=== PATIENT | female | born 1975 | race Caucasian/White ===

== ENCOUNTER 2019-11-24 13:12 | Outpatient (CLI) | payer BC, SELFPAY ==
[2019-11-24 13:54] LABS: Blood Urea Nitrogen 10 mg/dL (7-17); Calcium 9.1 mg/dL (8.4-10.2); Carbon Dioxide 24 mmol/L (22-30); Chloride 106 mmol/L (98-107); Estimated Glomerular Filt Rate > 60; Glucose 89 mg/dL (65-105); Potassium 3.8 mmol/L (3.4-5.0); Sodium 136 mmol/L (137-145)
== END 2019-11-24 13:13 | disposition home or self-care (01) ==
PROVIDERS: PCP Internal Medicine; Visit Provider Internal Medicine
DX: I10 Essential (primary) hypertension (principal); Z98.84 Bariatric surgery status
CPT/HCPCS: 36415; 80048; 82607

== ENCOUNTER 2019-12-22 08:46 | Outpatient (CLI) | payer BC, SELFPAY ==
[2019-12-22 09:34] LABS: Basophils Percent Auto 0.5 % (0.2-1.2); Eosinophils Absolute Auto 0.1 K/mm3 (0-0.3); Eosinophils Percent Auto 1.6 % (0-4.4); Hematocrit 40.8 % (37.0-47.0); Hemoglobin 13.8 g/dL (12.0-15.0); Immature Granulocyte Absolute 0.02 K/mm3 (0.00-0.031); Immature Granulocyte Percent A 0.3 % (0-0.5); Lymphocytes Absolute Auto 2.41 K/mm3 (0.9-3.2); Mean Corpuscular HGB Conc 33.8 g/dl (32-36); Mean Corpuscular Hemoglobin 31.1 pg (26-34); Mean Corpuscular Volume 91.9 fl (80-100); Monocytes Absolute Auto 0.5 K/mm3 (0.1-0.6); Monocytes Percent Auto 7.1 % (2.6-8.5); Neutrophils Absolute Auto 4.2 K/mm3 (1.3-6.7); Neutrophils Percent Auto 57.5 % (45.5-73.1); Platelet Count Result 250 k/mm3 (150-375); Red Blood Count 4.44 M/mm3 (4.2-5.4); Red Cell Distribution Width 13.1 % (11.5-14.5); White Blood Count 7.3 K/mm3 (4.5-10.0)
[2019-12-22 10:03] LABS: Iron 79 ug/dL (37-170)
[2019-12-22 10:14] LABS: Percent Iron Saturation 25 % (20-50)
== END 2019-12-22 08:47 | disposition home or self-care (01) ==
LOC: ANHLAB 08:48
PROVIDERS: PCP Internal Medicine; Visit Provider Internal Medicine
DX: G25.81 Restless legs syndrome (principal)
CPT/HCPCS: 36415; 82728; 83540; 83550; 85025

== ENCOUNTER 2020-01-05 23:08 | Emergency (ER) | payer BC, SELFPAY ==
[2020-01-05 23:14] VITALS: BP 128/71; PULSE 85; RESP 18; TEMP 36.8; O2SAT 98
--- NOTE | 2020-01-06 00:54 | PC.NURSE ---
called pt's name to waiting room to take her back to a room, no reply. will attempt again when next room available.
--- NOTE | 2020-01-06 01:01 | PC.NURSE ---
attempted to call pt from waiting room again, no answer.
== END 2020-01-06 01:01 | disposition left against medical advice (07) ==
PROVIDERS: PCP Internal Medicine
DX: M79.605 Pain in left leg (principal)
CPT/HCPCS: 99199

== ENCOUNTER 2020-02-09 09:09 | Outpatient (CLI) | payer BC, SELFPAY ==
--- NOTE | 2020-02-09 09:13 | ECG_ITS ---
Measurements Intervals [place] Rate: 61 P: 39 MD: 146 QRS: 46 QRSD: 96 T: 6 QT: 387 QTc: 391 Interpretive Statements SINUS RHYTHM DELAYED PRECORDIAL R/S TRANSITION BORDERLINE ST-T WAVE ABNORMALITY- INFERIOR LEADS BORDERLINE ECG Electronically Signed On 02-09-2020 12:50:45 CDT by Rayray Ruffin D.O.
[2020-02-09 09:55] LABS: Blood Urea Nitrogen 10 mg/dL (7-17); Calcium 9.1 mg/dL (8.4-10.2); Carbon Dioxide 27 mmol/L (22-30); Chloride 102 mmol/L (98-107); Estimated Glomerular Filt Rate > 60; Glucose 95 mg/dL (65-105); Potassium 3.6 mmol/L (3.4-5.0); Sodium 136 mmol/L (137-145)
== END 2020-02-09 09:10 | disposition home or self-care (01) ==
LOC: ANHSURGERY 09:13
PROVIDERS: Anesthesiology; PCP Internal Medicine; Visit Provider Surgery
DX: Z01.818 Encounter for other preprocedural examination (principal); Z51.81 Encounter for therapeutic drug level monitoring; I10 Essential (primary) hypertension
CPT/HCPCS: 36415; 80048; 93005

== ENCOUNTER 2020-02-16 00:32 | Outpatient (CLI) | payer BC, SELFPAY ==
[2020-02-16 19:23] LABS: SARS-CoV-2 RNA PCR Negative
== END 2020-02-16 00:33 | disposition home or self-care (01) ==
LOC: ANHCOVIDDT 00:32
PROVIDERS: PCP Internal Medicine; Visit Provider Surgery
DX: Z01.818 Encounter for other preprocedural examination (principal); Z11.59 Encounter for screening for other viral diseases
CPT/HCPCS: 87635; C9803; U0003

== ENCOUNTER 2020-02-19 02:18 | Day surgery (SDC) | payer BC, SELFPAY ==
[2020-02-06 11:52] VITALS: BMI 36.1
[2020-02-19] VITALS (10 sets, daily range): BP systolic 74–116; BP diastolic 37–67; PULSE 55–71; RESP 10–18; TEMP 36.1–36.2; O2SAT 99–100
--- NOTE | 2020-02-19 08:22 | WPDANESEPPF ---
Anes - Initial Pre Proc Eval Procedure: Operation Date: 02/19/20 12:00 Proposed Procedures p Rectal Exam Under Anesthesia, Lateral Internal Sphincterotomy, Excision Hemorrhoid Skin Tag - Dutch العراقي DO Date/Time: 02/19/20 08:22 Surgeon: Dutch العراقي DO Pre Op Diagnosis: anal fissure, residual hemorrhoid skin tag Patient Data Age: 44 Gender: F Height: 1.6 m Weight: 92.53 kg Allergies Allergy/AdvReac Type Severity Reaction Status Date / Time No Known Allergies Allergy Verified 02/19/20 10:31 Home Medications Medication Instructions Recorded Confirmed Type cyanocobalamin (vitamin B-12) 1,000 mcg PO DAILY 07/04/19 02/19/20 History 1,000 mcg tablet hydrocortisone 2.5 % topical cream 1 applic RECTAL DAILY PRN #28.35 gm 11/30/19 02/19/20 Rx with perineal applicator lisinopril 20 1 tablet PO DAILY #90 tablet 11/30/19 02/19/20 Rx mg-hydrochlorothiazide 12.5 mg tablet phentermine 8 mg tablet 8 mg PO DAILY tablet 11/30/19 02/19/20 History multivitamin 2 tablet PO DAILY 12/08/19 02/19/20 History ferrous sulfate 325 mg (65 mg 325 mg PO DAILY #30 tablet 12/22/19 02/19/20 Rx iron) tablet nystatin 100,000 unit/gram topical 1 applic TOPICAL .PRN gm 12/22/19 02/19/20 History powder albuterol sulfate 2.5 mg INHALATION DIRECTED PRN 02/06/20 02/19/20 History calcium carbonate-vitamin D3 1 tablet PO BID 02/06/20 02/19/20 History [Calcium 500 + D] multivitamin with minerals 1 tablet PO DAILY 02/06/20 02/19/20 History [Hair,Skin and Nails] ropinirole 0.5 mg PO HS 02/06/20 02/19/20 History Date of Service: 02/09/20 Procedure(s): CA 12 lead EKG Accession Number(s): [id number] cc: ~ Measurements Intervals [place] Rate: 61 P: 39 TX: 146 QRS: 46 QRSD: 96 T: 6 QT: 387 QTc: 391 Interpretive Statements SINUS RHYTHM DELAYED PRECORDIAL R/S TRANSITION BORDERLINE ST-T WAVE ABNORMALITY- INFERIOR LEADS BORDERLINE ECG Electronically Signed On 02-09-2020 12:50:45 CDT by Rayray Ruffin D.O. 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 Questions were solicited and answers provided to the satisfaction of the patient/family/POA.
[2020-02-19] MEDS: LACTATED RINGERS 1,000 ML 30 ML IV CONT ×2 (10:35→13:32)
[2020-02-19] MEDS: ACETAMINOPHEN 500 MG TABLET 1000 MG PO (10:40)
--- NOTE | 2020-02-19 11:13 | WPDHPUPDATE1 ---
History and Physical Update Update Date/Time: 02/19/20 11:13 History and Physical has been reviewed, including an updated exam of the patient. There are NO changes in the patient's condition. Risks, benefits, and alternatives have been discussed and questions answered. Patient agrees to proceed with procedure.
[2020-02-19] MEDS: ceFAZolin 2 GM/D5W 50 ML 2 GM/50 ML BAG IVPB (12:41)
--- NOTE | 2020-02-19 13:21 | P.OP_ITS ---
Procedure Note - Detailed Date of procedure: 02/19/20 Pre-op diagnosis: anal fissure, residual hemorrhoid skin tag Post-op diagnosis: same Procedure performed: 1. Rectal exam under anesthesia 2. Left lateral internal sphincterotomy 3. Excision of external hemorrhoid skin tag Description of procedure: * Procedure as well as risks, benefits, and alternatives were discussed with the patient. Written consent was obtained and placed in chart. Patient was brought back to surgical suite. She was placed supine on operating table. Time-out was done to confirm patient and procedure. She was then intubated by the anesthesia department. She was then repositioned to prone roseann-knife position. Her perirectal region was prepped and draped in sterile fashion using Betadine prep. Digital rectal exam was initially performed. The perianal area was then anesthetized using Exparel. A Hill-Justice anoscope was then inserted and the anal rectal canal was carefully inspected. No abnormalities were noted further up in the rectum, but anterior midline fissure was noted along with a right anterior external hemorrhoid skin tag. Skin tag was excised initially using a 15 blade scalpel by making an ellipse around the small residual hemorrhoid skin tag. The skin tag was excised completely and sent to the lab for pathology. Electrocautery was used for hemostasis. The Hill-Justice anoscope was then removed and a Fansler anoscope was inserted the left lateral area was identified and the intersphincteric groove was palpated. A 1 cm incision was made over the internal sphincter muscle using a 15 blade scalpel. A curved hemostat was then used to identify the internal sphincter muscle fibers and carefully isolate a bundle of fibers and transected using electrocautery. This was carried up high enough to allow for healing of the fissure. The anoderm was then reapproximated using 3 0 chromic simple interrupted sutures. Area was irrigated with sterile saline, 1 final inspection was made around the area and no other abnormalities were identified. Xeroform gauze was applied at the anal canal followed by fluff gauze, ABD pad, and mesh panties. The patient was then repositioned supine, extubated, and transferred to recovery. Anesthesia: GETA and local (Exparel) Surgeon: Dutch العراقي DO Estimated blood loss (mL): 5 Pathology: yes Complications: No immediate complications Condition: stable Disposition: same day Findings: This is a 44-year-old woman who presented with rectal pain and bleeding over the past couple months. She was initially found to have an anal fissure and was treated with nifedipine ointment. This helped minimally with the pain, but she was still having intermittent problems once the medicine would wear off. She was also found to have a small skin tag in the anterior midline region. After a couple months of treatment with nifedipine ointment, discussions were made with the patient about further treatment options. Decision was made to proceed with rectal exam under anesthesia with lateral internal sphincterotomy and excision of residual hemorrhoid skin tag. Rectal exam under anesthesia was performed. 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 This is also the location of her residual hemorrhoid skin tag which was just to the right of midline in the anterior region. The skin tag was excised using a 15 blade scalpel and this area was left open to allow for healing of the fissure. A left lateral internal sphincterotomy was performed. The remainder of the rectum appeared normal, no evidence of prolapsing internal hemorrhoids or other abnormalities.
--- NOTE | 2020-02-19 13:49 | SUR.PHASEI ---
1345- herber arrival to pacu, pt with decreased blood pressure. E[[hedrine administered per anesthesia. bp increased by increments.
--- NOTE | 2020-02-19 14:11 | SUR.PHASEI ---
1410- lying left side. appears to be sleeping at intervals after medications. When awakened , then voices c/o pain/pressure.
--- NOTE | 2020-02-19 14:24 | SUR.PHASEI ---
7794- family member notified via phone.
== END 2020-02-19 15:50 | disposition home or self-care (01) ==
PROVIDERS: PCP Internal Medicine; Visit Provider Surgery
PROC: (CPT 46080; principal; 2020-02-19 12:00)
DX: K60.2 Anal fissure, unspecified (principal); K64.4 Residual hemorrhoidal skin tags; I10 Essential (primary) hypertension; E78.2 Mixed hyperlipidemia; J44.9 Chronic obstructive pulmonary disease, unspecified; D86.9 Sarcoidosis, unspecified; E66.3 Overweight; Z68.34 Body mass index [BMI] 34.0-34.9, adult; Z98.84 Bariatric surgery status; Z79.51 Long term (current) use of inhaled steroids; Z79.899 Other long term (current) drug therapy
CPT/HCPCS: 46080; 88304; A9270; C9290; J0330; J0690; J1100; J1170; J2250; J2405; J2704; J3010; J7120

== ENCOUNTER 2020-03-06 13:33 | Emergency (ER) | payer BC, SELFPAY ==
--- NOTE | ~2020-03-06 | CT_ITS ---
EXAMINATION: CT abdomen pelvis w con DATE: 03/06/2020 16:05 INDICATION: Abdominal pain TECHNIQUE: Computed tomography (CT) of the abdomen and pelvis was performed with 100 cc Omnipaque 350 intravenous contrast. Automated exposure control and iterative reconstruction technique were employe d. Exam dose: 772.00 mGy-cm total exam DLP. COMPARISON: 05/25/2017 CT abdomen pelvis FINDINGS: 10 mm peripheral soft tissue mass in the anterolateral right lower lobe (Series 4 image 9). This is a new finding since 05/25/2017. Differential diagnosis includes focal infiltrate or round at electasis versus pulmonary granuloma or primary or secondary pulmonary malignancy. Short-term [address] follow-up is recommended. The lower lung zones are otherwise clear. Normal heart size. No pericardial or pleural effusion. The liver, gallbladder, bile ducts, spleen, pancreas and pancreatic duct are unremarkable. Normal mor phology of the adrenal glands. Approximately 5.5 mm right renal cyst. No other renal space occupying mass lesion is evident. There is unilateral left renal pelvic mucosal enhancement as well as enhancement of the left ureter a nd some urinary bladder wall enhancement and thickening. There is some pericystic fat stranding. The findings suggest cystitis and ascending left urinary tract infection. 2 cm left ovarian corpus luteum cyst with peripheral enhancement. The uterus and adnexal areas are ot herwise unremarkable. Normal caliber of the abdominal aorta. No intraperitoneal or retroperitoneal or pelvic mass lesion or adenopathy or ascites. Small sliding hiatal hernia. Postoperative change of the stomach. Normal appendix. No bowel obstruction, bowel wall thickening, pneumatosis or intraperitoneal free air . Small fat-containing umbilical hernia. Included skeletal structures are unremarkable. IMPRESSION: 10 mm peripheral soft tissue mass in the anterolateral right lower lobe (Series 4 image 9). This is a new finding since 05/25/2017. Differential diagnosis includes focal infiltrate or round atelectasis versus pulmonary granuloma or primary or secondary pulmonary malignancy. Short-term [address] follow-up is recommended. Unilateral enhancement of the left renal pelvis, left ureter as well as enhancement and mild thickeni ng of the wall of the urinary bladder and pericystic stranding, suggesting cystitis and ascending lef t urinary tract infection 2 cm left ovarian corpus luteum cyst 5.5 mm right renal cyst Small sliding hiatal hernia Postoperative change of the stomach Reviewed, dictated and finalized at [facility]. Reviewed, dictated and finalized at location B. IMPRESSION: 10 mm peripheral soft tissue mass in the anterolateral right lower lobe (Series 4 image 9). This is a new finding since 05/25/2017. Differential diagnosis includes focal infiltrate or round atelectasis versus pulmonary granu bouchra or primary or secondary pulmonary malignancy. Short-term [address] follow -up is recommended. Unilateral enhancement of the left renal pelvis, left ureter as well as enhance ment and mild thickening of the wall of the urinary bladder and pericystic stra nding, suggesting cystitis and ascending left urinary tract infection 2 cm left ovarian corpus luteum cyst 5.5 mm right renal cyst Small sliding hiatal hernia Postoperative change of the stomach
[2020-03-06 13:53] VITALS: BP 130/81; PULSE 76; RESP 15; TEMP 36.9; O2SAT 99
--- NOTE | 2020-03-06 14:48 | ED.GENADULT ---
HPI - General Adult General Chief complaint: Abdominal Pain Stated complaint: R flank pain Time Seen by Provider: 03/06/20 13:49 Source: patient History of Present Illness HPI narrative: Patient is a 44 y/o female complaining of generalized abdominal pain, back pain for last 2 days. She describes her pain as pressure and rates it as 10/10. There is no alleviating or exacerbating factor with her pain. She also has some bilateral back pain and dysuria. She has no fever, chill, vomiting or diarrhea. Related Data Home Medications Medication Instructions Recorded Confirmed cyanocobalamin (vitamin B-12) 1,000 mcg PO DAILY 07/04/19 02/19/20 1,000 mcg tablet phentermine 8 mg tablet 8 mg PO DAILY tablet 11/30/19 02/19/20 multivitamin 2 tablet PO DAILY 12/08/19 02/19/20 nystatin 100,000 unit/gram topical 1 applic TOPICAL .PRN gm 12/22/19 02/19/20 powder albuterol sulfate 2.5 mg INHALATION DIRECTED PRN 02/06/20 02/19/20 calcium carbonate-vitamin D3 1 tablet PO BID 02/06/20 02/19/20 [Calcium 500 + D] multivitamin with minerals 1 tablet PO DAILY 02/06/20 02/19/20 [Hair,Skin and Nails] ropinirole 0.5 mg PO HS 02/06/20 02/19/20 Allergies Allergy/AdvReac Type Severity Reaction Status Date / Time No Known Allergies Allergy Verified 03/06/20 13:57 Review of Systems Constitutional: Constitutional: Denies chills, Denies fever(s), Denies headache(s) and Denies weakness Eyes: Eyes: Denies blurry vision ENT: Denies headache(s) and Denies neck pain Cardiovascular: Cardiovascular: Denies chest pain and Denies dyspnea Respiratory: Respiratory: Denies cough and Denies dyspnea Gastrointestinal: Gastrointestinal: Reports abdominal pain, Denies diarrhea, Denies nausea and Denies vomiting Genitourinary: Genitourinary: Denies hematuria and Reports dysuria Musculoskeletal: Musculoskeletal: Reports back pain and Denies neck pain Neurologic: Denies headache(s) and Denies weakness [facility] Past Medical History Medical History Body mass index (bmi) 37.0-37.9, adult Chronic fatigue Essential (primary) hypertension Hypersomnia Mixed restrictive and obstructive lung disease Overweight (11/30/16) Sarcoid Unspecified hemorrhoids Surgical History Surgical History Gastric bypass status for obesity H/O hemorrhoidectomy History of x3 History of endometrial ablation Family History Family History Father Hypertension Mother Hypertension ASD (atrial septal defect) COPD (chronic obstructive pulmonary disease) Sibling Patient's sister is in good health Patient's brother is in good health Seizure Other Lung cancer Heart disease Other Diabetes mellitus Family history of malignant neoplasm Social History Social History Smoking status: Never smoker Alcohol intake: never Substance use: never 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 Gender identity (if verbalized by the patient): Female Spiritual care concerns: No Exam Const: General: no acute distress and well developed Orientation/consciousness: oriented to person, oriented to place, oriented to time and patient oriented x3 HENMT: Head: normocephalic Ears: external ears normal General nose exam: Normal external nose present Eyes: General: appearance normal, both eyes and all related structures Conjunctivae: conjunctivae normal Neck: Neck: normal visual inspection and full ROM Chest: Chest palpation & inspection: normal inspection of the chest and no tenderness Resp: Effort & Inspection: normal respiratory effort Auscultation: clear to auscultation bilaterally Cardio: Rate: regular rate Rhythm: regular rhythm GI: GI Palp: No abdominal tenderness and Yes Soft to palpation Skin: General skin exam:
[2020-03-06 14:58] LABS: Basophils Percent Auto 0.3 % (0.2-1.2); Eosinophils Absolute Auto 0.1 K/mm3 (0-0.3); Eosinophils Percent Auto 0.6 % (0-4.4); Hematocrit 40.9 % (37.0-47.0); Hemoglobin 13.7 g/dL (12.0-15.0); Immature Granulocyte Absolute 0.03 K/mm3 (0.00-0.031); Immature Granulocyte Percent A 0.2 % (0-0.5); Lymphocytes Absolute Auto 1.89 K/mm3 (0.9-3.2); Lymphocytes Percent Auto 14.7 % (18.3-44.2); Mean Corpuscular HGB Conc 33.5 g/dl (32-36); Mean Corpuscular Hemoglobin 31.1 pg (26-34); Mean Corpuscular Volume 92.7 fl (80-100); Mean Platelet Volume 11.5 fl (7.4-10.4); Monocytes Absolute Auto 0.8 K/mm3 (0.1-0.6); Monocytes Percent Auto 6.2 % (2.6-8.5); Neutrophils Absolute Auto 10.1 K/mm3 (1.3-6.7); Platelet Count Result 269 k/mm3 (150-375); Red Blood Count 4.41 M/mm3 (4.2-5.4); Red Cell Distribution Width 13.2 % (11.5-14.5); White Blood Count 12.9 K/mm3 (4.5-10.0)
[2020-03-06 15:04] LABS: Add Urine Microscopic? YES; Appearance Urine Cloudy (Clear); Bacteria Urine Trace /hpf; Bilirubin Urine Negative (Negative); Blood Urine 2+ (Negative); Color Urine Yellow (Yellow); Glucose Urine UA Negative (Negative); Ketones Urine Negative (Negative); Leukocyte Esterase Ur 2+ LEU/UL (Negative); Mucus Urine Rare /lpf; Nitrate Urine Negative (Negative); Protein Urine 2+ mg/dL (Negative); RBC Urine 21-50 /hpf (0-2); Specific Grav Ur 1.017 (1.001-1.035); Squamous Epithelial Cell Urine Moderate /hpf (Few); Urobilinogen Urine Negative mg/dL (<2.0); WBC Urine >75 /hpf
[2020-03-06 15:11] LABS: Alanine Aminotransferase 18 U/L (4-35); Albumin Level 4.2 g/dL (3.5-5.1); Alkaline Phosphatase 56 U/L (38-126); Aspartate Amino Transferase 19 U/L (14-36); Bilirubin,Total 0.4 mg/dL (0.2-1.3); Blood Urea Nitrogen 11 mg/dL (7-17); Carbon Dioxide 23 mmol/L (22-30); Chloride 105 mmol/L (98-107); Estimated CRCL calculation 106 ml/min; Estimated Glomerular Filt Rate > 60; Glucose 89 mg/dL (65-105); Sodium 137 mmol/L (137-145)
--- NOTE | 2020-03-06 15:34 | PC.NURSE ---
Pt states she had an ablation so there is no chance she can be
[2020-03-06 15:40] VITALS: BP 142/78; PULSE 75; RESP 15; O2SAT 100
[2020-03-06 18:20] VITALS: BP 134/65; PULSE 75; RESP 15; O2SAT 100
== END 2020-03-06 19:15 | disposition home or self-care (01) ==
PROVIDERS: Emergency Provider Emergency Medicine; PCP Internal Medicine
DX: N39.0 Urinary tract infection, site not specified (principal); R10.84 Generalized abdominal pain; I10 Essential (primary) hypertension
CPT/HCPCS: 36415; 74177; 80053; 81001; 85025; 87086; 96365; 99284; J0696; Q9967

== ENCOUNTER 2020-03-15 15:22 | Outpatient (CLI) | payer BC, SELFPAY ==
--- NOTE | ~2020-03-15 | XR_ITS ---
XR chest 2V DATE: 03/15/2020 16:02 INDICATION: Right-sided chest pain TECHNIQUE: PA and lateral views COMPARISON: 07/19/2018 two-view chest FINDINGS: Chronic mildly increased markings in the right lower lung zone, stable since 07/19/2018, jonatan childers due to scarring. No interval active infiltrate or consolidation is detected. No pleural effusion or pulmonary vascular congestion or pneumothorax. Normal heart size. IMPRESSION: Stable mild scarring in the right lower lung; no interval active cardiopulmonary disease since 07/19/2018 Reviewed, dictated and finalized at location [facility]. IMPRESSION: Stable mild scarring in the right lower lung; no interval active ca rdiopulmonary disease since 07/19/2018
== END 2020-03-15 15:23 | disposition home or self-care (01) ==
PROVIDERS: PCP Internal Medicine; Visit Provider Internal Medicine
DX: R07.9 Chest pain, unspecified (principal); R91.8 Other nonspecific abnormal finding of lung field
CPT/HCPCS: 71046

== ENCOUNTER 2020-05-04 09:59 | Emergency (ER) | payer BC, SELFPAY ==
--- NOTE | ~2020-05-04 | XR_ITS ---
EXAMINATION: XR shoulder LT min 2V EXAM DATE: 05/04/2020 10:29 INDICATION: No known recent injury provided at this time. Pain of the left shoulder. TECHNIQUE: The following left shoulder projections obtained: frontal projection with internal rotatio n, frontal projection with external rotation, Grashey, and scapular Y view (4+ views). There is no p rior study for comparison. FINDINGS: No evidence of left shoulder rotator cuff calcific tendinosis. There is mild left glenoh umeral and acromioclavicular joint primary osteoarthritis. There are no acute fractures or dislocatio ns identified. There is no subcutaneous gas. The soft tissue is unremarkable. There are no radiop aque foreign bodies. IMPRESSION: Mild left shoulder osteoarthritis. Reviewed, dictated and finalized at location A.
[2020-05-04 10:09] VITALS: BP 143/83; PULSE 63; RESP 18; TEMP 36.2; O2SAT 100
[2020-05-04] MEDS: LIDOCAINE 5% PATCH 1 PATCH TRANSDERM (10:53)
[2020-05-04] MEDS: KETOROLAC (*BKC) 60 MG/2 ML VIAL 30 MG IM (10:53)
--- NOTE | 2020-05-04 11:07 | ED.GENADULT ---
HPI - General Adult General Chief complaint: Extremity Injury, Upper Stated complaint: left shoulder/arm pain Time Seen by Provider: 05/04/20 10:13 Source: patient Mode of arrival: ambulatory Limitations: no limitations History of Present Illness HPI narrative: Patient 45-year-old female who presents to emergency department for evaluation of left shoulder pain localized to the rotator cuff musculature for the last 2 days is an aching pain worse with palpation activity and movement Related Data Home Medications Medication Instructions Recorded Confirmed cyanocobalamin (vitamin B-12) 1,000 mcg PO DAILY 07/04/19 03/07/20 1,000 mcg tablet multivitamin 2 tablet PO DAILY 12/08/19 03/07/20 calcium carbonate-vitamin D3 1 tablet PO BID 02/06/20 03/07/20 [Calcium 500 + D] ropinirole 0.5 mg PO HS 02/06/20 03/07/20 Allergies Allergy/AdvReac Type Severity Reaction Status Date / Time No Known Allergies Allergy Verified 05/04/20 10:13 Review of Systems Review of Systems: All systems reviewed & are unremarkable except as noted in HPI and below PMFSH Past Medical History Medical History Body mass index (bmi) 37.0-37.9, adult Chronic fatigue Essential (primary) hypertension Hypersomnia Mixed restrictive and obstructive lung disease Overweight (11/30/16) Sarcoid Unspecified hemorrhoids Surgical History Surgical History Gastric bypass status for obesity H/O hemorrhoidectomy History of x3 History of endometrial ablation Family History Family History Father Hypertension Mother Hypertension ASD (atrial septal defect) COPD (chronic obstructive pulmonary disease) Sibling Patient's sister is in good health Patient's brother is in good health Seizure Other Lung cancer Heart disease Other Diabetes mellitus Family history of malignant neoplasm Social History Social History Smoking status: Never smoker Alcohol intake: never Substance use: never 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 HEAD: Normocephalic, atraumatic. EYES: PERRLA and EOMI. ENT: Nares clear, no rhinorrhea or epistaxis. Mucous membranes moist. Face CHEST: Clear to auscultation. No respiratory distress. No wheezes rales or rhonchi HEART: Regular rate and rhythm. No murmur heard. Normal peripheral pulses. EXTREMITIES: Tenderness of the anterior left rotator cuff musculature no deformities noted remainder of extremity nontender no cervical SKIN: Warm, dry, no rash. NEURO: No focal deficits. Alert and oriented x3. Neurovascularly intact. Capillary refill less than 2 seconds PSYCH: Normal mood and affect. Course Course Emergency Course: Patient in the room in no distress aware of case findings treatment plan and diagnosis agreeing to follow-up as directed Vital Signs Vital signs: Vital Signs Temperature 97.2 F L 05/04/20 10:09 Pulse Rate 63 05/04/20 10:09 Respiratory Rate 18 05/04/20 10:09 Blood Pressure 143/83 H 05/04/20 10:09 Pulse Oximetry 100 05/04/20 10:09 Temperature 97.2 F L 05/04/20 10:09 Pulse Rate 63 05/04/20 10:09 Respiratory Rate 18 05/04/20 10:09 Blood Pressure 143/83 H 05/04/20 10:09 Pulse Oximetry 100 05/04/20 10:09 Medical Decision Making [facility] Narrative Medical decision making narrative: Patients injury or pain is consistent with musculoskeletal etiology. No signs of neurological or vascular compromise on exam. Compartments and tisues are soft without signs of compartment syndrome. Pain is felt appropriate for further evaluation on an
[2020-05-04 11:23] VITALS: BP 148/91; PULSE 66; RESP 20; O2SAT 99
== END 2020-05-04 11:24 | disposition home or self-care (01) ==
PROVIDERS: Emergency Provider Emergency Medicine; PCP Internal Medicine
DX: M25.512 Pain in left shoulder (principal); I10 Essential (primary) hypertension; Z98.84 Bariatric surgery status; J44.9 Chronic obstructive pulmonary disease, unspecified; D86.9 Sarcoidosis, unspecified; M19.012 Primary osteoarthritis, left shoulder
CPT/HCPCS: 73030; 96372; 99283; A9270; J1885

== ENCOUNTER 2020-05-30 13:47 | Outpatient (CLI) | payer BC, SELFPAY ==
[2020-05-30 14:14] LABS: Anion Gap 5 mmol/L (8-16); Blood Urea Nitrogen 12 mg/dL (7-17); Carbon Dioxide 31 mmol/L (22-30); Chloride 102 mmol/L (98-107); Cholesterol 173 mg/dL (0-200); Estimated Glomerular Filt Rate > 60; Glucose 84 mg/dL (65-105); HDL Direct 39 mg/dL; Potassium 4.2 mmol/L (3.4-5.0); Sodium 138 mmol/L (137-145); Triglycerides 104 mg/dL (<150)
[2020-05-30 14:25] LABS: LDL Cholesterol Direct 120 mg/dL
== END 2020-05-30 13:48 | disposition home or self-care (01) ==
LOC: ANHLAB 13:49
PROVIDERS: PCP Internal Medicine; Visit Provider Internal Medicine
DX: I10 Essential (primary) hypertension (principal); Z13.220 Encounter for screening for lipoid disorders; Z98.84 Bariatric surgery status
CPT/HCPCS: 36415; 80048; 80061; 82607

== ENCOUNTER 2020-06-07 13:42 | Outpatient (CLI) | payer BC, SELFPAY ==
--- NOTE | ~2020-06-07 | CT_ITS ---
EXAMINATION:CT chest wo con DATE: 06/07/2020 13:59 INDICATION: Right lung nodule. TECHNIQUE: Computed tomography (CT) of the chest was performed without intravenous contrast. Automate d exposure control and iterative reconstruction technique were employed. The dose-length product (DLP ) was 176.12 mGy-cm. COMPARISON: Chest CT 05/13/2018 FINDINGS: There is a 10 mm nodule in right lower lobe, decreased from 13 mm on 05/13/18. There is a s table cluster of surrounding smaller nodules measuring up to 5 mm. There are scattered 1-2 mm nodules in both lungs, which is a chronic finding. No pleural effusion. Calcified right hilar and subcarinal lymph nodes are consistent with old granulomatous disease. The heart size is normal. No pericardial effusion. There are surgical changes of the stomach. There is mild thoracic spondylosis. IMPRESSION: 1. Improved and stable pulmonary nodules, consistent with granulomatous disease. Reviewed, dictated and finalized at location A. IMEN PROCESSOR IMPRESSION: 1. Improved and stable pulmonary nodules, consistent with granulomatous disease .
== END 2020-06-07 13:43 | disposition home or self-care (01) ==
PROVIDERS: PCP Internal Medicine; Visit Provider Internal Medicine
DX: R91.8 Other nonspecific abnormal finding of lung field (principal)
CPT/HCPCS: 71250

== ENCOUNTER 2020-11-28 10:08 | Outpatient (CLI) | payer OTHER, BC, SELFPAY ==
--- NOTE | ~2020-11-28 | XR_ITS ---
EXAMINATION: XR chest 2V 11/28/2020 10:26 INDICATION: Chest pain PROCEDURE: 2 view chest COMPARISON: Comparison to multiple prior studies sequentially, with oldest reviewed study dated 09/2017. FINDINGS: The lungs are clear. The cardiomediastinal silhouette is within normal limits. There are no pleural effusions. There is no pneumothorax suspected. IMPRESSION: 1: NO ACUTE CARDIOPULMONARY DISEASE. Reviewed, dictated and finalized at location B.
[2020-11-28 11:41] LABS: Iron 98 ug/dL (37-170)
[2020-11-28 12:12] LABS: Percent Iron Saturation 27 % (20-50)
== END 2020-11-28 10:09 | disposition home or self-care (01) ==
PROVIDERS: PCP Internal Medicine; Visit Provider Internal Medicine
DX: G25.81 Restless legs syndrome (principal); R07.89 Other chest pain
CPT/HCPCS: 36415; 71046; 82728; 83540; 83550

== ENCOUNTER 2020-12-27 03:38 | Emergency (ER) | payer OTHER, BC, SELFPAY ==
[2020-12-27 03:43] VITALS: BP 147/95; PULSE 78; RESP 18; TEMP 36.7; O2SAT 98
--- NOTE | 2020-12-27 03:57 | ED.FEMALEGU ---
HPI - Female Genitourinary General Chief complaint: Urogenital-Female Stated complaint: Lower abdominal pain Time Seen by Provider: 12/27/20 03:57 Source: patient Mode of arrival: ambulatory Limitations: no limitations History of Present Illness HPI Narrative: Patient is a 45-year-old female complaining of lower abdominal pain, dull, accompanied by urinary urgency and dysuria that started tonight. Patient denies any chest pain, shortness of breath, nausea, vomiting, diarrhea, fever or chills Related Data Home Medications Medication Instructions Recorded Confirmed cyanocobalamin (vitamin B-12) 1,000 mcg PO DAILY 07/04/19 11/28/20 1,000 mcg tablet multivitamin 2 tablet PO DAILY 12/08/19 11/28/20 calcium carbonate-vitamin D3 1 tablet PO BID 02/06/20 11/28/20 [Calcium 500 + D] Allergies Allergy/AdvReac Type Severity Reaction Status Date / Time No Known Allergies Allergy Verified 12/27/20 04:16 Review of Systems Review of Systems: All systems reviewed & are unremarkable except as noted in HPI and below Constitutional: Constitutional: Denies body ache(s), Denies chills, Denies excessive sweating, Denies fatigue, Denies fever(s), Denies headache(s), Denies lethargy, Denies malaise, Denies weakness and Denies weight loss Eyes: Eyes: Denies blurry vision, Denies change in vision and Denies loss of vision ENT: Denies dizziness, Denies ear discharge, Denies headache(s), Denies lip swelling, Denies epistaxis, Denies nasal congestion, Denies neck pain, Denies throat swelling and Denies tongue swelling Cardiovascular: Cardiovascular: Denies chest pain, Denies chest pain at rest, Denies chest pain with activity, Denies diaphoresis, Denies rapid heart rate, Denies edema, Denies irregular heart rhythm, Denies lightheadedness, Denies palpitations, Denies dyspnea and Denies dyspnea on exertion Respiratory: Respiratory: Denies chest congestion, Denies cough, Denies hemoptysis, Denies dyspnea and Denies dyspnea on exertion Gastrointestinal: Gastrointestinal: Denies abdominal pain, Denies melena, Denies hematochezia, Denies diarrhea, Denies nausea, Denies vomiting and Denies hematemesis Musculoskeletal: Musculoskeletal: Denies abnormal gait, Denies deformity, Denies joint swelling, Denies limited range of motion, Denies neck pain and Denies numbness Neurologic: Denies Abnormal speech present, Denies abnormal gait, Denies confusion, Denies dizziness, Denies headache(s), Denies focal weakness, Denies loss of vision, Denies numbness, Denies Other visual disturbances, Denies Sensory deficit (Neuro) and Denies weakness Psychiatric: Psychiatric: Denies confusion, Denies depression, Denies auditory hallucinations, Denies homicidal ideation and Denies suicidal ideation Endocrine: Endocrine: Denies cold intolerance, Denies excessive sweating, Denies fatigue, Denies heat intolerance and Denies palpitations Hematologic/Lymphatic: Hematologic/Lymphatic: Denies easy bleeding and Denies easy bruising Allergic/Immunologic: Allergic/Immunologic: Denies lip swelling, Denies throat swelling and Denies tongue swelling PMFSH Past Medical History Medical History Body mass index (bmi) 37.0-37.9, adult Chronic fatigue Essential (primary) hypertension Hypersomnia Mixed restrictive and obstructive lung disease Overweight (11/30/16) Sarcoid Unspecified hemorrhoids Surgical History Surgical History Gastric bypass status for obesity H/O hemorrhoidectomy History of x3 History of endometrial ablation Family History Family History Father Hypertension Mother Hypertension ASD (atrial septal defect) COPD (chronic obstructive pulmonary disease) Sibling Patient's sister is in good health Patient's brother is in good health Seizure Other Lung cancer Heart disease Other
[2020-12-27 04:42] LABS: Add Urine Microscopic? YES; Appearance Urine Cloudy (Clear); Bacteria Urine 2+ /hpf; Bilirubin Urine Negative (Negative); Blood Urine 2+ (Negative); Color Urine Yellow (Yellow); Glucose Urine UA Negative (Negative); Ketones Urine Negative (Negative); Leukocyte Esterase Ur 3+ LEU/UL (Negative); Mucus Urine Few /lpf; Nitrate Urine Negative (Negative); Protein Urine 3+ mg/dL (Negative); RBC Urine 51-75 /hpf (0-2); Specific Grav Ur 1.011 (1.001-1.035); Squamous Epithelial Cell Urine Occasional /hpf (Few); Urobilinogen Urine Negative mg/dL (<2.0); WBC Clumps Urine Present /HPF; WBC Urine >75 /hpf
[2020-12-27 05:12] LABS: Alanine Aminotransferase 16 U/L (4-35); Albumin Level 4.2 g/dL (3.5-5.1); Alkaline Phosphatase 71 U/L (38-126); Anion Gap 8 mmol/L (8-16); Aspartate Amino Transferase 25 U/L (14-36); Bilirubin,Total 0.3 mg/dL (0.2-1.3); Blood Urea Nitrogen 9 mg/dL (7-17); Calcium 9.3 mg/dL (8.4-10.2); Carbon Dioxide 29 mmol/L (22-30); Chloride 105 mmol/L (98-107); Estimated CRCL calculation 92 ml/min; Estimated Glomerular Filt Rate > 60; Glucose 98 mg/dL (65-105); Lipase 70 U/L (23-300); Potassium 3.9 mmol/L (3.4-5.0); Sodium 142 mmol/L (137-145)
[2020-12-27 05:25] LABS: Basophils Absolute Auto 0.1 K/mm3 (0.0-0.1); Basophils Percent Auto 0.6 % (0.2-1.2); Eosinophils Absolute Auto 0.2 K/mm3 (0-0.3); Eosinophils Percent Auto 1.7 % (0-4.4); Hematocrit 43.5 % (37.0-47.0); Immature Granulocyte Absolute 0.04 K/mm3 (0.00-0.031); Immature Granulocyte Percent A 0.4 % (0-0.5); Lymphocytes Absolute Auto 2.41 K/mm3 (0.9-3.2); Lymphocytes Percent Auto 25.4 % (18.3-44.2); Mean Corpuscular HGB Conc 32.2 g/dl (32-36); Mean Corpuscular Hemoglobin 29.4 pg (26-34); Mean Corpuscular Volume 91.4 fl (80-100); Mean Platelet Volume 10.6 fl (7.4-10.4); Monocytes Absolute Auto 0.6 K/mm3 (0.1-0.6); Monocytes Percent Auto 6.4 % (2.6-8.5); Neutrophils Absolute Auto 6.2 K/mm3 (1.3-6.7); Neutrophils Percent Auto 65.5 % (45.5-73.1); Platelet Count Result 281 k/mm3 (150-375); Red Blood Count 4.76 M/mm3 (4.2-5.4); Red Cell Distribution Width 12.9 % (11.5-14.5); White Blood Count 9.5 K/mm3 (4.5-10.0)
[2020-12-27] MEDS: KETOROLAC 30 MG/ML VIAL (*BKC) IV PUSH (05:25)
[2020-12-27 05:28] VITALS: BP 154/97; PULSE 69; RESP 18; O2SAT 100
[2020-12-27 06:02] VITALS: BP 133/98; PULSE 64; RESP 16; O2SAT 98
== END 2020-12-27 06:02 | disposition home or self-care (01) ==
PROVIDERS: Emergency Provider Emergency Medicine; PCP Internal Medicine
DX: N39.0 Urinary tract infection, site not specified (principal); I10 Essential (primary) hypertension; J44.9 Chronic obstructive pulmonary disease, unspecified; E66.3 Overweight; Z68.35 Body mass index [BMI] 35.0-35.9, adult; R53.82 Chronic fatigue, unspecified; D86.9 Sarcoidosis, unspecified; Z98.84 Bariatric surgery status
CPT/HCPCS: 36415; 80053; 81001; 83690; 85025; 87077; 87086; 87088; 87186; 96374; 99284; J1885

== ENCOUNTER 2021-02-12 11:08 | Outpatient (CLI) | payer OTHER, BC, SELFPAY ==
--- NOTE | ~2021-02-12 | XR_ITS ---
XR foot RT min 3V DATE: 02/12/2021 11:29 INDICATION: Lateral foot pain for one week. No known injury. TECHNIQUE: 4 views COMPARISON: None FINDINGS: Prominent plantar and posterior calcaneal enthesopathy. Mild osteoarthritis at the first metatarsophalangeal joint. No fracture, dislocation, periosteal reaction or bone destruction is detected. IMPRESSION: Prominent plantar and posterior calcaneal enthesopathy Mild osteoarthritis at the first metatarsophalangeal joint Reviewed, dictated and finalized at location B.
== END 2021-02-12 11:09 | disposition home or self-care (01) ==
PROVIDERS: PCP Internal Medicine; Visit Provider Internal Medicine
DX: M79.671 Pain in right foot (principal); M77.31 Calcaneal spur, right foot; M19.071 Primary osteoarthritis, right ankle and foot
CPT/HCPCS: 73630

== ENCOUNTER 2021-09-09 10:44 | Emergency (ER) | payer OTHER, BC, SELFPAY ==
[2021-09-09 10:51] VITALS: BP 156/80; PULSE 76; RESP 16; TEMP 36.4; O2SAT 100
--- NOTE | 2021-09-09 11:05 | ED.DENTAL ---
HPI - Dental/Oral General Chief complaint: Dental/Oral Stated complaint: FACIAL SWELLING Source: patient Mode of arrival: ambulatory Limitations: no limitations History of Present Illness HPI Narrative: 46 year old female presents to urgent care with complaints of swelling to her right upper gums and swelling to her right facial cheek since yesterday. Patient did take [id number] ibuprofen with minimal relief. Patient denies fever, bodies, chills, nausea, vomiting or diarrhea. Onset (ago): day(s) (1) Duration: constant Relieving factors: nothing Exacerbating factors: nothing Associated symptoms: gum swelling Related Data Home Medications Medication Instructions Recorded Confirmed multivitamin 2 tablet PO DAILY 12/08/19 06/18/21 calcium carbonate-vitamin D3 1 tablet PO BID 02/06/20 06/18/21 [Calcium 500 + D] mecobalamin (vitamin B12) 5,000 mcg PO 02/12/21 06/18/21 mcg disintegrating tablet Allergies Allergy/AdvReac Type Severity Reaction Status Date / Time No Known Allergies Allergy Verified 08/15/21 11:13 Review of Systems Constitutional: Constitutional: Denies chills, Denies fatigue, Denies fever(s) and Denies weakness ENT: Comments: Right upper gum pain and swelling, right facial cheek swelling Cardiovascular: Cardiovascular: Denies chest pain, Denies rapid heart rate and Denies slow heart rate Respiratory: Respiratory: Denies chest congestion, Denies cough, Denies dyspnea and Denies wheezing Gastrointestinal: Gastrointestinal: Denies abdominal pain, Denies diarrhea, Denies nausea and Denies vomiting Integumentary/Breasts: Skin/Breast: Denies rash PMFSH Past Medical History Medical History Abdominal pannus Anal fissure Anal pruritus Body mass index (bmi) 37.0-37.9, adult Chest wall pain Chronic fatigue Chronic right shoulder pain Degenerative joint disease of knee Encounter for long-term (current) use of other medications Encounter for surgical aftercare following surgery on the digestive system Essential (primary) hypertension Hypersomnia Left knee pain Medial meniscus tear Mixed restrictive and obstructive lung disease Overweight (11/30/16) Rectal bleeding Residual hemorrhoidal skin tag Restless legs syndrome Right foot pain Sarcoid Symptomatic abdominal apron Tinea corporis Unspecified hemorrhoids Yeast infection of the skin Surgical History Surgical History Gastric bypass status for obesity H/O hemorrhoidectomy History of x3 History of endometrial ablation Family History Family History Father Hypertension Mother Hypertension ASD (atrial septal defect) COPD (chronic obstructive pulmonary disease) Sibling Patient's sister is in good health Patient's brother is in good health Seizure Other Lung cancer Heart disease Other Diabetes mellitus Family history of malignant neoplasm Social History Social History Second hand tobacco smoke exposure: Yes Alcohol intake: current Alcohol use details: Special Occasions Substance use: never Substance use type: does not use 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 There is no relevant family history pertinent to the presenting complaint. Exam Const: General: no acute distress and alert Nutritional Appearance: well nourished Orientation/consciousness: patient oriented x3 HENMT: Face and sinus: normal facial exam Mouth: Yes lip normal and Yes moist mucous membranes Teeth and gingiva: dentition normal Throat: uvula midline Other: Mild swelling noted to right uppe
== END 2021-09-09 11:16 | disposition home or self-care (01) ==
PROVIDERS: Emergency Provider Nurse Practitioner Family; PCP Internal Medicine
DX: B99.9 Unspecified infectious disease (principal); M17.10 Unilateral primary osteoarthritis, unspecified knee; I10 Essential (primary) hypertension; G25.81 Restless legs syndrome; Z98.84 Bariatric surgery status
CPT/HCPCS: 99213; G0463

== ENCOUNTER 2021-11-13 13:36 | Emergency (ER) | payer OTHER, BC, SELFPAY ==
[2021-11-13] VITALS (25 sets, daily range): BP systolic 143–175; BP diastolic 78–98; PULSE 62–80; RESP 13–31; TEMP 36.9; O2SAT 93–100
--- NOTE | ~2021-11-13 | XR_ITS ---
EXAMINATION: XR chest 2V DATE: 11/13/2021 14:01 INDICATION: Right-sided chest pain. TECHNIQUE: Frontal and lateral views of the chest were obtained. COMPARISON: Chest single view 09/10/2021 FINDINGS: The chest demonstrates clear lungs without pneumonia, pleural effusion, or pneumothorax. Th e heart size is normal. IMPRESSION: 1. No acute cardiopulmonary disease. Reviewed, dictated and finalized at location A.
--- NOTE | 2021-11-13 13:45 | ECG_ITS ---
Measurements Intervals [place]ps Rate: 72 P: 27 VT: 131 QRS: 48 QRSD: 103 T: 7 QT: 385 QTc: 422 Interpretive Statements SINUS RHYTHM NONSPECIFIC T-WAVE ABNORMALITY ABNORMAL ECG COMPARED TO ECG 02/09/2020 09:56:24 NO SIGNIFICANT CHANGES Electronically Signed On 11-13-2021 17:01:39 CDT by Desean Mauricio M.D.
--- NOTE | 2021-11-13 13:50 | ED.CHESTPAIN ---
HPI - Chest Pain General Chief Complaint: Chest Pain Stated Complaint: chest pain, high bp Time Seen by Provider: 11/13/21 13:40 Source: RN notes reviewed History of Present Illness HPI narrative: Patient presents emergency department from work for chest pain. Patient states that she has had a history for the past 2 years of having intermittent pain in her right chest pain is described as sharp and stabbing it does not radiate and last several minutes and resolve states has had no previous work-up for this and these episodes happen several times a day states that she was work today and had an episode that was more severe and was recommended to come to the ER for further evaluation states the pain has resolved at this time she denies any fevers or chills shortness of breath abdominal pain nausea vomiting or any other symptoms. Patient states that symptoms started after she had a gastric sleeve surgery performed 2 years ago and is worse when she drinks caffeine Related Data Home Medications Medication Instructions Recorded Confirmed multivitamin 2 tablet PO DAILY 12/08/19 06/18/21 calcium carbonate-vitamin D3 1 tablet PO BID 02/06/20 06/18/21 [Calcium 500 + D] mecobalamin (vitamin B12) 5,000 mcg PO 02/12/21 06/18/21 mcg disintegrating tablet Allergies Allergy/AdvReac Type Severity Reaction Status Date / Time No Known Allergies Allergy Verified 11/13/21 13:56 Review of Systems Review of Systems: Gen.: Denies fevers or chills Eyes: Denies eye pain or visual change ENT: Denies congestion Respiratory: Denies shortness of breath or cough CV: See HPI GI: Denies abdominal pain nausea, emesis or diarrhea Musculoskeletal: Denies back pain or muscle pain Neuro: Denies numbness, tingling, weakness or focal weakness Skin: Denies rash Except as documented, all other systems reviewed and negative PMFSH Past Medical History Medical History Abdominal pannus Anal fissure Anal pruritus Body mass index (bmi) 37.0-37.9, adult Chest wall pain Chronic fatigue Chronic right shoulder pain Degenerative joint disease of knee Encounter for long-term (current) use of other medications Encounter for surgical aftercare following surgery on the digestive system Essential (primary) hypertension Hypersomnia Left knee pain Medial meniscus tear Mixed restrictive and obstructive lung disease Overweight (11/30/16) Rectal bleeding Residual hemorrhoidal skin tag Restless legs syndrome Right foot pain Sarcoid Symptomatic abdominal apron Tinea corporis Unspecified hemorrhoids Yeast infection of the skin Surgical History Surgical History Gastric bypass status for obesity H/O hemorrhoidectomy History of x3 History of endometrial ablation Family History Family History Father Hypertension Mother Hypertension ASD (atrial septal defect) COPD (chronic obstructive pulmonary disease) Sibling Patient's sister is in good health Patient's brother is in good health Seizure Other Lung cancer Heart disease Other Diabetes mellitus Family history of malignant neoplasm Social History Social History Second hand tobacco smoke exposure: Yes Alcohol intake: current Alcohol use details: Special Occasions Substance use: never Substance use type: does not use 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 CARDIOVASCULAR: Regular rate and rhythm without murmurs rubs
[2021-11-13 13:59] LABS: Basophils Percent Auto 0.5 % (0.2-1.2); Eosinophils Absolute Auto 0.1 K/mm3 (0-0.3); Eosinophils Percent Auto 1.4 % (0-4.4); Hematocrit 35.6 % (37.0-47.0); Immature Granulocyte Absolute 0.02 K/mm3 (0.00-0.031); Immature Granulocyte Percent A 0.2 % (0-0.5); Lymphocytes Absolute Auto 2.43 K/mm3 (0.9-3.2); Lymphocytes Percent Auto 30.2 % (18.3-44.2); Mean Corpuscular HGB Conc 30.9 g/dl (32-36); Mean Corpuscular Hemoglobin 26.8 pg (26-34); Mean Corpuscular Volume 86.6 fl (80-100); Mean Platelet Volume 10.7 fl (7.4-10.4); Monocytes Absolute Auto 0.5 K/mm3 (0.1-0.6); Monocytes Percent Auto 6.2 % (2.6-8.5); Neutrophils Absolute Auto 4.9 K/mm3 (1.3-6.7); Neutrophils Percent Auto 61.5 % (45.5-73.1); Platelet Count Result 269 k/mm3 (150-375); Red Blood Count 4.11 M/mm3 (4.2-5.4); Red Cell Distribution Width 15.1 % (11.5-14.5)
[2021-11-13 14:13] LABS: Alanine Aminotransferase 16 U/L (4-35); Alkaline Phosphatase 57 U/L (38-126); Anion Gap 7 mmol/L (8-16); Aspartate Amino Transferase 25 U/L (14-36); Bilirubin,Total < 0.1 mg/dL (0.2-1.3); Blood Urea Nitrogen 11 mg/dL (7-17); Calcium 8.6 mg/dL (8.4-10.2); Carbon Dioxide 25 mmol/L (22-30); Chloride 105 mmol/L (98-107); Estimated CRCL calculation 108 ml/min; Estimated Glomerular Filt Rate > 60; Glucose 88 mg/dL (65-110); Lipase 127 U/L (23-300); Potassium 3.8 mmol/L (3.4-5.0); Sodium 137 mmol/L (137-145)
[2021-11-13 14:15] LABS: INR 1.1; Partial Thromboplastin Time 29.8 SECONDS (22.3-36.8); Prothrombin Time 13.3 Seconds (11.1-14.7)
[2021-11-13 14:23] LABS: Troponin I < 0.012 ng/mL (0.000-0.034)
[2021-11-13 17:13] LABS: Troponin I < 0.012 ng/mL (0.000-0.034)
== END 2021-11-13 18:00 | disposition home or self-care (01) ==
PROVIDERS: Emergency Provider Emergency Medicine; PCP Internal Medicine
DX: R07.89 Other chest pain (principal); I10 Essential (primary) hypertension; J41.8 Mixed simple and mucopurulent chronic bronchitis; R53.82 Chronic fatigue, unspecified; G25.81 Restless legs syndrome; Z98.84 Bariatric surgery status; Z77.22 Contact with and (suspected) exposure to environmental tobacco smoke (acute) (chronic); R94.31 Abnormal electrocardiogram [ECG] [EKG]
CPT/HCPCS: 36415; 71046; 80053; 83690; 84484; 85025; 85380; 85610; 85730; 93005; 99284

== ENCOUNTER 2021-11-29 09:30 | Outpatient (CLI) | payer OTHER, BC, SELFPAY ==
[2021-11-29 09:51] LABS: Hematocrit 35.1 % (37.0-47.0); Hemoglobin 11.3 g/dL (12.0-15.0); Mean Corpuscular HGB Conc 32.2 g/dl (32-36); Mean Platelet Volume 10.7 fl (7.4-10.4); Platelet Count Result 293 k/mm3 (150-375); Red Blood Count 4.18 M/mm3 (4.2-5.4); Red Cell Distribution Width 15.7 % (11.5-14.5)
[2021-11-29 10:56] LABS: Vitamin B12 > 1000.0 pg/mL (239-931)
[2021-11-29 11:20] LABS: Iron 59 ug/dL (37-170)
[2021-11-29 11:29] LABS: Percent Iron Saturation 14 % (20-50)
== END 2021-11-29 09:31 | disposition home or self-care (01) ==
PROVIDERS: PCP Internal Medicine; Visit Provider Internal Medicine
DX: D64.9 Anemia, unspecified (principal); Z98.84 Bariatric surgery status
CPT/HCPCS: 36415; 82607; 83540; 83550; 85027

== ENCOUNTER → 2022-02-21 00:07 | Outpatient (CLI) | payer OTHER, BC, SELFPAY ==
[2022-02-21 11:00] LABS: SARS-CoV-2 RNA PCR Negative
== END ==
DX: Z01.812 Encounter for preprocedural laboratory examination (principal); Z20.822 Contact with and (suspected) exposure to COVID-19
CPT/HCPCS: C9803; U0003; U0005

== ENCOUNTER 2022-04-01 07:10 | Outpatient (CLI) | payer OTHER, BC, SELFPAY ==
[2022-04-01 08:11] LABS: Iron 37 ug/dL (37-170)
[2022-04-01 08:16] LABS: Hematocrit 33.9 % (37.0-47.0); Hemoglobin 10.3 g/dL (12.0-15.0); Mean Corpuscular HGB Conc 30.4 g/dl (32-36); Mean Corpuscular Hemoglobin 25.1 pg (26-34); Mean Corpuscular Volume 82.7 fl (80-100); Mean Platelet Volume 10.9 fl (7.4-10.4); Platelet Count Result 281 k/mm3 (150-375); Red Cell Distribution Width 16.7 % (11.5-14.5); White Blood Count 5.4 K/mm3 (4.5-10.0)
[2022-04-01 08:21] LABS: Percent Iron Saturation 8 % (20-50)
== END 2022-04-01 07:11 | disposition home or self-care (01) ==
PROVIDERS: PCP Internal Medicine; Visit Provider Internal Medicine
DX: D64.9 Anemia, unspecified (principal); Z98.84 Bariatric surgery status
CPT/HCPCS: 36415; 82607; 83540; 83550; 85027

== ENCOUNTER 2022-04-15 13:58 | Outpatient (CLI) | payer OTHER, BC, SELFPAY ==
[2022-04-15 15:12] LABS: Ferritin 6.86 ng/mL (6.24-137)
== END 2022-04-15 13:59 | disposition home or self-care (01) ==
LOC: ANHLAB 14:00
PROVIDERS: PCP Internal Medicine; Visit Provider Nurse Practitioner Family
DX: D64.9 Anemia, unspecified (principal)
CPT/HCPCS: 36415; 82728

== ENCOUNTER 2022-04-21 00:31 | Day surgery (SDC) | payer OTHER, BC, SELFPAY ==
[2022-04-16 15:27] VITALS: BMI 34.3
[2022-04-21 07:36] VITALS: BP 127/84; PULSE 67; RESP 20; TEMP 36.3; O2SAT 100
--- NOTE | 2022-04-21 07:38 | SUR.PREOP ---
Patient states she had two pieces of chicken last evening for supper. States her stools are blue and liquid from the blue gatorade she drank. Dr Hand notified- no new orders. Patient and MD both agree to proceed.
[2022-04-21] MEDS: LACTATED RINGERS 1,000 ML 150 ML IV CONT (07:40)
--- NOTE | 2022-04-21 08:58 | WPDHPUPDATE1 ---
History and Physical Update Update Date/Time: 04/21/22 08:58 History and Physical has been reviewed, including an updated exam of the patient. There are NO changes in the patient's condition. Risks, benefits, and alternatives have been discussed and questions answered. Patient agrees to proceed with procedure.
--- NOTE | 2022-04-21 09:19 | SUR.OPER ---
EGD ended at 909. Colonoscopy started at 914.
[2022-04-21 09:25] VITALS: BP 120/73; PULSE 78; RESP 15; O2SAT 98
[2022-04-21 09:35] VITALS: BP 141/96; PULSE 79; RESP 20; O2SAT 100
[2022-04-21 09:45] VITALS: BP 165/84; PULSE 68; RESP 20; O2SAT 100
== END 2022-04-21 10:00 | disposition home or self-care (01) ==
PROVIDERS: PCP Internal Medicine; Visit Provider Internal Medicine Gastroenterology
PROC: 0DJ08ZZ Inspection of Upper Intestinal Tract, Via Natural or Artificial Opening Endoscopic (ICD-10-PCS; CPT 43235; principal; 2022-04-21 09:15)
DX: Z12.11 Encounter for screening for malignant neoplasm of colon (principal); K64.8 Other hemorrhoids; D50.0 Iron deficiency anemia secondary to blood loss (chronic); Z98.84 Bariatric surgery status; I10 Essential (primary) hypertension; E11.9 Type 2 diabetes mellitus without complications; G25.81 Restless legs syndrome
CPT/HCPCS: 45378; 43239; 88305; J2001; J2704; J7120

== ENCOUNTER 2022-05-15 13:13 | Emergency (ER) | payer OTHER, BC, SELFPAY ==
[2022-05-15 13:15] VITALS: BP 153/95; PULSE 95; RESP 17; O2SAT 100
--- NOTE | 2022-05-15 14:05 | ED.EYEPROB ---
HPI - Eye Problem General Chief complaint: Eye Problems <RAYO Dial Last Filed: 05/15/22 18:56> Stated complaint: left eye pain <RAYO Dial Last Filed: 05/15/22 18:56> Time Seen by Provider: 05/15/22 13:20 <RAYO Dial Last Filed: 05/15/22 18:56> Source: patient <RAYO Dial Last Filed: 05/15/22 18:56> Mode of arrival: ambulatory <RAYO Dial Last Filed: 05/15/22 18:56> Limitations: no limitations <RAYO Dial Last Filed: 05/15/22 18:56> History of Present Illness HPI Narrative: Patient is a 47 y/o female who presents to the ED with c/o L eye pain. 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. She states she was cleaning a room today when she believes a piece of dust or debris flew into her left eye. She tried to rub her eye to remove the debris and has since had burning pain to her left eye. Initially reported some blurry vision from the left eye, but by the time of my evaluation, now reporting more just burning pain. No other injuries. No R eye sx's. No fever, KERN, dizziness. She does not wear contacts. <RAYO Dial Last Filed: 05/15/22 18:56> Related Data Home medications: Home Medications Medication Instructions Recorded Confirmed multivitamin (Daily Multi-Vitamin 2 tablet PO DAILY 12/08/19 04/16/22 tablet) mecobalamin (vitamin B12) 5,000 5,000 mcg PO EVERY OTHER DAY 02/12/21 04/16/22 mcg disintegrating tablet oxycodone-acetaminophen 10 mg-325 1 tablet PO Q8H PRN Pain 04/07/22 04/16/22 mg tablet calcium carbonate 500 mg-vitamin 1 tablet PO BID 04/16/22 04/16/22 D3 10 mcg (400 unit) chewable tablet (Calcium 500 + D) <Aimee Doty PA-C - Last Filed: 05/15/22 18:56> Allergies/adverse reactions: Allergies Allergy/AdvReac Type Severity Reaction Status Date / Time No Known Allergies Allergy Verified 04/21/22 07:34 <Aimee Doty PA-C - Last Filed: 05/15/22 18:56> Review of Systems Review of Systems: CONSTITUTIONAL: Denies fever, chills, or sweats. EYES: Reports L eye pain/burning, mild blurry vision. SKIN: Denies rash or itching. NEUROLOGIC: Denies headache, dizziness. <Aimee Doty PA-C - Last Filed: 05/15/22 18:56> All systems reviewed & are unremarkable except as noted in HPI and below <Aimee Doty PA-C - Last Filed: 05/15/22 18:56> PMFSH Past Medical History Medical History: Medical History Abdominal pannus Anal fissure Anal pruritus Body mass index (bmi) 37.0-37.9, adult Chest wall pain Chronic fatigue Chronic right shoulder pain Degenerative joint disease of knee Diabetes Encounter for long-term (current) use of other medications Encounter for surgical aftercare following surgery on the digestive system Essential (primary) hypertension Hypersomnia Internal hemorrhoid, bleeding Left knee pain Medial meniscus tear Mixed restrictive and obstructive lung disease Overweight (11/30/16) Rectal bleeding Residual hemorrhoidal skin tag Restless legs syndrome Right foot pain Sarcoid Stress incontinence in female Symptomatic abdominal apron Tinea corporis Unspecified hemorrhoids Uterine fibroid Yeast infection of the skin <Aimee Doty PA-C - Last Filed: 05/15/22 18:56> Surgical History Surgical History: Surgical History H/O gastric sleeve (03/08/19) H/O hemorrhoidectomy History of 1992 1994 2007 History of dilation and curettage (04/23/11) History of endometrial ablation (05/07/11) History of tubal ligation (~2007) Status post panniculectomy <Aimee Doty PA-C - Last Filed: 05/15/22 18:56> Family History Family History: Family History Father Hy
[2022-05-15] MEDS: FLUORESCEIN SOD 1 MG/STRIP EACH EYE (14:08)
== END 2022-05-15 15:06 | disposition home or self-care (01) ==
PROVIDERS: Emergency Provider Emergency Medicine; PCP Internal Medicine
DX: S05.02XA Injury of conjunctiva and corneal abrasion without foreign body, left eye, initial encounter (principal); E11.9 Type 2 diabetes mellitus without complications; I10 Essential (primary) hypertension; J44.9 Chronic obstructive pulmonary disease, unspecified; E66.3 Overweight; Z68.34 Body mass index [BMI] 34.0-34.9, adult; G25.81 Restless legs syndrome; R53.82 Chronic fatigue, unspecified; M17.9 Osteoarthritis of knee, unspecified; Z98.84 Bariatric surgery status; Z77.22 Contact with and (suspected) exposure to environmental tobacco smoke (acute) (chronic); J98.4 Other disorders of lung; W22.8XXA Striking against or struck by other objects, initial encounter
CPT/HCPCS: 99283

== ENCOUNTER 2022-10-14 09:42 | Outpatient (CLI) | payer OTHER, BC, SELFPAY ==
[2022-10-14 10:48] LABS: Hematocrit 37.4 % (37.0-47.0); Hemoglobin 11.8 g/dL (12.0-15.0); Mean Corpuscular HGB Conc 31.6 g/dl (32-36); Mean Corpuscular Hemoglobin 24.6 pg (26-34); Mean Corpuscular Volume 78.1 fl (80-100); Mean Platelet Volume 11.4 fl (7.4-10.4); Platelet Count Result 297 k/mm3 (150-375); Red Blood Count 4.79 M/mm3 (4.2-5.4); Red Cell Distribution Width 16.8 % (11.5-14.5); White Blood Count 6.6 K/mm3 (4.5-10.0)
[2022-10-14 10:50] LABS: Hemoglobin A1C 5.5 % (<5.7)
[2022-10-14 10:52] LABS: Alanine Aminotransferase 21 U/L (6-35); Albumin Level 4.5 g/dL (3.5-5.1); Alkaline Phosphatase 73 U/L (38-126); Anion Gap 8 mmol/L (8-16); Aspartate Amino Transferase 25 U/L (14-36); Bilirubin,Total 0.6 mg/dL (0.2-1.3); Blood Urea Nitrogen 10 mg/dL (7-17); Calcium 9.2 mg/dL (8.4-10.2); Carbon Dioxide 26 mmol/L (22-30); Chloride 105 mmol/L (98-107); Cholesterol 184 mg/dL (0-200); Estimated Glomerular Filt Rate > 60; Glucose 86 mg/dL (65-110); HDL Direct 51 mg/dL; Sodium 139 mmol/L (137-145); Triglycerides 87 mg/dL (<150)
[2022-10-14 11:03] LABS: LDL Cholesterol Direct 109 mg/dL
[2022-10-18 23:40] LABS: Vitamin D 1,25 (OH)2 Total 23 pg/mL (18-72); Vitamin D2 1,25 (OH)2 <8 pg/mL; Vitamin D3 1,25 (OH)2 23 pg/mL
== END 2022-10-14 09:43 | disposition home or self-care (01) ==
LOC: ANHLAB 09:46
PROVIDERS: PCP Internal Medicine; Visit Provider Internal Medicine
DX: Z00.00 Encounter for general adult medical examination without abnormal findings (principal); E55.9 Vitamin D deficiency, unspecified; I10 Essential (primary) hypertension; E66.3 Overweight; E78.5 Hyperlipidemia, unspecified; D64.9 Anemia, unspecified
CPT/HCPCS: 36415; 80053; 80061; 82652; 83036; 84443; 85027

== ENCOUNTER 2023-02-04 15:47 | Outpatient (CLI) | payer BC, SELFPAY ==
[2023-02-04 16:58] LABS: Basophils Absolute Auto 0.1 K/mm3 (0.0-0.1); Basophils Percent Auto 0.7 % (0.2-1.2); Eosinophils Absolute Auto 0.2 K/mm3 (0-0.3); Eosinophils Percent Auto 2.4 % (0-4.4); Hematocrit 39.4 % (37.0-47.0); Hemoglobin 12.6 g/dL (12.0-15.0); Immature Granulocyte Absolute 0.01 K/mm3 (0.00-0.031); Immature Granulocyte Percent A 0.1 % (0-0.5); Lymphocytes Absolute Auto 2.26 K/mm3 (0.9-3.2); Lymphocytes Percent Auto 32.4 % (18.3-44.2); Mean Corpuscular Hemoglobin 27.6 pg (26-34); Mean Corpuscular Volume 86.2 fl (80-100); Mean Platelet Volume 11.1 fl (7.4-10.4); Monocytes Absolute Auto 0.6 K/mm3 (0.1-0.6); Monocytes Percent Auto 8.5 % (2.6-8.5); Neutrophils Absolute Auto 3.9 K/mm3 (1.3-6.7); Neutrophils Percent Auto 55.9 % (45.5-73.1); Platelet Count Result 287 k/mm3 (150-375); Red Blood Count 4.57 M/mm3 (4.2-5.4); Red Cell Distribution Width 15.5 % (11.5-14.5)
[2023-02-04 17:06] LABS: Alanine Aminotransferase 19 U/L (6-35); Albumin Level 4.1 g/dL (3.5-5.1); Alkaline Phosphatase 59 U/L (38-126); Anion Gap 8 mmol/L (8-16); Aspartate Amino Transferase 23 U/L (14-36); Bilirubin,Total 0.2 mg/dL (0.2-1.3); Blood Urea Nitrogen 11 mg/dL (7-17); Carbon Dioxide 27 mmol/L (22-30); Chloride 105 mmol/L (98-107); Estimated Glomerular Filt Rate > 60; Glucose 84 mg/dL (65-110); Potassium 4.2 mmol/L (3.4-5.0); Sodium 140 mmol/L (137-145)
== END 2023-02-04 15:48 | disposition home or self-care (01) ==
LOC: ANHLAB 15:48
PROVIDERS: PCP Family Medicine; Visit Provider Nurse Practitioner Family
DX: R10.9 Unspecified abdominal pain (principal)
CPT/HCPCS: 36415; 80053; 85025

== ENCOUNTER 2023-02-08 10:58 | Emergency (ER) | payer BC, SELFPAY ==
--- NOTE | ~2023-02-08 | CT_ITS ---
CT of the Abdomen and Pelvis: Indication: Abdominal pain Technique: 2.5 mm axial scans were obtained through the abdomen and pelvis following intravenous adm inistration of 100 cc of Omnipaque 350. Dose reduction technique was used on this scan by utilizing a utomated exposure control and iterative reconstruction technique. The dose-length product (DLP) was 5 32.13 mGy-cm. COMPARISON: 04/15/2020 Findings: Scans through the lung bases demonstrates stable right lower lobe peripheral nodule. The liver, spleen, pancreas, gallbladder, adrenals and kidneys are within normal limits. No evidence of aortic aneurysm. No lymphadenopathy. No bowel obstruction or bowel wall thickening. There is no evidence to suggest acute appendicitis. Images through the pelvis were performed. Urinary bladder unremarkable. No definite adnexal mass seen . No ascites. Impression: No acute abnormality. Stable right lower lobe pulmonary nodule. Reviewed, dictated and finalized at [facility]. Impression: No acute abnormality. Stable right lower lobe pulmonary nodule.
[2023-02-08 11:12] VITALS: BP 139/81; PULSE 80; RESP 16; TEMP 36.2; O2SAT 99
--- NOTE | 2023-02-08 11:42 | ED.ABDPAIN ---
HPI - Abdominal Pain General Chief Complaint: Abdominal Pain Stated Complaint: abdominal cramps Time Seen by Provider: 02/08/23 11:18 History of Present Illness HPI narrative: 47-year-old female with a history of hypertension, dyslipidemia, s/p gastric sleeve in 2020 and what sounds like an abdominoplasty reports for evaluation of generalized abdominal pain x1 week. 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 She reports her abdominal pain started after she started working at [employer] and is exacerbated when she lifts heavy object or pushes heavy boxes. She reports an episode of nausea yesterday while she was pushing a heavy box, denies emesis. Last bowel movement was yesterday and watery. States she has been eating and drinking fine. She also reports urinary incontinence x2 since she started working at [employer] a month ago that occurs that she lives heavy boxes. Denies dysuria or hematuria, fever, history of hernias. She has not taken anything for pain. Related Data Home Medications Medication Instructions Recorded Confirmed multivitamin (Daily Multi-Vitamin 2 tablet PO DAILY 12/08/19 10/12/22 tablet) mecobalamin (vitamin B12) 5,000 5,000 mcg PO EVERY OTHER DAY 02/12/21 10/12/22 mcg disintegrating tablet Allergies Allergy/AdvReac Type Severity Reaction Status Date / Time No Known Allergies Allergy Verified 02/08/23 11:27 Review of Systems Review of Systems: CONSTITUTIONAL: Denies fever, chills EYES: Denies visual changes, redness, or discharge. ENT: Denies rhinorrhea, congestion, sore throat, or otalgia. CARDIOVASCULAR: Denies chest pain, palpitations, or edema. RESPIRATORY: Denies cough or dyspnea. GASTROINTESTINAL: See HPI GENITOURINARY: Denies dysuria or hematuria. SKIN: Denies rash or itching. MUSCULOSKELETAL: Denies joint pain, or myalgia. NEUROLOGIC: Denies headache, numbness, dizziness, or weakness. PSYCHIATRIC: Denies anxiety or depression. [facility] Past Medical History Medical History Abdominal pannus Anal fissure Anal pruritus Body mass index (bmi) 37.0-37.9, adult Chest wall pain Chronic fatigue Chronic right shoulder pain Degenerative joint disease of knee Diabetes Encounter for long-term (current) use of other medications Encounter for surgical aftercare following surgery on the digestive system Essential (primary) hypertension Hypersomnia Internal hemorrhoid, bleeding Left knee pain Medial meniscus tear Mixed restrictive and obstructive lung disease Overweight (11/30/16) Rectal bleeding Residual hemorrhoidal skin tag Restless legs syndrome Right foot pain Sarcoid Stress incontinence in female Symptomatic abdominal apron Tinea corporis Unspecified hemorrhoids Uterine fibroid Yeast infection of the skin Surgical History Surgical History H/O gastric sleeve (03/08/19) H/O hemorrhoidectomy History of 1992 1993 2007 History of dilation and curettage (04/23/11) History of endometrial ablation (05/07/11) History of tubal ligation (~2007) Status post panniculectomy Family History Family History Father Hypertension Mother Hypertension ASD (atrial septal defect) COPD (chronic obstructive pulmonary disease) Sibling Patient's sister is in good health Patient's brother is in good health Seizure Other Lung cancer Heart disease Grandparent Hypertension paternal grandmother maternal grandfather Other Diabetes mellitus Family history of malignant neoplasm Social History Social History Smoking status: Never smoker Second hand tobacco smoke exposure: Yes Alcohol intake: current Alcohol use details: Special Occasions Substance use: never Substance use type: does
[2023-02-08] MEDS: ACETAMINOPHEN 500 MG TABLET 1000 MG PO (11:52)
[2023-02-08] MEDS: SODIUM CHLORIDE 0.9% IV 1,000 ML 999 ML IV CONT (11:53)
[2023-02-08] MEDS: MORPHINE SULFATE (*CRX) 4 MG/ML INJ IV PUSH (11:53)
[2023-02-08 11:59] LABS: Basophils Percent Auto 0.4 % (0.2-1.2); Eosinophils Absolute Auto 0.1 K/mm3 (0-0.3); Eosinophils Percent Auto 1.6 % (0-4.4); Hemoglobin 12.9 g/dL (12.0-15.0); Immature Granulocyte Absolute 0.01 K/mm3 (0.00-0.031); Immature Granulocyte Percent A 0.1 % (0-0.5); Lymphocytes Percent Auto 32.4 % (18.3-44.2); Mean Corpuscular HGB Conc 32.3 g/dl (32-36); Mean Corpuscular Hemoglobin 27.6 pg (26-34); Mean Corpuscular Volume 85.5 fl (80-100); Mean Platelet Volume 10.9 fl (7.4-10.4); Monocytes Absolute Auto 0.5 K/mm3 (0.1-0.6); Monocytes Percent Auto 7.1 % (2.6-8.5); Neutrophils Absolute Auto 4.1 K/mm3 (1.3-6.7); Neutrophils Percent Auto 58.4 % (45.5-73.1); Platelet Count Result 284 k/mm3 (150-375); Red Blood Count 4.68 M/mm3 (4.2-5.4); Red Cell Distribution Width 15.4 % (11.5-14.5); White Blood Count 7.1 K/mm3 (4.5-10.0)
[2023-02-08 12:08] LABS: Alanine Aminotransferase 25 U/L (6-35); Alkaline Phosphatase 57 U/L (38-126); Anion Gap 2 mmol/L (8-16); Aspartate Amino Transferase 25 U/L (14-36); Bilirubin,Total 0.4 mg/dL (0.2-1.3); Blood Urea Nitrogen 9 mg/dL (7-17); Calcium 8.9 mg/dL (8.4-10.2); Carbon Dioxide 26 mmol/L (22-30); Chloride 105 mmol/L (98-107); Estimated CRCL calculation 101 ml/min; Estimated Glomerular Filt Rate > 60; Glucose 90 mg/dL (65-110); Lipase 57 U/L (23-300); Potassium 4.1 mmol/L (3.4-5.0); Sodium 133 mmol/L (137-145)
[2023-02-08 12:09] LABS: Estimated CRCL calculation 101 ml/min; Estimated Glomerular Filt Rate > 60
[2023-02-08 12:49] LABS: Appearance Urine Clear (Clear); Bacteria Urine Rare /hpf; Bilirubin Urine Negative (Negative); Blood Urine Negative (Negative); Color Urine Dark Yellow (Yellow); Glucose Urine UA Negative (Negative); Ketones Urine Negative (Negative); Leukocyte Esterase Ur Trace LEU/UL (Negative); Mucus Urine Present /lpf; Nitrate Urine Negative (Negative); Non Pathogenic Casts 0-2; Protein Urine Trace mg/dL (Negative); RBC Urine 0-2 /hpf (0-2); Specific Grav Ur 1.025 (1.001-1.035); Squamous Epithelial Cell Urine Few /hpf (Few); WBC Urine 0-5 /hpf; pH Urine 5.5 (5.0-9.0)
[2023-02-08 12:58] LABS: Add Urine Microscopic? YES
[2023-02-08 13:35] VITALS: BP 138/86; PULSE 80; RESP 16; O2SAT 99
== END 2023-02-08 13:36 | disposition home or self-care (01) ==
PROVIDERS: Emergency Provider Physician Assistant; PCP Family Medicine
DX: R10.84 Generalized abdominal pain (principal); E11.9 Type 2 diabetes mellitus without complications; I10 Essential (primary) hypertension
CPT/HCPCS: 36415; 74177; 80053; 81001; 83690; 85025; 96361; 96374; 99284; A9270; J2270; J7030; Q9967

== ENCOUNTER 2023-02-20 17:20 | Emergency (ER) | payer BC, SELFPAY ==
[2023-02-20 17:21] VITALS: BP 145/92; PULSE 85; RESP 14; TEMP 36.5; O2SAT 95
[2023-02-20 17:55] LABS: Appearance Urine Turbid (Clear); Bacteria Urine Rare /hpf; Bilirubin Urine Negative (Negative); Blood Urine 2+ (Negative); Color Urine Yellow (Yellow); Glucose Urine UA Negative (Negative); Hyaline Casts Urine Present /lpf; Ketones Urine Negative (Negative); Leukocyte Esterase Ur 2+ LEU/UL (Negative); Nitrate Urine Negative (Negative); Protein Urine 1+ mg/dL (Negative); RBC Urine 21-50 /hpf (0-2); Squamous Epithelial Cell Urine Few /hpf (Few); Urobilinogen Urine 0.2 mg/dL (<2.0); WBC Urine >100 /hpf
[2023-02-20 17:56] LABS: Add Urine Microscopic? YES
--- NOTE | 2023-02-20 17:56 | ED.FEMALEGU ---
HPI - Female Genitourinary General Chief complaint: Urogenital-Female Stated complaint: burning and frequency with urination Time Seen by Provider: 02/20/23 17:38 History of Present Illness HPI Narrative: 47-year-old female presented the emergency department for evaluation of increased urinary symptoms. Patient states over the last few days she has had increased burning with urination and does have some right flank pain. Patient does describe some associated nausea without vomiting. Patient has no prior history of kidney stones. Related Data Home Medications Medication Instructions Recorded Confirmed multivitamin (Daily Multi-Vitamin 2 tablet PO DAILY 12/08/19 10/12/22 tablet) mecobalamin (vitamin B12) 5,000 5,000 mcg PO EVERY OTHER DAY 02/12/21 10/12/22 mcg disintegrating tablet Allergies Allergy/AdvReac Type Severity Reaction Status Date / Time No Known Allergies Allergy Verified 02/20/23 17:21 Review of Systems Review of Systems: All systems reviewed & are unremarkable except as noted in HPI and below PMFSH Past Medical History Medical History Abdominal pannus Anal fissure Anal pruritus Body mass index (bmi) 37.0-37.9, adult Chest wall pain Chronic fatigue Chronic right shoulder pain Degenerative joint disease of knee Diabetes Encounter for long-term (current) use of other medications Encounter for surgical aftercare following surgery on the digestive system Essential (primary) hypertension Hypersomnia Internal hemorrhoid, bleeding Left knee pain Medial meniscus tear Mixed restrictive and obstructive lung disease Overweight (11/30/16) Rectal bleeding Residual hemorrhoidal skin tag Restless legs syndrome Right foot pain Sarcoid Stress incontinence in female Symptomatic abdominal apron Tinea corporis Unspecified hemorrhoids Uterine fibroid Yeast infection of the skin Surgical History Surgical History H/O gastric sleeve (03/08/19) H/O hemorrhoidectomy History of 1992 1994 2007 History of dilation and curettage (04/23/11) History of endometrial ablation (05/07/11) History of tubal ligation (~2007) Status post panniculectomy Family History Family History Father Hypertension Mother Hypertension ASD (atrial septal defect) COPD (chronic obstructive pulmonary disease) Sibling Patient's sister is in good health Patient's brother is in good health Seizure Other Lung cancer Heart disease Grandparent Hypertension paternal grandmother maternal grandfather Other Diabetes mellitus Family history of malignant neoplasm Social History Social History Smoking status: Never smoker Second hand tobacco smoke exposure: Yes Alcohol intake: current Alcohol use details: Special Occasions Substance use: never Substance use type: does not use Lack of Transportation: YES Lack of Food: Often True Current Housing: I Do Not Have Housing Concerned About Future Housing: Decline to Answer Difficulty Paying Gas/Electric Bills: YES Difficulty Paying for Meds: YES Currently Unemployed: No Education: High School Diploma/GED Difficulty w/ Childcare or Family Care: No Living arrangements: with family 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 HEAD: normocephalic, atraumatic. EYES: PERRLA/EOMI, conjunctivae clear. NOSE: Normal no drainage NECK: Supple. No adenopathy, no masses. RESPIRATORY: Airway patent, respirations nonlabored. Clear to auscultation bilaterally, no rales, rhonchi, wheezing
[2023-02-20] MEDS: PHENAZOPYRIDINE HCL 100 MG TABLET 200 MG PO (18:13)
[2023-02-20] MEDS: CEPHALEXIN 500 MG CAPSULE PO (18:14)
== END 2023-02-20 18:17 | disposition home or self-care (01) ==
PROVIDERS: Emergency Medicine; Emergency Provider Emergency Medicine; PCP Family Medicine
DX: N39.0 Urinary tract infection, site not specified (principal); I10 Essential (primary) hypertension; E11.9 Type 2 diabetes mellitus without complications
CPT/HCPCS: 81001; 87086; 87088; 99283; A9270

== ENCOUNTER 2023-07-09 16:43 | Emergency (ER) | payer BC, SELFPAY ==
--- NOTE | ~2023-07-09 | XR_ITS ---
XR chest 2V 07/09/2023 17:02 Indication: Chest pain and shortness of breath Procedure: 2 view chest Comparison: 11/13/2021 Findings: Right upper lobe infiltrates may represent atelectasis/scarring or pneumonia. Heart size no rmal. No pleural effusion, edema or pneumothorax. Impression: 1: Right upper lobe infiltrates anteriorly, differential includes atelectasis/scarring and pneumonia. Reviewed, dictated and finalized at location B. ERER Impression: 1: Right upper lobe infiltrates anteriorly, differential includes atelectasis/s carring and pneumonia.
--- NOTE | 2023-07-09 16:44 | ECG_ITS ---
Measurements Intervals [place] Rate: 76 P: 42 GA: 137 QRS: 35 QRSD: 96 T: 19 QT: 365 QTc: 413 Interpretive Statements SINUS RHYTHM INDETERMINATE AXIS Electronically Signed On 07-11-2023 10:13:48 CLINICAL NURSING INSTRUCTOR by Attila Cummings M.D.
[2023-07-09 17:06] VITALS: BP 146/95; PULSE 86; RESP 16; TEMP 37.1; O2SAT 100
[2023-07-09 17:10] LABS: Basophils Percent Auto 0.7 % (0.2-1.2); Eosinophils Percent Auto 0.7 % (0-4.4); Hemoglobin 12.6 g/dL (12.0-15.0); Immature Granulocyte Absolute 0.01 K/mm3 (0.00-0.031); Immature Granulocyte Percent A 0.2 % (0-0.5); Lymphocytes Absolute Auto 1.58 K/mm3 (0.9-3.2); Lymphocytes Percent Auto 26.2 % (18.3-44.2); Mean Corpuscular HGB Conc 31.5 g/dl (32-36); Mean Corpuscular Hemoglobin 27.7 pg (26-34); Mean Corpuscular Volume 87.9 fl (80-100); Mean Platelet Volume 10.6 fl (7.4-10.4); Monocytes Absolute Auto 0.6 K/mm3 (0.1-0.6); Monocytes Percent Auto 9.8 % (2.6-8.5); Neutrophils Absolute Auto 3.8 K/mm3 (1.3-6.7); Neutrophils Percent Auto 62.4 % (45.5-73.1); Platelet Count Result 287 k/mm3 (150-375); Red Blood Count 4.55 M/mm3 (4.2-5.4); Red Cell Distribution Width 14.7 % (11.5-14.5)
[2023-07-09 17:20] LABS: INR 0.9
[2023-07-09 17:21] LABS: Partial Thromboplastin Time 30.4 SECONDS (22.3-36.8)
[2023-07-09 17:22] LABS: Alanine Aminotransferase 18 U/L (6-35); Albumin Level 3.9 g/dL (3.5-5.1); Alkaline Phosphatase 67 U/L (38-126); Anion Gap 5 mmol/L (8-16); Aspartate Amino Transferase 24 U/L (14-36); Bilirubin,Total 0.3 mg/dL (0.2-1.3); Blood Urea Nitrogen 11 mg/dL (7-17); Calcium 8.7 mg/dL (8.4-10.2); Carbon Dioxide 27 mmol/L (22-30); Chloride 106 mmol/L (98-107); Estimated CRCL calculation 85 ml/min; Estimated Glomerular Filt Rate > 60; Glucose 86 mg/dL (65-110); Lipase 88 U/L (23-300); Potassium 4.1 mmol/L (3.4-5.0); Sodium 138 mmol/L (137-145)
[2023-07-09 17:33] LABS: Troponin I < 0.012 ng/mL (0.000-0.034)
--- NOTE | 2023-07-09 19:30 | ECG_ITS ---
Measurements Intervals [place] Rate: 70 P: 36 AR: 142 QRS: 61 QRSD: 98 T: 13 QT: 374 QTc: 405 Interpretive Statements SINUS RHYTHM COMPARED TO ECG 07/09/2023 16:50:57 NO SIGNIFICANT CHANGES Electronically Signed On 07-11-2023 10:15:18 HEALTH POLICY NURSE by Attila Cummings M.D.
[2023-07-09 19:41] VITALS: BP 158/91; PULSE 81; PULSE 84; RESP 12; TEMP 36.6; O2SAT 100
[2023-07-09 19:42] VITALS: O2SAT 100
[2023-07-09 19:55] LABS: Troponin I < 0.012 ng/mL (0.000-0.034)
[2023-07-09 20:02] VITALS: O2SAT 100
[2023-07-09 20:08] LABS: Influenza A QL RT-PCR Negative (Negative); Influenza B QL RT-PCR Negative (Negative); RSV RNA, RT-PCR Negative (Negative); SARS-CoV-2 RNA PCR Positive (Negative)
[2023-07-09 20:19] VITALS: O2SAT 100
[2023-07-09] MEDS: methocarbamoL 750 MG TABLET 1500 MG PO (20:23)
[2023-07-09] MEDS: ACETAMINOPHEN 500 MG TABLET 1000 MG PO (20:24)
--- NOTE | 2023-07-09 20:30 | ED.GENADULT ---
HPI - General Adult General Chief complaint: Chest Pain Stated complaint: cp Time Seen by Provider: 07/09/23 19:07 History of Present Illness HPI narrative: This is a 48-year-old female presenting with 1 day of congestion, weakness, body aches, and chest pain associated with cough patient denies fevers chills nausea vomiting diarrhea. She is concerned because she had a possible gas exposure yesterday while moving out brother's apartment. She says she was in there briefly but several deep breaths before she called the fire department where department. Related Data Home Medications Medication Instructions Recorded Confirmed multivitamin (Daily Multi-Vitamin 2 tablet PO DAILY 12/08/19 10/12/22 tablet) mecobalamin (vitamin B12) 5,000 5,000 mcg PO EVERY OTHER DAY 02/12/21 10/12/22 mcg disintegrating tablet Allergies Allergy/AdvReac Type Severity Reaction Status Date / Time No Known Allergies Allergy Verified 04/22/23 08:58 PMFSH Past Medical History Medical History Abdominal pannus Anal fissure Anal pruritus Body mass index (bmi) 37.0-37.9, adult Chest wall pain Chronic fatigue Chronic right shoulder pain Degenerative joint disease of knee Diabetes Encounter for long-term (current) use of other medications Encounter for surgical aftercare following surgery on the digestive system Essential (primary) hypertension Hypersomnia Internal hemorrhoid, bleeding Left knee pain Medial meniscus tear Mixed restrictive and obstructive lung disease Overweight (11/30/16) Rectal bleeding Residual hemorrhoidal skin tag Restless legs syndrome Right foot pain Sarcoid Stress incontinence in female Symptomatic abdominal apron Tinea corporis Unspecified hemorrhoids Uterine fibroid Vaginitis Yeast infection of the skin Surgical History Surgical History H/O gastric sleeve (03/08/19) H/O hemorrhoidectomy History of 1992 1994 2007 History of dilation and curettage (04/23/11) History of endometrial ablation (05/07/11) History of tubal ligation (~2007) Status post panniculectomy Family History Family History Father Hypertension Mother Hypertension ASD (atrial septal defect) COPD (chronic obstructive pulmonary disease) Sibling Patient's sister is in good health Patient's brother is in good health Seizure Other Lung cancer Heart disease Grandparent Hypertension paternal grandmother maternal grandfather Other Diabetes mellitus Family history of malignant neoplasm Social History Social History Smoking status: Never smoker Second hand tobacco smoke exposure: Yes Alcohol intake: current Alcohol use details: Special Occasions Substance use: never Substance use type: does not use Lack of Transportation: YES Lack of Food: Often True Current Housing: I Do Not Have Housing Concerned About Future Housing: Decline to Answer Difficulty Paying Gas/Electric Bills: YES Difficulty Paying for Meds: YES Currently Unemployed: No Education: High School Diploma/GED Difficulty w/ Childcare or Family Care: No Living arrangements: with family 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 Head: atraumatic. EYES: EOMI, NOSE: Atraumatic NECK: Trachea midline RESPIRATORY: No increased rate of breathing, clear to auscultation CARDIOVASCULAR: RRR, no peripheral edema ABDOMINAL: Non-distended soft nontender MUSCULOSKELETAl: No obvious deformities NEURO: Alert. Moving 4/4 extremities SKIN:: Warm, dry. Normal color PSYCHIATRIC: Normal affect Course Vital Si
[2023-07-09 20:33] LABS: Fractional Inspired Oxygen 80 %; HCO3 VBG 27.4 mEq/l (24.0-30.0); PCO2 VBG 40.2 mmHg (42.0-48.0)
[2023-07-09 20:40] LABS: Device NON-REBREATHER MASK; PO2 VBG < 27.0 mmHg (35.0-45.0); pH VBG 7.451 (7.300-7.400)
[2023-07-09 21:07] VITALS: BP 149/92; PULSE 79; RESP 17; TEMP 36.6; O2SAT 100
== END 2023-07-09 21:08 | disposition home or self-care (01) ==
PROVIDERS: Student in an Organized Health Care Education/Training Program; Emergency Provider Emergency Medicine; PCP Family Medicine
DX: U07.1 COVID-19 (principal); J44.9 Chronic obstructive pulmonary disease, unspecified; I10 Essential (primary) hypertension; G25.81 Restless legs syndrome; E66.3 Overweight; Z68.32 Body mass index [BMI] 32.0-32.9, adult; M17.9 Osteoarthritis of knee, unspecified; Z98.84 Bariatric surgery status; R91.8 Other nonspecific abnormal finding of lung field
CPT/HCPCS: 36415; 71046; 80053; 82803; 83690; 84484; 85025; 85610; 85730; 87637; 93005; 99284; A9270

== ENCOUNTER 2023-08-19 19:02 | Emergency (ER) | payer BC, SELFPAY ==
--- NOTE | ~2023-08-19 | XR_ITS ---
EXAMINATION: XR hip RT 2V w AP pelvis INDICATION: Right hip and groin pain TECHNIQUE: AP view the pelvis and two views of the right hip are obtained. COMPARISON: None available FINDINGS: There is mild osteoarthritis of the hips. Bone alignment is normal. There is no fracture. T here are phleboliths of the pelvis. IMPRESSION: 1. No acute osseous abnormality. Reviewed, dictated and finalized at location F. R ASSEMBLER
[2023-08-19 19:21] VITALS: BP 199/86; PULSE 77; RESP 16; TEMP 36.5; O2SAT 100
--- NOTE | 2023-08-19 22:56 | ED.EXTPRO ---
HPI - Extremity Problem General Chief complaint: Extremity Problem,Nontraumatic Stated complaint: r inner thigh pain x 1 week Time Seen by Provider: 08/19/23 22:33 History of Present Illness HPI Narrative: 48-year-old female with a history of hypertension, dyslipidemia, history of gastric sleeve surgery reports for evaluation for right groin pain x2 weeks is progressively worsened. Patient states she called her PCP who has not called her back, therefore came to the ED for further evaluation. She denies injury trauma to the area but states the pain is located in her proximal medial right thigh, and her groin. She states the pain is significantly worse with certain movements. She denies back pain, radiating pain, lower extremity edema or history of VTE. Denies overlying skin changes or rashes. Denies injury or trauma to the area. She reports taking Tylenol ibuprofen without improvement. Related Data Home Medications Medication Instructions Recorded Confirmed multivitamin (Daily Multi-Vitamin 2 tablet PO DAILY 12/08/19 10/12/22 tablet) mecobalamin (vitamin B12) 5,000 5,000 mcg PO EVERY OTHER DAY 02/12/21 10/12/22 mcg disintegrating tablet Allergies Allergy/AdvReac Type Severity Reaction Status Date / Time No Known Allergies Allergy Verified 08/19/23 21:42 Review of Systems Review of Systems: CONSTITUTIONAL: Denies fever, chills, or sweats. EYES: Denies visual changes, redness, or discharge. ENT: Denies rhinorrhea, congestion, sore throat, or otalgia. CARDIOVASCULAR: Denies chest pain, palpitations, or edema. RESPIRATORY: Denies cough or dyspnea. GASTROINTESTINAL: Denies abdominal pain, nausea, vomiting, or diarrhea. GENITOURINARY: Denies dysuria or hematuria. SKIN: Denies rash or itching. MUSCULOSKELETAL: See HPI NEUROLOGIC: Denies headache, numbness, or weakness. PSYCHIATRIC: Denies anxiety or depression. [facility] Past Medical History Medical History Abdominal pannus Anal fissure Anal pruritus Body mass index (bmi) 37.0-37.9, adult Chest wall pain Chronic fatigue Chronic right shoulder pain Degenerative joint disease of knee Diabetes Encounter for long-term (current) use of other medications Encounter for surgical aftercare following surgery on the digestive system Essential (primary) hypertension Hypersomnia Internal hemorrhoid, bleeding Left knee pain Medial meniscus tear Mixed restrictive and obstructive lung disease Overweight (11/30/16) Rectal bleeding Residual hemorrhoidal skin tag Restless legs syndrome Right foot pain Sarcoid Stress incontinence in female Symptomatic abdominal apron Tinea corporis Unspecified hemorrhoids Uterine fibroid Vaginitis Yeast infection of the skin Surgical History Surgical History H/O gastric sleeve (03/08/19) H/O hemorrhoidectomy History of 1992 1993 2007 History of dilation and curettage (04/23/11) History of endometrial ablation (05/07/11) History of tubal ligation (~2007) Status post panniculectomy Family History Family History Father Hypertension Mother Hypertension ASD (atrial septal defect) COPD (chronic obstructive pulmonary disease) Sibling Patient's sister is in good health Patient's brother is in good health Seizure Other Lung cancer Heart disease Grandparent Hypertension paternal grandmother maternal grandfather Other Diabetes mellitus Family history of malignant neoplasm Social History Social History Smoking status: Never smoker Second hand tobacco smoke exposure: Yes Alcohol intake: current Alcohol use details: Special Occasions Substance use: never Substance use type: does not use Lack of Transportation: YES Lack of Food: Often True Current H
[2023-08-19] MEDS: CYCLOBENZAPRINE HCL 10 MG TABLET PO (23:15)
[2023-08-19 23:31] LABS: Basophils Absolute Auto 0.1 K/mm3 (0.0-0.1); Basophils Percent Auto 0.7 % (0.2-1.2); Eosinophils Absolute Auto 0.1 K/mm3 (0-0.3); Eosinophils Percent Auto 1.6 % (0-4.4); Hemoglobin 11.9 g/dL (12.0-15.0); Immature Granulocyte Absolute 0.01 K/mm3 (0.00-0.031); Immature Granulocyte Percent A 0.1 % (0-0.5); Lymphocytes Absolute Auto 2.44 K/mm3 (0.9-3.2); Lymphocytes Percent Auto 35.3 % (18.3-44.2); Mean Corpuscular HGB Conc 31.3 g/dl (32-36); Mean Corpuscular Hemoglobin 27.6 pg (26-34); Mean Corpuscular Volume 88.2 fl (80-100); Mean Platelet Volume 10.6 fl (7.4-10.4); Monocytes Absolute Auto 0.6 K/mm3 (0.1-0.6); Monocytes Percent Auto 8.5 % (2.6-8.5); Neutrophils Absolute Auto 3.7 K/mm3 (1.3-6.7); Neutrophils Percent Auto 53.8 % (45.5-73.1); Platelet Count Result 284 k/mm3 (150-375); Red Blood Count 4.31 M/mm3 (4.2-5.4); Red Cell Distribution Width 14.6 % (11.5-14.5); White Blood Count 6.9 K/mm3 (4.5-10.0)
[2023-08-19 23:41] LABS: Prothrombin Time 13.1 Seconds (11.1-14.7)
[2023-08-19 23:43] LABS: Alanine Aminotransferase 19 U/L (6-35); Albumin Level 4.1 g/dL (3.5-5.1); Alkaline Phosphatase 67 U/L (38-126); Anion Gap 5 mmol/L (8-16); Aspartate Amino Transferase 23 U/L (14-36); Bilirubin,Total 0.3 mg/dL (0.2-1.3); Blood Urea Nitrogen 12 mg/dL (7-17); Calcium 8.9 mg/dL (8.4-10.2); Carbon Dioxide 28 mmol/L (22-30); Chloride 105 mmol/L (98-107); Estimated CRCL calculation 85 ml/min; Estimated Glomerular Filt Rate > 60; Glucose 89 mg/dL (65-110); Sodium 138 mmol/L (137-145)
[2023-08-19 23:48] LABS: D Dimer 0.39 ug/mL (<0.48)
[2023-08-20 00:26] VITALS: BP 174/83; PULSE 74; RESP 16; O2SAT 99
== END 2023-08-20 00:27 | disposition home or self-care (01) ==
PROVIDERS: Emergency Provider Physician Assistant; PCP Family Medicine
DX: M16.11 Unilateral primary osteoarthritis, right hip (principal); M76.891 Other specified enthesopathies of right lower limb, excluding foot; I10 Essential (primary) hypertension; J44.9 Chronic obstructive pulmonary disease, unspecified; D86.9 Sarcoidosis, unspecified; E78.5 Hyperlipidemia, unspecified; E66.3 Overweight; Z68.31 Body mass index [BMI] 31.0-31.9, adult; N39.3 Stress incontinence (female) (male); G25.81 Restless legs syndrome; M17.9 Osteoarthritis of knee, unspecified; Z98.84 Bariatric surgery status; Z79.85 Long-term (current) use of injectable non-insulin antidiabetic drugs
CPT/HCPCS: 36415; 73502; 80053; 85025; 85380; 85610; 85730; 96372; 99283; A9270; J1100

== ENCOUNTER 2023-09-16 18:12 | Emergency (ER) | payer BC, SELFPAY ==
[2023-09-16] VITALS (17 sets, daily range): BP systolic 106–144; BP diastolic 63–114; PULSE 67–88; RESP 13–28; TEMP 36.2; O2SAT 96–100
--- NOTE | ~2023-09-16 | XR_ITS ---
EXAMINATION: XR chest 1V DATE: 09/16/2023 19:13 INDICATION: Altered mental status TECHNIQUE: frontal view of the chest was obtained. COMPARISON: Chest radiograph dated 07/09/2023 FINDINGS: Perihilar mild bronchial wall thickening. No focal airspace opacities, pleural effusion or pneumothor ax. The cardiomediastinal silhouette is normal. Mild thoracic spondylosis. IMPRESSION: 1. Parahilar mild bronchial wall thickening which could be seen with bronchitis, asthma/reactive airw ay disease or mild pulmonary edema. Reviewed, dictated and finalized at location A. RVISOR BROADLOOM IMPRESSION: 1. Parahilar mild bronchial wall thickening which could be seen with bronchitis , asthma/reactive airway disease or mild pulmonary edema.
--- NOTE | ~2023-09-16 | CT_ITS ---
EXAMINATION: CT chest abdomen pelvis w con DATE: 09/16/2023 20:35 INDICATION: Chest and abdominal pain TECHNIQUE: Computed tomography (CT) of the chest, abdomen, and pelvis was performed with 100 mL Omnip aque-350 intravenous contrast. Automated exposure control and iterative reconstruction technique were employed. The dose-length product was 1112.80 mGy-cm. COMPARISON: Chest CT dated 06/07/[address] abdomen and pelvis dated 02/08/2023 FINDINGS: CHEST CT: Again seen are numerous scattered tiny calcified and noncalcified nodules consistent with old granulo matous disease. Also consistent with old granulomatous disease is a large irregular 11 mm nodule in t he anterobasilar segment of the right lower lobe with multiple tiny satellite nodules. Discoid atelec tasis in the intersegment of the right upper lobe. There is mild perihilar bronchial wall thickening. 1.2 cm some solid nodule anteriorly at the apical segment of the right upper lobe and less well-defi liana small groundglass opacities more posteriorly the apical segment which are new since the prior rolly dy. No smooth septal line thickening to suggest pulmonary edema. Heart size is normal. No pericardial effusion. Thoracic aorta is normal in caliber with no dissection. There is a 4.6 x 2.7 x 3.4 cm mass at the right hilum which contains a few small calcifications. The right upper lobar pulmonary artery extends along the posterior margin of the mass and is severely narrowed. Bones are unremarkable. ABDOMEN/PELVIS CT: Postoperative change of likely sleeve gastrectomy with suture line along the greater curvature of the stomach. Focal hepatic steatosis at the ligamentum teres. Gallbladder, spleen, pancreas, bilateral a drenal glands and kidneys are normal. The bladder and right adnexa are normal. 1.6 cm peripherally en hancing likely corpus luteum cyst at the left adnexa. Small amount of low-attenuation fluid in the en dometrial canal. Minimal amount of likely physiologic free fluid in the cul-de-sac. Bowels including the appendix are normal. Bone island at likely degenerative mild subarticular cystic change at the ri t acetabulum. IMPRESSION: 1. 4.6 x 2.7 x 3.4 cm right hilar mass which abuts and appears to severely narrow the right upper lob e are pulmonary artery. This concerning for malignancy although differential would include less likel y fibrosing mediastinitis. The mass abuts the bronchus to the apical and anterior segments of the rig ht upper lobe and with recommend ultrasound-guided endobronchial biopsy. 2. New small groundglass opacity right upper lobe which could be infectious/inflammatory or malignant in etiology. 3. Multiple small bilateral pulmonary nodules as well as a larger 12 x 9 mm nodules in the right lowe r lobe which are unchanged since 2020 most likely related to old granulomatous disease. 4. No acute intra-abdominal/pelvic process. Reviewed, dictated and finalized at location A. TRUCTION SUPERINTENDENT IMPRESSION: 1. 4.6 x 2.7 x 3.4 cm right hilar mass which abuts and appears to severely narr ow the right upper lobe are pulmonary artery. This concerning for malignancy al though differential would include less likely fibrosing mediastinitis. The mass abuts the bronchus to the apical and anterior segments of the right upper lobe and with recommend ultrasound-guided endobronchial biopsy. 2. New small groundglass opacity right upper lobe which could be infectious/inf lammatory or malignant in etiology. 3. Multiple small bilateral pulmonary nodules as well as a larger 12 x 9 mm nod ules in the right lower lobe which are unchanged since 2020 most likely related to old granulomatous disease. 4. No acute intra-abdominal/pelvic process.
--- NOTE | ~2023-09-16 | CT_ITS ---
EXAMINATION: CT brain wo con DATE: 09/16/2023 19:08 INDICATION: Altered mental status TECHNIQUE: Computed tomography (CT) of the head was performed without intravenous contrast. Sagittal and coronal reconstructions were performed. The mA was adjusted according to patient size. Iterative reconstruction technique was employed. The dose-length product was 605.33 mGy-cm. COMPARISON: head CT dated 12/22/2014 FINDINGS: No acute intracranial hemorrhage, acute infarction or abnormal extra axial fluid collection. Ventricl es are normal and symmetric. No mass/mass effect. Mild mucosal thickening the paranasal sinuses. The orbits, paranasal sinuses and mastoid air cells are normal. IMPRESSION: 1. Normal brain. Reviewed, dictated and finalized at location A. HERMAL POWERPLANT MECHANIC IMPRESSION: 1. Normal brain.
--- NOTE | 2023-09-16 18:21 | ECG_ITS ---
Measurements Intervals [place] Rate: 72 P: 25 MS: 121 QRS: 71 QRSD: 101 T: 4 QT: 391 QTc: 429 Interpretive Statements SINUS RHYTHM NONSPECIFIC T-WAVE ABNORMALITY ABNORMAL ECG COMPARED TO ECG 07/09/2023 19:30:40 T-WAVE ABNORMALITY NOW PRESENT Electronically Signed On 09-17-2023 15:04:16 DIRECTOR OF IN SERVICE EDUCATION by Desean Mauricio M.D.
--- NOTE | 2023-09-16 18:22 | ED.AMS ---
HPI - Altered Mental Status General Chief Complaint: Altered Mental Status Stated Complaint: AMS Time Seen by Provider: 09/16/23 18:17 History of Present Illness HPI narrative: Patient is a 48-year-old female who presents to the emergency department this afternoon due to altered mental status. Family members called EMS due to patient acting unusual. The EMS arrived, patient was found on the not very responsive to sternal rub. Vital signs were stable. EMS reports that patient got home and started chugging a bottle of hard alcohol which is very unlike her. In the emergency department, patient was initially unresponsive, however, she did wake up to sternal rub and wind of the tongue depressor was used to check for gag reflex. The remainder of history of present illness and review of systems is limited secondary to patient's current altered mental status. Related Data Home Medications Medication Instructions Recorded Confirmed multivitamin (Daily Multi-Vitamin 2 tablet PO DAILY 12/08/19 09/08/23 tablet) mecobalamin (vitamin B12) 5,000 5,000 mcg PO EVERY OTHER DAY 02/12/21 09/08/23 mcg disintegrating tablet Allergies Allergy/AdvReac Type Severity Reaction Status Date / Time No Known Allergies Allergy Verified 09/08/23 14:19 Review of Systems Review of Systems: Unable to obtain a full review of systems secondary to patient's current altered mental status PMFSH Past Medical History Medical History Abdominal pannus Anal fissure Anal pruritus Body mass index (bmi) 37.0-37.9, adult Chest wall pain Chronic fatigue Chronic right shoulder pain Degenerative joint disease of knee Diabetes Encounter for long-term (current) use of other medications Encounter for surgical aftercare following surgery on the digestive system Essential (primary) hypertension Hypersomnia Internal hemorrhoid, bleeding Left knee pain Medial meniscus tear Mixed restrictive and obstructive lung disease Overweight (11/30/16) Rectal bleeding Residual hemorrhoidal skin tag Restless legs syndrome Right foot pain Sarcoid Stress incontinence in female Symptomatic abdominal apron Tinea corporis Unspecified hemorrhoids Uterine fibroid Vaginitis Yeast infection of the skin Surgical History Surgical History H/O gastric sleeve (03/08/19) H/O hemorrhoidectomy History of 1991 1993 2007 History of dilation and curettage (04/23/11) History of endometrial ablation (05/07/11) History of tubal ligation (~2007) Status post panniculectomy Family History Family History Father Hypertension Mother Hypertension ASD (atrial septal defect) COPD (chronic obstructive pulmonary disease) Sibling Patient's sister is in good health Patient's brother is in good health Seizure Other Lung cancer Heart disease Grandparent Hypertension paternal grandmother maternal grandfather Other Diabetes mellitus Family history of malignant neoplasm Social History Social History Smoking status: Never smoker Second hand tobacco smoke exposure: Yes Alcohol intake: current Alcohol use details: Special Occasions Substance use: never Substance use type: does not use Lack of Transportation: YES Lack of Food: Often True Current Housing: I Do Not Have Housing Concerned About Future Housing: Decline to Answer Difficulty Paying Gas/Electric Bills: YES Difficulty Paying for Meds: YES Currently Unemployed: No Education: High School Diploma/GED Difficulty w/ Childcare or Family Care: No Living arrangements: with family 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
[2023-09-16] MEDS: SODIUM CHLORIDE 0.9% IV 1,000 ML 999 ML IV CONT ×2 (18:40→20:47)
[2023-09-16 18:45] LABS: Basophils Percent Auto 0.6 % (0.2-1.2); Eosinophils Absolute Auto 0.1 K/mm3 (0-0.3); Eosinophils Percent Auto 1.4 % (0-4.4); Hematocrit 43.1 % (37.0-47.0); Hemoglobin 13.8 g/dL (12.0-15.0); Immature Granulocyte Absolute 0.01 K/mm3 (0.00-0.031); Immature Granulocyte Percent A 0.2 % (0-0.5); Lymphocytes Absolute Auto 2.39 K/mm3 (0.9-3.2); Lymphocytes Percent Auto 38.3 % (18.3-44.2); Mean Corpuscular Hemoglobin 27.4 pg (26-34); Mean Corpuscular Volume 85.5 fl (80-100); Mean Platelet Volume 10.7 fl (7.4-10.4); Monocytes Absolute Auto 0.4 K/mm3 (0.1-0.6); Monocytes Percent Auto 7.1 % (2.6-8.5); Neutrophils Absolute Auto 3.3 K/mm3 (1.3-6.7); Neutrophils Percent Auto 52.4 % (45.5-73.1); Platelet Count Result 259 k/mm3 (150-375); Red Blood Count 5.04 M/mm3 (4.2-5.4); Red Cell Distribution Width 14.7 % (11.5-14.5); White Blood Count 6.2 K/mm3 (4.5-10.0)
[2023-09-16 18:46] LABS: Appearance Urine Clear (Clear); Bilirubin Urine Negative (Negative); Blood Urine Negative (Negative); Color Urine Yellow (Yellow); Glucose Urine UA Negative (Negative); Ketones Urine Negative (Negative); Leukocyte Esterase Ur Negative LEU/UL (Negative); Nitrate Urine Negative (Negative); Protein Urine Negative (Negative); Specific Grav Ur 1.008 (1.001-1.035); Urobilinogen Urine 0.2 mg/dL (<2.0); pH Urine 5.5 (5.0-9.0)
[2023-09-16 18:49] LABS: Add Urine Microscopic? NO
[2023-09-16 18:52] LABS: Lactic Acid Reflex 2.5 mmol/L (0.7-2.0)
[2023-09-16 18:53] LABS: Alanine Aminotransferase 22 U/L (6-35); Albumin Level 3.6 g/dL (3.5-5.1); Alkaline Phosphatase 62 U/L (38-126); Anion Gap 8 mmol/L (8-16); Aspartate Amino Transferase 38 U/L (14-36); Bilirubin,Total 0.2 mg/dL (0.2-1.3); Blood Urea Nitrogen 10 mg/dL (7-17); Calcium 8.6 mg/dL (8.4-10.2); Carbon Dioxide 23 mmol/L (22-30); Chloride 109 mmol/L (98-107); Creatine Kinase 117 U/L (30-135); Estimated Glomerular Filt Rate > 60; Glucose 92 mg/dL (65-110); Potassium 3.7 mmol/L (3.4-5.0); SPREG INTERNAL CONTROL Positive; Serum Qual hCG Negative; Sodium 140 mmol/L (137-145)
[2023-09-16 18:56] LABS: Acetaminophen < 10 ug/mL (10-30); Ethanol 112 mg/dL (<10); Salicylate < 1.0 mg/dL (2-20)
[2023-09-16 19:09] LABS: Benzodiazepines Screen Urine Negative (Negative)
[2023-09-16 19:15] LABS: Ammonia < 9 umol/L (9-30)
[2023-09-16 19:21] LABS: Influenza A QL RT-PCR Negative (Negative); Influenza B QL RT-PCR Negative (Negative); RSV RNA, RT-PCR Negative (Negative); SARS-CoV-2 RNA PCR Negative (Negative)
[2023-09-16 19:42] LABS: Amphetamine Screen Urine Negative (Negative); Cannabinoid Screen Urine Negative (Negative); Cocaine Screen Urine Negative (Negative); Methadone Screen Urine Negative (Negative); Opiate Screen Urine Negative (Negative); Phencyclidine Screen Urine Negative (Negative)
[2023-09-16 20:05] LABS: Barbiturate Screen Urine Negative (Negative)
[2023-09-16 20:06] LABS: Alveolar/Arterial O2 Gradient 37.9 mmHg; Base Excess ABG -3.2 mEq/l (+/-2.0); Carboxyhemoglobin 0.8 % THb (0-2.0); Fractional Inspired Oxygen 21 %; Methemoglobin ABG 0.3 %THb (0-1.5); Oxygen Content ABG 18.1 %vol (16.0-22.0); Oxygen Saturation ABG 96.7 % (95.0-100.0); Oxyhemoglobin 94.4 % THb (90.0-100.0); PCO2 ABG 26.6 mmHg (35.0-45.0); PO2 FiO2 Ratio Arterial Blood 3.81 %; Reduced Hemoglobin 4.5 %THb (0-5.0); Total Hemoglobin 13.6 g/dL (12.0-18.0); pH ABG 7.471 (7.350-7.450)
[2023-09-16 20:07] LABS: Modified Allen's Test Pass; Site Drawn RIGHT RADIAL
[2023-09-16] MEDS: ACETAMINOPHEN 325 MG TABLET 650 MG PO (21:35)
[2023-09-16 21:37] LABS: Reflex Lactic Acid Yes or No Add Lactic
[2023-09-16 22:19] LABS: Lactic Acid 2.6 mmol/L (0.7-2.0)
== END 2023-09-16 23:07 | disposition home or self-care (01) ==
PROVIDERS: Emergency Provider Emergency Medicine; PCP Family Medicine
DX: R41.82 Altered mental status, unspecified (principal); F10.129 Alcohol abuse with intoxication, unspecified; Y90.5 Blood alcohol level of 100-119 mg/100 ml; E87.20 Acidosis, unspecified; R91.8 Other nonspecific abnormal finding of lung field; Z20.822 Contact with and (suspected) exposure to COVID-19; E11.9 Type 2 diabetes mellitus without complications; I10 Essential (primary) hypertension; J44.9 Chronic obstructive pulmonary disease, unspecified; E66.3 Overweight; G25.81 Restless legs syndrome; N39.3 Stress incontinence (female) (male); M17.9 Osteoarthritis of knee, unspecified; Z98.84 Bariatric surgery status; R94.31 Abnormal electrocardiogram [ECG] [EKG]
CPT/HCPCS: 36415; 36600; 70450; 71045; 71260; 74177; 80053; 80307; 81003; 82140; 82375; 82550; 82805; 83050; 83605; 84703; 85025; 87637; 93005; 96360; 96361; 99284; A9270; J7030; Q9967

== ENCOUNTER 2023-11-11 13:50 | Outpatient (CLI) | payer BC, SELFPAY | END 2023-11-11 13:51 | disposition home or self-care (01) | LOC: ANHLAB 13:54 | PROVIDERS: PCP Family Medicine; Visit Provider Family Medicine | DX: E66.3 Overweight (principal) | CPT/HCPCS: 36415; 84443 ==

== ENCOUNTER 2023-11-16 15:41 | Outpatient (CLI) | payer BC, SELFPAY ==
--- NOTE | ~2023-11-16 | CT_ITS ---
EXAMINATION:CT diagnostic chest w con DATE: 11/16/2023 16:41 INDICATION: Other nonspecified abnormal findings in lung field. TECHNIQUE: Computed tomography (CT) of the chest was performed with 75 mL Omnipaque 350 intravenous c ontrast. Automated exposure control and iterative reconstruction technique were employed. The dose-le ngth product (DLP) was 229.45 mGy-cm. COMPARISON: Chest CT 09/16/2023 FINDINGS: There are patchy airspace and groundglass opacities in right upper lobe. There is a cluster of nodules in right lung lower lobe with calcification of the largest nodule, consistent with old gr anulomatous disease. There is confluent right hilar and subcarinal lymphadenopathy measuring 5.9 x 3. 6 cm with total occlusion of the right upper lobe pulmonary artery and narrowing of the right middle lobe and right lower lobe pulmonary arteries. The lymphadenopathy previously measured 5.1 x 2.8 cm. T here are a few scattered nodules in the lungs measuring up to 4 mm. No pleural effusion. The heart si ze is normal. No pericardial effusion. There is a small sliding hiatal hernia. There are changes of g astric sleeve procedure. There is mild cervical and thoracic spondylosis. IMPRESSION: 1. Worsened confluent right hilar and subcarinal lymphadenopathy, consistent with metastatic disease. 2. Right upper lobe pneumonia. Reviewed, dictated and finalized at location E. IMPRESSION: 1. Worsened confluent right hilar and subcarinal lymphadenopathy, consistent wi th metastatic disease. 2. Right upper lobe pneumonia.
[2023-11-16 16:38] LABS: Estimated Glomerular Filt Rate > 60
== END 2023-11-16 15:42 | disposition home or self-care (01) ==
LOC: ANHIMG 15:42
PROVIDERS: PCP Family Medicine; Visit Provider Family Medicine
DX: R91.8 Other nonspecific abnormal finding of lung field (principal); R59.0 Localized enlarged lymph nodes; J18.9 Pneumonia, unspecified organism
CPT/HCPCS: 71260; Q9967

== ENCOUNTER 2024-01-14 12:40 | Outpatient (CLI) | payer BC, SELFPAY ==
[2024-01-14 13:52] LABS: Basophils Percent Auto 0.5 % (0.2-1.2); Eosinophils Absolute Auto 0.1 K/mm3 (0-0.3); Eosinophils Percent Auto 0.7 % (0-4.4); Hematocrit 38.7 % (37.0-47.0); Hemoglobin 12.2 g/dL (12.0-15.0); Immature Granulocyte Absolute 0.03 K/mm3 (0.00-0.031); Immature Granulocyte Percent A 0.4 % (0-0.5); Lymphocytes Absolute Auto 2.22 K/mm3 (0.9-3.2); Lymphocytes Percent Auto 26.7 % (18.3-44.2); Mean Corpuscular HGB Conc 31.5 g/dl (32-36); Mean Corpuscular Hemoglobin 26.8 pg (26-34); Mean Corpuscular Volume 85.1 fl (80-100); Mean Platelet Volume 10.5 fl (7.4-10.4); Monocytes Absolute Auto 0.6 K/mm3 (0.1-0.6); Monocytes Percent Auto 6.9 % (2.6-8.5); Neutrophils Absolute Auto 5.4 K/mm3 (1.3-6.7); Neutrophils Percent Auto 64.8 % (45.5-73.1); Platelet Count Result 318 k/mm3 (150-375); Red Blood Count 4.55 M/mm3 (4.2-5.4); Red Cell Distribution Width 14.5 % (11.5-14.5); White Blood Count 8.3 K/mm3 (4.5-10.0)
[2024-01-17 12:43] LABS: Angiotensin Converting Enzyme 31 U/L (9-67)
[2024-01-17 17:48] LABS: Immunoglobulin E 13 kU/L (<OR=114)
[2024-01-24 07:10] LABS: Reference Lab Test Result <0.2
== END 2024-01-14 12:41 | disposition home or self-care (01) ==
PROVIDERS: PCP Family Medicine; Referring Provider Family Medicine; Visit Provider Internal Medicine Pulmonary Disease
DX: R91.8 Other nonspecific abnormal finding of lung field (principal); Z68.35 Body mass index [BMI] 35.0-35.9, adult; R53.83 Other fatigue; R59.0 Localized enlarged lymph nodes
CPT/HCPCS: 36415; 82164; 82785; 85025

== ENCOUNTER 2024-02-10 06:48 | Outpatient (CLI) | payer BC, SELFPAY ==
[2024-02-10 07:55] LABS: Basophils Percent Auto 0.8 % (0.2-1.2); Eosinophils Absolute Auto 0.1 K/mm3 (0-0.3); Eosinophils Percent Auto 1.8 % (0-4.4); Hematocrit 39.4 % (37.0-47.0); Hemoglobin 12.5 g/dL (12.0-15.0); Lymphocytes Absolute Auto 1.93 K/mm3 (0.9-3.2); Lymphocytes Percent Auto 38.3 % (18.3-44.2); Mean Corpuscular HGB Conc 31.7 g/dl (32-36); Mean Corpuscular Hemoglobin 26.8 pg (26-34); Mean Corpuscular Volume 84.5 fl (80-100); Mean Platelet Volume 10.9 fl (7.4-10.4); Monocytes Absolute Auto 0.3 K/mm3 (0.1-0.6); Monocytes Percent Auto 6.5 % (2.6-8.5); Neutrophils Absolute Auto 2.7 K/mm3 (1.3-6.7); Neutrophils Percent Auto 52.6 % (45.5-73.1); Platelet Count Result 297 k/mm3 (150-375); Red Blood Count 4.66 M/mm3 (4.2-5.4); Red Cell Distribution Width 14.5 % (11.5-14.5)
[2024-02-10 08:52] LABS: Alanine Aminotransferase 19 U/L (6-35); Albumin Level 4.1 g/dL (3.5-5.1); Alkaline Phosphatase 75 U/L (38-126); Aspartate Amino Transferase 23 U/L (14-36); Bilirubin,Total 0.4 mg/dL (0.2-1.3); Blood Urea Nitrogen 10 mg/dL (7-17); Calcium 8.8 mg/dL (8.4-10.2); Carbon Dioxide 26 mmol/L (22-30); Estimated Glomerular Filt Rate > 60; Glucose 88 mg/dL (65-110)
[2024-02-10 09:01] LABS: Anion Gap 8 mmol/L (4-12); Chloride 105 mmol/L (98-107); Potassium 3.9 mmol/L (3.4-5.0); Sodium 139 mmol/L (137-145)
[2024-02-10 09:24] LABS: Vitamin D 25 Hydroxy 50.1 ng/mL
== END 2024-02-10 06:49 | disposition home or self-care (01) ==
LOC: ANHLAB 06:49
PROVIDERS: PCP Family Medicine; Visit Provider Family Medicine
DX: E78.5 Hyperlipidemia, unspecified (principal); D64.9 Anemia, unspecified; E55.9 Vitamin D deficiency, unspecified; I10 Essential (primary) hypertension; E66.9 Obesity, unspecified; F32.A Depression, unspecified; G25.81 Restless legs syndrome; R53.82 Chronic fatigue, unspecified
CPT/HCPCS: 36415; 80053; 82306; 85025

== ENCOUNTER 2024-03-31 18:34 | Emergency (ER) | payer BC, SELFPAY ==
--- NOTE | 2024-03-31 18:36 | ED.SKABFB ---
HPI - Skin/Abscess/Foreign Bdy General Chief complaint: Skin/Abscess/Foreign Body Stated complaint: RASH Time Seen by Provider: 03/31/24 18:55 Source: patient and RN notes reviewed Mode of arrival: ambulatory Limitations: no limitations History of Present Illness HPI narrative: 48-year-old female presents with concern for stinging rash on her left calf that she noticed today. Reports it is slightly tender when she pushes on it. She reports she used hydrocortisone cream. MD complaint: rash Related Data Home Medications Medication Instructions Recorded Confirmed multivitamin (Daily Multi-Vitamin 2 tablet PO DAILY 12/08/19 03/08/24 tablet) mecobalamin (vitamin B12) 5,000 5,000 mcg PO EVERY OTHER DAY 02/12/21 03/08/24 mcg disintegrating tablet Allergies Allergy/AdvReac Type Severity Reaction Status Date / Time No Known Allergies Allergy Verified 03/08/24 14:42 Review of Systems Review of Systems: CONSTITUTIONAL: Denies malaise, chills, sweats, or fever. EYES: Denies redness, or discharge. ENT: Denies rhinorrhea, congestion, swollen lips, swollen tongue CARDIOVASCULAR: Denies chest pain, palpitations, or edema. RESPIRATORY: Denies cough or dyspnea. GASTROINTESTINAL: Denies abdominal pain, nausea, vomiting SKIN: Reports rash on her left calf MUSCULOSKELETAL: Denies joint pain or myalgia. NEUROLOGIC: Denies headache. All systems reviewed & are unremarkable except as noted in HPI and below PMFSH Past Medical History Medical History Abdominal pannus Anal fissure Anal pruritus Body mass index (bmi) 37.0-37.9, adult Chest wall pain Chronic fatigue Chronic right shoulder pain Degenerative joint disease of knee Diabetes Encounter for long-term (current) use of other medications Encounter for surgical aftercare following surgery on the digestive system Essential (primary) hypertension Hypersomnia Internal hemorrhoid, bleeding Left knee pain Medial meniscus tear Mixed restrictive and obstructive lung disease Overweight (11/30/16) Rectal bleeding Residual hemorrhoidal skin tag Restless legs syndrome Right foot pain Sarcoid Stress incontinence in female Symptomatic abdominal apron Tinea corporis Unspecified hemorrhoids Uterine fibroid Vaginitis Yeast infection of the skin Surgical History Surgical History H/O gastric sleeve (03/08/19) H/O hemorrhoidectomy History of 1992 1993 2007 History of dilation and curettage (04/23/11) History of endometrial ablation (05/07/11) History of tubal ligation (~2007) Status post panniculectomy Family History Family History Father Hypertension Mother Hypertension ASD (atrial septal defect) COPD (chronic obstructive pulmonary disease) Sibling Patient's sister is in good health Patient's brother is in good health Seizure Other Lung cancer Heart disease Grandparent Hypertension paternal grandmother maternal grandfather Other Diabetes mellitus Family history of malignant neoplasm Social History Social History Smoking status: Never smoker Second hand tobacco smoke exposure: Yes Alcohol intake: current Alcohol use details: Special Occasions Substance use: never Substance use type: does not use Lack of Transportation: YES Lack of Food: Often True Current Housing: I Do Not Have Housing Concerned About Future Housing: Decline to Answer Difficulty Paying Gas/Electric Bills: YES Difficulty Paying for Meds: YES Currently Unemployed: No Education: High School Diploma/GED Difficulty w/ Childcare or Family Care: No Living arrangements: with family Occupation/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
[2024-03-31 18:46] VITALS: BP 152/94; PULSE 71; RESP 16; TEMP 36.6; O2SAT 100
== END 2024-03-31 19:14 | disposition home or self-care (01) ==
PROVIDERS: Emergency Provider Nurse Practitioner; PCP Family Medicine
DX: R21 Rash and other nonspecific skin eruption (principal); E11.9 Type 2 diabetes mellitus without complications; I10 Essential (primary) hypertension; G25.81 Restless legs syndrome; Z98.84 Bariatric surgery status
CPT/HCPCS: 99213; G0463

== ENCOUNTER 2024-05-09 17:51 | Emergency (ER) | payer BC, SELFPAY ==
[2024-05-09 17:54] VITALS: BP 163/78; PULSE 100; RESP 18; TEMP 36.2; O2SAT 97
[2024-05-09 18:03] VITALS: RESP 18
--- NOTE | 2024-05-09 18:52 | ED.OVERDOSE ---
HPI - Overdose General Chief Complaint: Overdose Stated Complaint: ate 100mg pot brownie, altered Time Seen by Provider: 05/09/24 17:55 History of Present Illness HPI Narrative: 49-year-old female presenting with altered mental status. Patient states that she got home from work this afternoon and she ate an edible to help her sleep and to help her chronic back pain. States that she sometimes will take low-dose edibles for the symptoms. Today she ate an entire Brownie thinking that it was only 10 mg. She then realized that it was a 100 mg brownie. States that she is now extremely high and anxious. Feels paranoid. Denies any new pain. No shortness of breath. She states that her mouth feels very dry. Her is at bedside and states that she is not a frequent cannabis user. Related Data Home Medications Medication Instructions Recorded Confirmed multivitamin (Daily Multi-Vitamin 2 tablet PO DAILY 12/08/19 03/08/24 tablet) mecobalamin (vitamin B12) 5,000 5,000 mcg PO EVERY OTHER DAY 02/12/21 03/08/24 mcg disintegrating tablet Allergies Allergy/AdvReac Type Severity Reaction Status Date / Time No Known Allergies Allergy Verified 03/08/24 14:42 Review of Systems Review of Systems: All systems reviewed & are unremarkable except as noted in HPI and below PMFSH Past Medical History Medical History Abdominal pannus Anal fissure Anal pruritus Body mass index (bmi) 37.0-37.9, adult Chest wall pain Chronic fatigue Chronic right shoulder pain Degenerative joint disease of knee Diabetes Encounter for long-term (current) use of other medications Encounter for surgical aftercare following surgery on the digestive system Essential (primary) hypertension Hypersomnia Internal hemorrhoid, bleeding Left knee pain Medial meniscus tear Mixed restrictive and obstructive lung disease Overweight (11/30/16) Rectal bleeding Residual hemorrhoidal skin tag Restless legs syndrome Right foot pain Sarcoid Stress incontinence in female Symptomatic abdominal apron Tinea corporis Unspecified hemorrhoids Uterine fibroid Vaginitis Yeast infection of the skin Surgical History Surgical History H/O gastric sleeve (03/08/19) H/O hemorrhoidectomy History of 1991 1993 2007 History of dilation and curettage (04/23/11) History of endometrial ablation (05/07/11) History of tubal ligation (~2007) Status post panniculectomy Family History Family History Father Hypertension Mother Hypertension ASD (atrial septal defect) COPD (chronic obstructive pulmonary disease) Sibling Patient's sister is in good health Patient's brother is in good health Seizure Other Lung cancer Heart disease Grandparent Hypertension paternal grandmother maternal grandfather Other Diabetes mellitus Family history of malignant neoplasm Social History Social History Smoking status: Never smoker Second hand tobacco smoke exposure: Yes Alcohol intake: current Alcohol use details: Special Occasions Substance use: never Substance use type: marijuana Lack of Transportation: YES Lack of Food: Often True Current Housing: I Do Not Have Housing Concerned About Future Housing: Decline to Answer Difficulty Paying Gas/Electric Bills: YES Difficulty Paying for Meds: YES Currently Unemployed: No Education: High School Diploma/GED Difficulty w/ Childcare or Family Care: No Living arrangements: with family 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
[2024-05-09] MEDS: LORazepam (*CRX) 0.5 MG TABLET PO (19:13)
--- NOTE | 2024-05-09 19:22 | PC.NURSE ---
Patient was given Ativan PO; while talking to family patient vomited. Patient cleaned and placed in gown. EDP made aware.
[2024-05-09 21:24] VITALS: BP 124/76; PULSE 88; RESP 20; TEMP 36.7; O2SAT 100
== END 2024-05-09 21:25 | disposition home or self-care (01) ==
PROVIDERS: Emergency Provider Emergency Medicine; PCP Family Medicine
DX: T40.711A Poisoning by cannabis, accidental (unintentional), initial encounter (principal); I10 Essential (primary) hypertension; E11.9 Type 2 diabetes mellitus without complications; J44.9 Chronic obstructive pulmonary disease, unspecified
CPT/HCPCS: 99284; A9270

== ENCOUNTER 2024-05-26 15:33 | Emergency (ER) | payer BC, SELFPAY ==
--- NOTE | ~2024-05-26 | XR_ITS ---
XR knee RT 3V Ordering provider: Raheel Chaney PA-C History: . R knee pain x 1 week . Comparison: November 15, 2013 FINDINGS: BONES: No acute fracture or dislocation. JOINT SPACES: Normal. SOFT TISSUES: Normal. IMPRESSION: No acute osseous abnormality right knee. Reviewed, dictated and finalized at location A.
--- NOTE | ~2024-05-26 | US_ITS ---
RIGHT LOWER EXTREMITY VENOUS ULTRASOUND Ordering provider: Raheel Chaney PA-C History: . R thigh pain and burning . Comparison: None. FINDINGS: --COMMON FEMORAL: Patent and free of thrombus. Normal compressibility, phasic flow and augmentation. --PROXIMAL SUPERFICIAL FEMORAL: Patent and free of thrombus. Normal compressibility, phasic flow and augmentation. --DISTAL SUPERFICIAL FEMORAL: Patent and free of thrombus. Normal compressibility, phasic flow and au gmentation. --POPLITEAL: Patent and free of thrombus. Normal compressibility, phasic flow and augmentation. --POSTERIOR TIBIAL: Patent and free of thrombus. Normal compressibility, phasic flow and augmentation . IMPRESSION: Negative right lower extremity venous US. No deep vein thrombosis. Reviewed, dictated and finalized at location A.
--- NOTE | ~2024-05-26 | XR_ITS ---
XR hip RT 2V w AP pelvis Ordering provider: Raheel Chaney PA-C History: . R hip pain x 1 week, atraumatic . Comparison: August 19, 2023 FINDINGS: BONES: No acute fracture or dislocation. HIP JOINT SPACES: Bilateral hip mild osteoarthritic changes. SACROILIAC JOINT SPACES/LUMBAR SPINE: The sacroiliac joint spaces are normal. Mild degenerative nugent es of the visualized lower lumbar spine. PUBIC SYMPHYSIS: Normal. SOFT TISSUES: Normal. IMPRESSION: No acute osseous abnormality pelvis and right hip. Reviewed, dictated and finalized at location A.
[2024-05-26 15:48] VITALS: BP 146/88; PULSE 76; RESP 17; TEMP 36.5; O2SAT 100
--- NOTE | 2024-05-26 16:34 | ED_ITS ---
HPI - Extremity Problem General Chief complaint: Extremity Problem,Nontraumatic <Raheel Chaney PA-C - Last Filed: 05/26/24 16:35> Stated complaint: right leg pain <Raheel Chaney PA-C - Last Filed: 05/26/24 16:35> Time Seen by Provider: 05/26/24 16:33 <Raheel Chaney PA-C - Last Filed: 05/26/24 16:35> Focused HPI: This is a 49-year-old female who presents to the ED with chief complaint of atraumatic right thigh pain for the past week and half. Reports that the pain is worse in the mid thigh but feels like it radiates from the to hip. Denies any injuries or falls. Denies numbness, weakness. Describes a burning sensation to the right thigh and it is extremely sensitive. Denies fevers, chills, nausea, vomiting, numbness, weakness. GENERAL: Well-appearing, well-nourished, and in no acute distress. HEAD: Normocephalic, atraumatic. CHEST: Clear to auscultation. No respiratory distress. HEART: Regular rate and rhythm. NEURO: Alert and oriented x3. Patient screened in triage and initial orders placed. Additional care and disposition to be based upon diagnostic testing and treatment. <Raheel Chaney PA-C - Last Filed: 05/26/24 16:35> Source: patient <Raheel Chaney PA-C - Last Filed: 05/26/24 16:35> Mode of arrival: ambulatory <Raheel Chaney PA-C - Last Filed: 05/26/24 16:35> Limitations: no limitations <Raheel Chaney PA-C - Last Filed: 05/26/24 16:35> History of Present Illness HPI Narrative: Agree with HPI <Rolf Greer MD - Last Filed: 05/26/24 21:42> Related Data Home medications: Home Medications Medication Instructions Recorded Confirmed multivitamin (Daily Multi-Vitamin 2 tablet PO DAILY 12/08/19 03/08/24 tablet) mecobalamin (vitamin B12) 5,000 5,000 mcg PO EVERY OTHER DAY 02/12/21 03/08/24 mcg disintegrating tablet <Raheel Chaney PA-C - Last Filed: 05/26/24 16:35> Allergies/Adverse reactions: Allergies Allergy/AdvReac Type Severity Reaction Status Date / Time No Known Allergies Allergy Verified 03/08/24 14:42 <Raheel Chaney PA-C - Last Filed: 05/26/24 16:35> Review of Systems Constitutional: Constitutional: Reports no additional constitutional complaints <Rolf Greer MD - Last Filed: 05/26/24 21:42> Musculoskeletal: Musculoskeletal: Reports no additional musculoskeletal complaints <Rolf Greer MD - Last Filed: 05/26/24 21:42> Integumentary/Breasts: Skin/Breast: Reports system reviewed and no additional complaints, except as docu <Rolf Greer MD - Last Filed: 05/26/24 21:42> Neurologic: Denies headache(s), Denies focal weakness, Denies numbness and Reports paresthesias <Rolf Greer MD - Last Filed: 05/26/24 21:42> [facility], [facility] Past Medical History Medical History: Medical History Abdominal pannus Anal fissure Anal pruritus Body mass index (bmi) 37.0-37.9, adult Chest wall pain Chronic fatigue Chronic right shoulder pain Degenerative joint disease of knee Diabetes Encounter for long-term (current) use of other medications Encounter for surgical aftercare following surgery on the digestive system Essential (primary) hypertension Hypersomnia Internal hemorrhoid, bleeding Left knee pain Medial meniscus tear Mixed restrictive and obstructive lung disease Overweight (11/30/16) Rectal bleeding Residual hemorrhoidal skin tag Restless legs syndrome Right foot pain Sarcoid Stress incontinence in female Symptomatic abdominal apron Tinea corporis Unspecified hemorrhoids Uterine fibroid Vaginitis Yeast infection of the skin <Raheel Chaney PA-C - Last Filed: 05/26/24 16:35> Surgical History Surgical History: Surgical History H/O gastric sleeve (03/08/19) H/O hemorrhoidectomy History of 1992 1994 2007 History of dilation and curettage (04/23/11) History of endometrial ablation (05/07/11) History of tubal ligation (~2007) Status post panniculectomy <Raheel Chaney PA-C - Last Filed: 05/26/24 16:35> Family History Family History: Family History Father Hypertension Mother Hypertension ASD (atrial septal defect) COPD (chronic obstructive pulmonary disease) Sibling Patient's sister is in good health Patient's brother is in good health Seizure Other Lung cancer Heart disease Grandparent Hypertension paternal grandmother maternal grandfather Other Diabetes mellitus Family history of malignant neoplasm <Raheel Chaney PA-C - Last Filed: 05/26/24 16:35> Social History Social History: Social History Smoking status: Never smoker Second hand tobacco smoke exposure: Yes Alcohol intake: current Alcohol use details: Special Occasions Substance use: never Substance use type: marijuana Lack of Transportation: YES Lack of Food: Often True Current Housing: I Do Not Have Housing Concerned About Future Housing: Decline to Answer Difficulty Paying Gas/Electric Bills: YES Difficulty Paying for Meds: YES Currently Unemployed: No Education: High School Diploma/GED Difficulty w/ Childcare or Family Care: No Living arrangements: with family 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 HEAD: Normocephalic, atraumatic. ENT: Mucous membranes moist. Back: No midline tenderness at T/L spine. No paraspinal muscle tenderness. EXTREMITIES: Normal range of motion. No edema. Mild tenderness over the posterior and lateral right hip. Increased sensitivity over the mid thigh with palpation. SKIN: Warm, dry, no rash. NEURO: Alert and oriented x3. PSYCH: Normal mood and affect. <Rolf Greer MD - Last Filed: 05/26/24 21:42> Course Course Emergency Course: Patient resting comfortably. Symptoms likely related the paresthesia from irritation of the are fair will give Tylenol since she has had a gastric bypass and also give us relaxers. Discussed need for follow-up and further evaluation <Rolf Greer MD - Last Filed: 05/26/24 21:42> Vital Signs Vital signs: Vital Signs Temperature 97.7 F 05/26/24 15:48 Pulse Rate 76 05/26/24 15:48 Respiratory Rate 17 05/26/24 15:48 Blood Pressure 146/88 H 05/26/24 15:48 Pulse Oximetry 100 05/26/24 15:48 Oxygen Delivery Room Air 05/26/24 15:48 Temperature 98.1 F 05/26/24 20:12 Pulse Rate 66 05/26/24 20:12 Respiratory Rate 14 05/26/24 20:12 Blood Pressure 121/67 05/26/24 20:12 Pulse Oximetry 100 05/26/24 20:12 Oxygen Delivery Room Air 05/26/24 15:48 <Raheel Chaney PA-C - Last Filed: 05/26/24 16:35> Vital Signs Temperature 97.7 F 05/26/24 15:48 Pulse Rate 76 05/26/24 15:48 Respiratory Rate 17 05/26/24 15:48 Blood Pressure 146/88 H 05/26/24 15:48 Pulse Oximetry 100 05/26/24 15:48 Oxygen Delivery Room Air 05/26/24 15:48 Temperature 98.1 F 05/26/24 20:12 Pulse Rate 66 05/26/24 20:12 Respiratory Rate 14 05/26/24 20:12 Blood Pressure 121/67 05/26/24 20:12 Pulse Oximetry 100 05/26/24 20:12 Oxygen Delivery Room Air 05/26/24 15:48 <Rolf Greer MD - Last Filed: 05/26/24 21:42> MDM - Extremity (Nontraumatic) Imaging Data Radiologist's impression: ITS Impressions Knee X-Ray 05/26/24 16:53 IMPRESSION: No acute osseous abnormality right knee. Hip/Pelvis X-Ray 05/26/24 17:15 IMPRESSION: No acute osseous abnormality pelvis and right hip. Venous Doppler Study 05/26/24 17:17 IMPRESSION: Negative right lower extremity venous US. No deep vein thrombosis. <Rolf Greer MD - Last Filed: 05/26/24 21:42> Discharge Plan Discharge Clinical Impression: Paresthesia of right leg <Raheel Chaney PA-C - Last Filed: 05/26/24 16:35> Patient Disposition: Home, Self-Care <Raheel Chaney PA-C - Last Filed: 05/26/24 16:35> Condition: Stable <Raheel Chaney PA-C - Last Filed: 05/26/24 16:35> Instructions: Lumbar Radiculopathy (ED) <Raheel Chaney PA-C - Last Filed: 05/26/24 16:35> Additional Instructions: Please return to the emergency department if you develop severe pain that is not controlled by pain medications or if you are unable to walk because of pain or weakness. Return to the emergency department immediately if you develop fevers, loss of bowel or bladder control (dribbling of urine or having accidents you wouldn't normally have), inability to urinate, numbness of your genital or anal area, or weakness/numbness of your legs or arms as these could all be signs of a serious medical emergency. It is possible your sciatic nerves being irritated causing her discomfort. Take Tylenol and cyclobenzaprine to help with discomfort. If symptoms persist you may require an MRI or additional workup by your PCP. <Raheel Chaney PA-C - Last Filed: 05/26/24 16:35> Prescriptions: New acetaminophen 500 mg capsule 500 mg PO QID PRN (Reason: pain) Qty: 20 0RF cyclobenzaprine 10 mg tablet 10 mg PO TID PRN (Reason: muscle spasm) Qty: 20 0RF No Action sulfamethoxazole-trimethoprim 800-160 mg tablet 1 tablet PO Q12H 5 Days Qty: 10 0RF mupirocin 2 % ointment 1 applic topical BID 7 Days Qty: 22 0RF multivitamin [Daily Multi-Vitamin] Tablet 2 tablet PO DAILY mecobalamin (vitamin B12) 5,000 mcg tablet,disintegrating 5,000 mcg PO EVERY OTHER DAY estradiol 0.01 % (0.1 mg/gram) cream 1 g vaginal 3XW Qty: 42.5 3RF cholecalciferol (vitamin D3) 1,250 mcg (50,000 unit) capsule 1,250 mcg PO WEEKLY Qty: 14 1RF (DME) pen needle, diabetic [Ultra-Thin II Ins Pen [place]] 29 gauge x 1/2 needle See Rx Instructions .Route Qty: 100 1RF Rx Instructions: inject once daily As directed Wegovy 1 mg/0.5 mL pen injector 1 mg subcut WEEKLY Qty: 2 0RF Rx Instructions: administer weeks 9 through 12 of therapy Wegovy 1.7 mg/0.75 mL pen injector 1.7 mg subcut WEEKLY Qty: 3 0RF Rx Instructions: administer weeks 13 through 16 of therapy <Raheel Chaney PA-C - Last Filed: 05/26/24 16:35> Follow-up/Referrals: Elliott Shea MD [Primary Care Provider] - 1 Week <Raheel Chaney PA-C - Last Filed: 05/26/24 16:35>
[2024-05-26 19:35] VITALS: BP 158/92; PULSE 83; RESP 16; O2SAT 98
[2024-05-26] MEDS: KETOROLAC 30 MG/ML VIAL (*BKC) IM (20:10)
[2024-05-26 20:12] VITALS: BP 121/67; PULSE 66; RESP 14; TEMP 36.7; O2SAT 100
== END 2024-05-26 20:13 | disposition home or self-care (01) ==
PROVIDERS: Emergency Provider Emergency Medicine; PCP Family Medicine
DX: R20.2 Paresthesia of skin (principal); I10 Essential (primary) hypertension; E11.9 Type 2 diabetes mellitus without complications; J44.9 Chronic obstructive pulmonary disease, unspecified; N39.3 Stress incontinence (female) (male); G25.81 Restless legs syndrome; R53.82 Chronic fatigue, unspecified; Z98.84 Bariatric surgery status; Z79.85 Long-term (current) use of injectable non-insulin antidiabetic drugs
CPT/HCPCS: 73502; 73562; 93971; 96372; 99284; J1885

== ENCOUNTER 2024-12-07 10:03 | Outpatient (CLI) | payer OTHER, BC, SELFPAY ==
--- OUTSIDE RECORDS SUMMARY | 2024-12-07 10:20 | XMS_ITS | Clinical Summary ---
Author Organization [facility] Address [address] [place] [address] Phone Care Team Providers Care Ultrasonographer Name Role Phone Jordan Javier MD Primary Care Provider [phone] Allergies No known active allergies Medications lisinopril-hydro CHLOROthiazide (PRINZIDE, ZESTORETIC) 10-12.5 MG Tablet Take by mouth daily. Active metroNIDAZOLE (FLAGYL) 500 MG Tablet Take 1 Tab by mouth 3 times daily. 30 Tab 01/15/2017 Active HYDROcodone-acet aminophen (NORCO) 5-325 MG Tablet Take 1-2 Tabs by mouth every 4 hours as needed for Pain. 20 Tab 01/15/2017 Active Social History Tobacco Use Types Packs/Day Years Used Date Smoking Tobacco: Never Alcohol Use Standard Drinks/Week Comments Yes 0 (1 standard drink = 0.6 oz pur e alcohol) Socially Comments No Sex and Gender Information Value Date Recorded Sex Assigned at Not on file Legal Sex Female 3:35 AM CDT Gender Identity Not on file Sexual Orientation Not on file Last Filed Vital Signs Vital Sign Reading Time Taken Comments Blood Pressure 122/69 01/15/2017 10:30 PM CDT Pulse 73 01/15/2017 11:30 PM CDT Temperature 36.7 C (98.1 F) 01/15/2017 9:00 PM CDT Respiratory Rate 20 01/15/2017 9:00 PM CDT Oxygen Saturation 100% 01/15/2017 11:30 PM CDT Inhaled Oxygen Concentration - - Weight 108.9 kg (240 lb) 01/15/2017 9:00 PM CDT Height 160 cm (5' 3 ) 01/15/2017 9:00 PM CDT Body Mass Index 42.51 01/15/2017 9:00 PM CDT Plan of Treatment Health Maintenance Due Date Last Done Comments Hepatitis C Virus (HCV) Screening 1974 TdaP Immunization 1974 Hepatitis B Immunization (1 of 3 - 19+ 3-dose series) 1993 Pap Smear 1995 Cervical Cancer Screening (CCS) 2004 HPV/Cotest 2004 Discussion re Starting/Frequ ency of Mammograms 2014 Colonoscopy 2019 Colorectal Cancer Screening 2019 Influenza Immunization (#1) 2024 SARS-COV-2 Immunization ( - season) 2024 Cologuard 2024 Immunochemical Fecal Occult Blood 2024 Mammogram 2024 Pneumococcal Immunization (5 0+ years) (1 of 1 - PCV) 2024 Zoster Immunization (1 of 2) 2024 Respiratory Syncytial Virus (RSV) Immunization (Adult) (1 - 1-dose 75+ series) 2049 Meningococcal Immunization (ACWY) Aged Out No longer eligible based on patient's age to complete this topic Pneumococcal Immunization Combined Aged Out No longer eligible based on patient's age to complete this topic Rotavirus Immunization Aged Out No lo nger eligible based on patient's age to complete this topic Insurance [facility] MEDICAID [facility] Care Teams Ultrasonographer Relationship Specialty Start Date End Date Jordan Javier MD [address] [facility] [address] [place] [address] PCP - General Internal Medicine 01/15/17
--- OUTSIDE RECORDS SUMMARY | 2024-12-07 10:20 | XMS_ITS | Continuity of Care Document ---
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 Name Role Phone Carroll Packer MD Unavailable Unavailable Allergies, Adverse Reactions, Alerts Substance Reaction Status Criticality No Known Allergies Active No Inform ation Medications Medication Instructions Dosage Effective Dates (start - stop) Status Comments folic acid 400 mcg tablet take 1 tablet by oral route every day 0.4 MG - Active prednisone 20 mg tablet take 2 Tablet by oral route every day 40 MG - Active Ventolin HFA 90 mcg/actuation aerosol inhaler inhale 2 puff by inhalation route every 4 - 6 hours as needed as needed - Active PRN for sob lisinopril 20 mg-hydrochlorothia zide 12.5 mg tablet take 1 tablet by oral route every day 1.00 tablet - Active Procedures Procedure Date OFFICE/OUTPATIENT VISIT, EST PREV VISIT, EST, AGE 40-64 OFFICE/OUTPATIENT VISIT, EST PREV VISIT, EST, AGE 40-64 OFFICE/OUTPATIENT VISIT, EST OFFICE/OUTPATIENT VISIT, EST PREV VISIT, NEW, AGE 40-64 OFFICE/OUTPATIENT VISIT, NEW Advance Directives Directive Yes / No Effective Date File Name No Information Encounters Encounter Description Practice Location Reason(s) For Visit Diagnoses Date Provider Providers Copied on Encounter [facility], [address] [facility] [place], [id number], [place] tel:[phone] [facility] No Information 9 Ochoa Singh [address], [address], [place], [place], [address] , [place]. tel:[phone] OFFICE/OUTPA TIENT VISIT, EST [facility], [address], [place], [place], [address], [place] tel:[phone] [facility] folic1 (chief complaint) lung (chief complaint) neck pain1 (chief complaint) Body mass index (BMI) 45.0-49.9, adultFolate deficiencySarcoidos is of lungShortness of breath 9 Ochoa Singh [address], [place], [place], [address] , [place]. tel:[phone] Referring Provider: Ralph Cervantes [address], [place], [place], [address]. tel:[phone] PREV VISIT, EST, AGE 40-64 [facility], [address], [place], [place], [address], [place] tel:[phone] [facility] Physical (chief complaint) Encounter for general adult medical exam w abnormal findingsFolate deficiencyEssential (primary) hypertensionSarcoid osis of lungPain in unspecified handCervicalgia 8 Ochoa Singh [address], [place], [place], [address] , [place]. tel:[phone] Referring Provider: Ralph Cervantes [address], [place], [place], [address]. tel:[phone] PREV VISIT, EST, AGE 40-64 [facility], [address], [place], [place], [address], [place] tel:[phone] [facility] Medicine Physical (chief complaint) Encounter for general adult medical exam w abnormal findingsEssential (primary) hypertensionFolate deficiencySolitary lung noduleBody mass index (BMI) 45.0-49.9, adult Mar-0 8-201 8 Ocho[address] Rosas [address], [place], [place], [address] , [place]. tel:[phone] Referring Provider: Ralph Cervantes [address], [place], [place], [address]. tel:[phone] OFFICE/OUTPA TIENT VISIT, EST [facility], [address], [place], [place], [address], [place] tel:[phone] [facility] HTN (chief complaint) folate1 (chief complaint) skin1 (chief complaint) Body mass index (BMI) 45.0-49.9, adultEssential (primary) hypertensionFolate deficiencyVitamin D deficiency, unspecified 8 Ochoa Hodges. [address], [place], [place], [address] , [place]. [phone] Referring Provider: Ralph Cervantes [address] [facility] [address], [place], [place], [address]. tel:[phone] PREV VISIT, NEW, AGE 40-64 [facility], [facility] [address] [place], [address], [place] tel:[phone] [facility] Physical (chief complaint) Encounter for general adult medical exam w abnormal findingsEssential (primary) hypertensionSolitar y lung noduleCellulitis of abdominal wall 8 Ochoa Hodges. [address], [place], [place], [address] , [place]. [phone] Referring Provider: Ralph Cervantes [address] [facility], [place], [place], [address]. tel:[phone] Family History Family Member Type Diagnosis Age At Onset Father Problem (finding) Alive and well Mother Problem (finding) Alive and well Brother Problem (finding) Alive and well Payers Payer name Insurance type Covered republican ID Authoriza tion(s) No Information Social History Type Description Quantity Date Captured Comments Sex Female Smoking Status No Information Chief Complaint And Reason For Visit No Information Plan Of Treatment Date Type Action Status Goal Special diet education compl eted Goal Special diet education compl eted Goal Special diet education compl eted Goal Prescribed dietary intake co mpleted Goal Special diet education compl eted Goal Special diet education compl eted Referral Ordered: Beto Sykes -[facility] : Surgery (related to Pain in unspecified hand) ordered Referral Ordered: CERVICAL SPINE XRAY 7 VIEWS ordered Referral Referred To: Beto Sykes [facility] [address] [place], [place] [phone] Ordered: Referrals: [facility] : Surgery. Beto Sykes. Evaluate and treat ordered Referral Ordered: CT THORAX W/O DYE ordered Referral Ordered: Raphael Casey -[facility] : Surgery (related to Body mass index (BMI) 45.0-49.9, adult) ordered Referral Referred To: Raphael Casey [address] [address] [place], [place], [address] Ordered: Referrals: [facility] : Surgery. Raphael Casey. Evaluate and treat ordered Referral Ordered: Willie Campbell -[facility] : Surgery (related to Cellulitis of abdominal wall) ordered Referral Referred To: Willie Campbell [address] [facility]
[address] [phone] Ordered: Referrals: [facility] : Surgery. Willie Campbell. Evaluate and treat ordered Referral Ordered: MAMMOGRAM, SCREENING ordered History Of Present Illness Encounter Date Complaint History Of Prese nt Illness lung Pt has pulmonary sarcoid and frequent sob. Pt denies any exertional sob Pt notices wheezing .Pt denies any chest pain. Pt states that she tried to call her pulmonary MD but either she has to leave message or nobody answers. pt has hard time making appointment with her pulmonary MD. Pt has mild dry cough. Pt denies any recent travel or bedrest. pt denies any calf pain neck pain1 Pt has neck pain and bilateral hand and wrist pain. Pt has mild hand numbness Pt has not do neck x ray or make appointment with Dr. Sykes yet. Pt denies worsening symptoms folic1 Pt has low folic acid. Pt is folic supplement. pt feels more energy Physical Pt needs annual physical. Pt has lung nodule and she was diagnosed with sarcoidosis recently by pulmonary pt feels sob sometimes, worse with exertion. Pt will do sleep study and PFT next week by pulmonary Pt denies any acute sob. pt denies any wheezing. Pt has HTN. Pt takes lisinopril/hctz and her BP is stable. Pt has low folate pt does eat green vegetable. Pt c/o neck pain for several months. Pt denies any injury. Pt notices sharp pain when moving her neck Pt also c/o bilateral wrist and hand pain and weakness for several weeks. Pt denies any radiculopathy Pt denies any tingling. Pt sometimes wakes up at night with wrist and hand pain. Pt denies any injury. Physical Pt needs annual physical. pt is obese. Pt has pannus around her abdomen and she has chronic skin irritation from the sweat and pressure Pt did not go to bariatric surgery in [place] and she told me she is getting on BCBS and she will try to do bariatric surgery locally. Pt has been using nystatin topical and she is doing ok around the abdominal skin area without any infection. Pt denies any other complaints skin1 Pt has recurrent skin infection around lower abdomen due to obese abdomen. Pt went to see Dr. matos and also plastic surgeon in [facility] for lipo suction but they told her she is too overall obese for local treatment. folate1 Pt has low folat e and low D HTN Pt has HTN. Pt t akes lisinopril/hctz and her BP is stable. Physical Pt needs annual physical. Pt has HTn. Pt takes a BP pill but she does not remember the name,. her BP is stable. Pt has lung nodule and she is getting interval chest CT. Pt denies any chest pain or sob. pt also has recurrent skin infection due to skin fold. pt states the skin is raw with some drainage and foul smell. Pt denies any fever, chill. Pt denies any other complaints Instructions Date Instruction Additional Infor steffany Weight management Related to Day coidosis of lung Increase physical activity Relat ed to Sarcoidosis of lung Special diet education Related t o Body mass index (BMI) 45.0-49.9, adult Special diet education Related t o Body mass index (BMI) 45.0-49.9, adult Increase physical activity Relat ed to Encounter for general adult medical exam w abnormal findings Weight management Related to Enc ounter for general adult medical exam w abnormal findings Weight management Related to Enc ounter for general adult medical exam w abnormal findings Special diet education Related t o Body mass index (BMI) 45.0-49.9, adult Increase physical activity Relat ed to Encounter for general adult medical exam w abnormal findings Increase activity. Related to Es sential (primary) hypertension Follow a low sodium diet. Relate d to Essential (primary) hypertension Prescribed dietary intake Relate d to Body mass index (BMI) 45.0- 49.9, adult Special diet education Related t o Body mass index (BMI) 45.0-49.9, adult Weight management Related to Enc ounter for general adult medical exam w abnormal findings Increase physical activity Relat ed to Encounter for general adult medical exam w abnormal findings Special diet education Related t o Body mass index (BMI) 45.0-49.9, adult Assessments Type Assessment Date No Information
--- OUTSIDE RECORDS SUMMARY | 2024-12-07 10:20 | XMS_ITS | Clinical Summary ---
Author Organization [facility] Address [address] [facility] [place] [address] Care Team Providers Care Medical Laboratory Scientist Name Role Phone Elliott Shea MD Primary Care Provider [phone] Allergies No known active allergies Medications LOMAIRA 8 mg Tablet 1 9 Active multivitamin (DAILY-YESI) tablet Take 1 Tablet by mouth daily. Active cyanocobalamin 1,000 mcg Tablet Take 1,000 mcg by mouth daily. Active itraconazole (SPORANOX) 100 mg capsule Take 3 tablets 3 times a day with meals for the first 2 days, then 2 tablets twice daily 124 Capsule 2 4 Active predniSONE (DELTASONE) 10 mg tablet Take 2 tablets (20 mg) daily with breakfast x 2 weeks, then 1 tablet (10 mg) daily with breakfast x 2 weeks 42 Tablet 4 Active Active Problems Problem Noted Date Diagnosed Date Hilar mass 10/06/2023 Mediastinal lymphadenopathy 10/06/2023 Morbid obesity with body mass index of 40.0-49.9 01/05/2019 Lung nodule 04/18/2018 Encounters Date Type Department Care Team Description 11/14/2024 External Device Data [facility] Provider, Abstract 10/18/2024 External Device Data [facility] Provider, Abstract 10/07/2024 External Device Data [facility] Provider, Abstract 10/04/2024 External Device Data [facility] Provider, Abstract 09/20/2024 External Device Data [facility] Provider, Abstract from Last 3 Months Family History Medical History Relation Name Comments No Known Problems Brother Healthy Father Other Mother Relation Name Status Comments Brother Alive Father Alive Mother Alive Social History Tobacco Use Types Packs/Day Years Used Date Smoking Tobacco: Never Smokeless Tobacco: Never Tobacco Cessation:Counseling Given: Not Answered Alcohol Use Standard Drinks/Week Comments Not Currently 0 (1 standard drink = 0.6 oz pur e alcohol) occasional Comments No Sex and Gender Information Value Date Recorded Sex Assigned at Not on file Legal Sex Female 8:44 AM CDT Gender Identity Not on file Sexual Orientation Not on file Last Filed Vital Signs Vital Sign Reading Time Taken Comments Blood Pressure 143/69 11/23/2023 2:00 PM CDT Pulse 60 11/23/2023 2:00 PM CDT Temperature 36 C (96.8 F) 11/23/2023 7:25 AM CDT Respiratory Rate 13 11/23/2023 2:00 PM CDT Oxygen Saturation 100% 11/23/2023 2:00 PM CDT Inhaled Oxygen Concentration - - Weight 88 kg (194 lb) 11/23/2023 7:25 AM CDT Height 160 cm (5' 3 ) 11/23/2023 7:25 AM CDT Body Mass Index 34.37 11/23/2023 7:25 AM CDT Plan of Treatment Health Maintenance Due Date Last Done Comments Pre-Diabetes and Diabetes Screening 1974 DTAP/TDAP/TD VACCINES (1 - Tdap) 1993 HEPATITIS B VACCINES (1 of 3 - 19+ 3-dose series) 04/02 HPV/Cotest (21-29) 1995 CERVICAL CANCER SCREENING 2004 HPV/Cotest (30-65) 2004 PAP SMEAR 2004 BREAST CANCER SCREENING 2014 COLORECTAL SCREENING 2019 Colorectal Cancer Screening 2019 FIT-DNA Q 3 years 2019 FIT/FOBT Q 1 year 2019 Flex Sig/CT Colonography Q 5 years 2019 INFLUENZA VACCINE (#1) 2024 ZOSTER VACCINE (1 of 2) 2024 Insurance BCBS BLUE ACCESS/TRUE BLUE PPO Advance Directives For more information, please contact: [phone] * Full Code (Latest Code Status on File) Date Activated Date Inactivated Comments 03/08/2019 11:40 AM 03/09/2019 1:07 PM * Full Code Date Activated Date Inactivated Comments 03/08/2019 11:40 AM 03/08/2019 11:40 AM * Full Code Date Activated Date Inactivated Comments 03/08/2019 8:16 AM 03/08/2019 11:39 AM * Full Code Date Activated Date Inactivated Comments 03/08/2019 6:36 AM 03/08/2019 8:16 AM * Full Code Date Activated Date Inactivated Comments 01/24/2019 12:53 PM 01/24/2019 4:55 PM Care Teams Medical Laboratory Scientist Relationship Specialty Start Date End Date Elliott Shea MD [address] [place] [id number] PCP - General Family Practice 10/22/23
--- OUTSIDE RECORDS SUMMARY | 2024-12-07 10:20 | XMS_ITS | Referral Summary ---
Author Organization [facility] Address [address] [place] [address] Care Team Providers Care Sinker Puller Name Role Phone Elliott Shea MD Primary Care Provider [phone] Elliott Shea MD Unavailable [phone] Maryjo Damon MD Unavailable [phone] Sesar Durham MD Unavailable [phone] Encounters Date Type Department Care Team Description 09/26/2024 6:29 PM TITLE I ASSISTANT - 09/26/2024 11:59 PM TITLE I ASSISTANT Hospital Encounter [address] [address] Discharge Disposition: Discharge to home or self care 09/26/2024 2:40 PM TITLE I ASSISTANT Office Visit [facility] Infectious Diseases [address] [facility] [address] [place] [id number] Sesar Durham MD Fungal infection (Primary Dx); Encounter for screening examination for sexually transmitted disease; Multiple pulmonary nodules; Mediastinal lymphadenopathy 09/14/2024 7:51 AM TITLE I ASSISTANT - 09/14/2024 11:59 PM TITLE I ASSISTANT Hospital Encounter [facility] [address] [place] [id number] Sesar Durham MD Mediastinal lymphadenopathy Discharge Disposition: Discharge to home or self care from Last 3 Months Allergies No known active allergies Medications cyanocobalamin (Vitamin B-12) 1,000 mcg tablet Take 1 tablet (1,000 mcg total) by mouth daily Active multivitamin tablet Take 1 tablet by mouth daily Active semaglutide (Wegovy) 0.5 mg/0.5 mL auto-injectorIn dications:Weigh t Loss Management for Obese Patient (BMI >= 30) Inject 0.5 mL (0.5 mg total) under the skin every 7 days Wednesday Active cholecalciferol (VITAMIN D-3) 2000 unit tablet Take by mouth daily Active gabapentin (NEURONTIN) 100 mg capsule Take 1 capsule (100 mg total) by mouth 2 (two) times a day 08/09/2024 Active isavuconazonium (CRESEMBA) 186 mg capsuleIndicati ons:disseminate d fungal infection. Take 2 capsules (372 mg total) by mouth daily 180 capsule 3 09/26/2024 09/26/19 26 Active Active Problems Problem Noted Date Diagnosed Date Edema of lower extremity 09/07/2024 Assessment & Plan (09/07/2024 2:33 PM TITLE I ASSISTANT): Impression: Patient complains of bilateral lower extremity edema with her right lower extremity worse than the left. Patient complains of clear drainage from her right lower extremity the past 2-3 months. She denies any symptoms of claudication, ischemic rest pain or open ulcerations. Patient does not utilize compression therapy. Patient underwent a venous duplex scan in July 2024 which was negative for DVTs. Plan: Recommend patient to utilize compression therapy and leg elevation for edema control. -prescription for medical grade compression stockings given to patient to fill at [facility]. -Patient to follow-up as needed. Nonsmoker 08/29/2024 Restless legs 04/18/2024 Moderate persistent asthma without complication 03/16/2024 Mediastinal lymphadenopathy 01/14/2024 Multiple pulmonary nodules 01/14/2024 Chronic fatigue 01/14/2024 BMI 32.0-32.9,adult 01/14/2024 Social History Tobacco Use Types Packs/Day Years Used Date Smoking Tobacco: Never Smokeless Tobacco: Never Tobacco Cessation:Counseling Given: Not Answered AUDIT-C Answer Date Recorded Q1: How often do you have a drink containing alc ohol? Monthly or less 04/28/2024 Q2: How many drinks containi ng alcohol do you have on a typical day when you are drinking? 1 or 2 04/28/2024 Q3: How often do you have si x or more drinks on one occasion? Never 04/28/2024 Personal Safety Answer Date Recorded Have you ever been in or are you currently in a harmful physical or emotional relationship or is someone making you feel afraid or unsafe? Denies 04/28/2024 Comments No Sex and Gender Information Value Date Recorded Sex Assigned at Not on file Legal Sex Female 1:40 PM TITLE I ASSISTANT Gender Identity Not on file Sexual Orientation Not on file Last Filed Vital Signs Vital Sign Reading Time Taken Comments Blood Pressure 131/73 09/26/2024 2:21 PM TITLE I ASSISTANT Pulse 71 09/26/2024 2:21 PM TITLE I ASSISTANT Temperature 36.6 C (97.9 F) 09/26/2024 2:21 PM TITLE I ASSISTANT Respiratory Rate 18 08/29/2024 8:37 AM TITLE I ASSISTANT Oxygen Saturation 100% 09/26/2024 2:21 PM TITLE I ASSISTANT Inhaled Oxygen Concentration - - Weight 85.9 kg (189 lb 4.8 oz) 09/26/2024 2:21 P M TITLE I ASSISTANT Height 160 cm (5' 2.99 ) 09/26/2024 2:21 PM TITLE I ASSISTANT Body Mass Index 33.54 09/26/2024 2:21 PM TITLE I ASSISTANT Plan of Treatment Not on file Procedures Procedure Name Priority Date/Time Associated Diagnosis Comments EGFR Routine 09/26/2024 2:46 PM TITLE I ASSISTANT Fungal infection DIFFERENTIAL AUTO Routine 09/26/2024 2:4 6 PM TITLE I ASSISTANT Fungal infection CBC WITH AUTO DIFFERENTIAL Routine 09/26/2024 2:46 PM TITLE I ASSISTANT Fungal infection COMPREHENSIVE METABOLIC PANEL Routine 09/26/2024 2:46 PM TITLE I ASSISTANT Fungal infection HIV 1/2 ANTIBODY PLUS P24 ANTIGEN Routine 09/26/2024 2:46 PM TITLE I ASSISTANT Fungal infection CRYPTOCOCCAL ANTIGEN, SERUM Routine 09/26/2024 2:44 PM TITLE I ASSISTANT Fungal infection CT CHEST W CONTRAST Schedule Routine, Read Routine (OP Routine) 09/14/2024 8:29 AM TITLE I ASSISTANT Mediastinal lymphadenopathy from Last 3 Months Results * eGFR (09/26/2024 2:46 PM TITLE I ASSISTANT) Pathologist [facility] eGFR 88 >=60 mL/min/1. 73 m2 Comment: Interpretive Data Reference Interval Normal >/= 90 mL/min/1.73m2 Mildly decreased* 60 - 89 mL/min/1.73m2 Mildly to moderately decreased 45 - 59 mL/min/1.73m2 Moderately to severely decreased 30 - 44 mL/min/1.73m2 Severely decreased 15 - 29 mL/min/1.73m2 Kidney Failure < 15 mL/min/1.73m2 *Relative to young adult level Estimated glomerular filtration rate is determined by the 2020 CKD-EPI equation recommended by the National Kidney Foundation (A Unifying Approach to GFR Estimation: Recommendations of the NKF-ASK Task Force on Reassessing the Inclusion of Race in Diagnosing Kidney Disease, JASN 2020). The CKD-EPI equation should not be used for patients with unstable renal function and has not been validated in children and those over 70. Current interpretive data was last reviewed 2021. Blood 09/26/2024 2:46 PM TITLE I ASSISTANT 09/26/2024 7:45 PM TITLE I ASSISTANT us Sesar Durham MD LAB BLOOD ORDERABLES Final Result [facility] Department [place] [address] * Differential, auto (09/26/2024 2:46 PM TITLE I ASSISTANT) Pathologist [facility] Neutrophil abs 3.2 1.5 - 6.5 K/cumm Imm gran abs 0.0 0.0 - 0.1 K/cumm [facility] Lymphocyte abs 2.4 0.8 - 3.3 K/cumm [facility] Monocyte abs 0.5 0.2 - 0.8 K/cumm [facility] Eosinophil abs 0.1 0.0 - 0.5 K/cumm [facility] Basophil abs 0.1 0.0 - 0.1 K/cumm [facility] Neutrophil pct 50.1 % [facility] Comment: Interpretive Data Percent cell count reference ranges are not reported, since discordance with absolute values may lead to misinterpretation of CBC data. Current Interpretive Data was last revised on 2017. Imm gran pct 0.2 % [facility] Comment: Interpretive Data Percent cell count reference ranges are not reported, since discordance with absolute values may lead to misinterpretation of CBC data. Current Interpretive Data was last revised on 2017. Lymphocyte pct 37.9 % [facility] Comment: Interpretive Data Percent cell count reference ranges are not reported, since discordance with absolute values may lead to misinterpretation of CBC data. Current Interpretive Data was last revised on 2017. Monocyte pct 8.6 % [facility] Comment: Interpretive Data Percent cell count reference ranges are not reported, since discordance with absolute values may lead to misinterpretation of CBC data. Current Interpretive Data was last revised on 2017. Eosinophil pct 2.2 % [facility] Comment: Interpretive Data Percent cell count reference ranges are not reported, since discordance with absolute values may lead to misinterpretation of CBC data. Current Interpretive Data was last revised on 2017. Basophil pct 1.0 % [facility] Comment: Interpretive Data Percent cell count reference ranges are not reported, since discordance with absolute values may lead to misinterpretation of CBC data. Current Interpretive Data was last revised on 2017. Blood 09/26/2024 2:46 PM TITLE I ASSISTANT 09/26/2024 7:45 PM TITLE I ASSISTANT us Sesar Durham MD LAB BLOOD ORDERABLES Final Result [facility] Department [place] [address] * HIV 1/2 Antibody plus p24 Antigen Blood (09/26/2024 2:46 PM TITLE I ASSISTANT) Pathologist [facility] HIV 1/2 ab + p24 ag Nonreactive Nonreactive Comment:Nonreactive for HIV- 1 antigen and HIV-1/HIV-2 antibodies. No laboratory evidence of HIV infection. If acute HIV infection is suspected, consider testing for HIV-1 RNA. Current interpretive data was last revised on 22. Blood 09/26/2024 2:46 PM TITLE I ASSISTANT 09/26/2024 7:45 PM TITLE I ASSISTANT Sesar Durham MD LAB MICROBIOLOGY - GENERAL ORDERABLES Final Result Performing Organization Address City/[facility]/ZIP Co de Phone Number [facility] Department [place] [email or web address] [address] * (ABNORMAL) CBC with auto differential (09/26/2024 2:46 PM TITLE I ASSISTANT) Pathologist [facility] WBC 6.3 3.8 - 9.9 K/cumm Hgb 12.5 11.9 - 15.5 g/dL [facility] Hct 38.8 35.6 - 45.5 % [facility] Plt 297 150 - 400 K/cumm [facility] MPV 11.2 9.1 - 12.[address] [facility] RBC 4.34 3.90 - 5.20 M/cumm [facility] MCV 89.4 81.3 - 96.[address] [facility] MCH 28.8 27.1 - 33.[address] [facility] MCHC 32.2(L) 32.3 - 35.7 g/dL [facility] RDW CV 13.4 11.1 - 14.9 % [facility] RDW SD 44.1 35.7 - 48.[address] [facility] NRBC abs 0.00 0.00 - 0.01 K/cumm [facility] Blood 09/26/2024 2:46 PM TITLE I ASSISTANT 09/26/2024 7:45 PM TITLE I ASSISTANT us Sesar Durham MD LAB BLOOD ORDERABLES Final Result Performing Organization Address City/[facility] Co de Phone Number [facility] Department [place] [address] * (ABNORMAL) Comprehensive metabolic panel (09/26/2024 2:46 PM TITLE I ASSISTANT) Sodium 144 135 - 145 mmol/L Potassium, pl 4.3 3.3 - 4.9 mmol/L [facility] Chloride 105 97 - 110 mmol/L [facility] CO2 29 22 - 32 mmol/L [facility] Anion gap 10 2 - 15 mmol/L [facility] BUN 11 6 - 25 mg/dL [facility] Creatinine 0.81 0.60 - 1.10 mg/dL [facility] Glucose 58(L) 70 - 199 mg/dL [facility] Comment: Interpretive Data Fasting glucose >/= 126 mg/dl is diagnostic for diabetes. Fasting is defined as no caloric intake for at least 8 hours. Fasting glucose between 100 mg/dl to 125 mg/dl is diagnostic of prediabetes. In a patient with classic symptoms of hyperglycemia or hyperglycemic crisis, a random glucose >/= 200 mg/dl is diagnostic for diabetes. In the absence of unequivocal hyperglycemia, results should be confirmed by repeat testing. The classification and Diagnosis of Diabetes Diabetes Care 2021; 46: S19-S40. Current interpretive data was last revised 2022. Calcium 9.2 8.5 - 10.3 mg/dL [facility] Bilirubin, total <0.2 0.1 - 1.2 mg/dL [facility] Comment:Reviewed Protein, pl 7.4 6.5 - 8.5 g/dL [facility] Albumin 4.0 3.5 - 5.0 g/dL [facility] Alk phos 93 40 - 130 Units/L [facility] ALT 59(H) 7 - 45 Units/L [facility] Comment:Repeated and Verifie d AST 44 10 - 45 Units/L [facility] Blood 09/26/2024 2:46 PM TITLE I ASSISTANT 09/26/2024 7:45 PM TITLE I ASSISTANT us Sesar Durham MD LAB BLOOD ORDERABLES Final Result [facility] Department [place] [address] * Cryptococcal Antigen, Serum Blood (09/26/2024 2:44 PM TITLE I ASSISTANT) [facility] Cryptococcus ag, Serum Negative Negative Comment: The cryptococcal antigen test was performed using the IMMY CrAg Lateral Flow Assay. This assay is FDA cleared for serum and CSF specimens and for the detection of Cryptococcus neoformans and Cryptococcus gattii. If the result is positive, the specimen will be titered and reported from less than 1:5 to greater than or equal to 1:2560. This assay does not distinguish between C. neoformans and C. gattii. Testing hemolyzed serum samples may lead to false negatives. Current interpretive data last revised 2018. Blood 09/26/2024 2:44 PM TITLE I ASSISTANT 09/26/2024 8:01 PM TITLE I ASSISTANT us Sesar Durham MD LAB MICROBIOLOGY - GENERAL ORDERABLES Final Result [facility] Department [place] [address] * CT chest with contrast (09/14/2024 8:29 AM TITLE I ASSISTANT) Anatomical Region Laterality Modality Body N/A Computed Tomogra phy 09/14/2024 9:02 AM TITLE I ASSISTANT Impressions 09/14/2024 10:37 AM TITLE I ASSISTANT 1. No change in mediastinal lymphadenopathy other than slightly increased calcification in the right mediastinal lymph nodes with the appearance of histoplasmosis although there may be an element of fibrosing mediastinitis given occlusion of the right upper pulmonary vein and right pulmonary artery. 2. Nodules seen on the previous study are similar in size and distribution. Of note, there is a nodule in the right lower lobe with satellite lesions suggestive of granulomatous disease. 3. Groundglass nodularity in the right upper lobe is favored to be secondary to pulmonary edema from occlusion of the superior pulmonary vein. 4. Likewise, the new nodule in the right upper lobe with ill-defined groundglass could represent a nodular form of pulmonary edema. Dictated by: Jordan Bustamante M.D. The radiology attending physician has personally reviewed this study, and had reviewed and/or edited this written report and agrees with it. Electronically signed by: Simón Pepe M.D. Narrative 09/14/2024 10:37 AM TITLE I ASSISTANT EXAMINATION: CT CHEST W CONTRAST HISTORY: 49-year-old woman with mediastinal lymphadenopathy and pulmonary nodules treated with 2 months of antifungal therapy without significant improvement. TECHNIQUE: Transaxial computed tomographic images of the chest were obtained with intravenous contrast according to the standard protocol after the uneventful administration of 68 mL Opti-Ray 350 intravenous contrast. COMPARISON: CT 04/15/2024 FINDINGS: Previously seen, diffuse nodularity of the right lung is not significant changed. Although, there is a new nodule in the right upper lobe measuring 1.3 x 1.0 cm (table position -1103.4). Of note, in the right lower lobe there is a 0.9 cm nodule with multiple satellite nodules (table position -991.4). Similar mediastinal and right hilar lymphadenopathy, with increasing calcification. 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 No pneumothorax, pleural effusion, or consolidation. The heart size is normal without pericardial effusion. No supraclavicular or axillary lymphadenopathy. The partially imaged upper abdomen there are postsurgical changes of sleeve gastrectomy. Procedure Note Simón Pepe MD - 09/14/2024 EXAMINATION: CT CHEST W CONTRAST HISTORY: 49-year-old woman with mediastinal lymphadenopathy and pulmonary nodules treated with 2 months of antifungal therapy without significant improvement. TECHNIQUE: Transaxial computed tomographic images of the chest were obtained with intravenous contrast according to the standard protocol after the uneventful administration of 68 mL Opti-Ray 350 intravenous contrast. COMPARISON: CT 04/15/2024 FINDINGS: Previously seen, diffuse nodularity of the right lung is not significant changed. Although, there is a new nodule in the right upper lobe measuring 1.3 x 1.0 cm (table position -1103.4). Of note, in the right lower lobe there is a 0.9 cm nodule with multiple satellite nodules (table position -991.4). Similar mediastinal and right hilar lymphadenopathy, with increasing calcification. 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 No pneumothorax, pleural effusion, or consolidation. The heart size is normal without pericardial effusion. No supraclavicular or axillary lymphadenopathy. The partially imaged upper abdomen there are postsurgical changes of sleeve gastrectomy. IMPRESSION: 1. No change in mediastinal lymphadenopathy other than slightly increased calcification in the right mediastinal lymph nodes with the appearance of histoplasmosis although there may be an element of fibrosing mediastinitis given occlusion of the right upper pulmonary vein and right pulmonary artery. 2. Nodules seen on the previous study are similar in size and distribution. Of note, there is a nodule in the right lower lobe with satellite lesions suggestive of granulomatous disease. 3. Groundglass nodularity in the right upper lobe is favored to be secondary to pulmonary edema from occlusion of the superior pulmonary vein. 4. Likewise, the new nodule in the right upper lobe with ill-defined groundglass could represent a nodular form of pulmonary edema. Dictated by: Jordan Bustamante M.D. The radiology attending physician has personally reviewed this study, and had reviewed and/or edited this written report and agrees with it. Electronically signed by: Simón Pepe M.D. Sesar Durham MD IMG CT PROCEDURES Final Re sult from Last 3 Months Insurance [employer] [facility] [employer] Address: [address] [place] [address] [employer] [facility] Member Subscriber Plan / Payer (Ef fective 2018-Present) Name:Patti Shore Relation to Subscriber:Spouse Name:SILVIANODEVON Misbah Date of :1982 (Home) Address: [address] [place] [address] Payer ID:[id number] (NAIC) Type: OTHER Address: [address] [place] [address] [place] [address] [facility] [employer] Address: [address] [place] [address] [facility] [employer] Address: [facility] [id number] [place] [address] Care Teams Sinker Puller Relationship Specialty Start Date End Date Elliott Shea MD [address] [place] [address] PCP - General Family Practice 07/20/24 Elliott Shea MD [address] [place] [address] Family Practice 07/20/24 Maryjo Damon MD [address] [facility] [place] [address] Consulting Physician Pulmonary Disease 03/17/24 Sesar Durham MD [address] [place] [address] Consulting Physician Infectious Diseases 07/11/24
--- OUTSIDE RECORDS SUMMARY | 2024-12-07 10:20 | XMS_ITS | CONTINUITY OF CARE DOCUMENT ---
Author Name brandy nava Address Unknown Organization [facility] Address [address] [facility] [facility] [place] [address] Phone [phone] Care Team Providers Care Mixing House Operator Name Role Phone brandy nava Unavailable Unavailable INSURANCE PROVIDERS Payer name Policy type / Coverage type [place] [employer] party ID [id number] MEDICAID (2) Medicaid [id number]
--- OUTSIDE RECORDS SUMMARY | 2024-12-07 10:20 | XMS_ITS | Clinical Summary ---
Author Organization [facility] Address [address] [place] [address] Care Team Providers Care Assignment Editor Name Role Phone Elliott Shea MD Primary Care Provider [phone] Elliott Shea MD Unavailable [phone] Maryjo Damon MD Unavailable [phone] Sesar Durham MD Unavailable [phone] Allergies No known active allergies Medications cyanocobalamin [...] 09/07/2024 Assessment & Plan (09/07/2024 2:33 PM ORACLE HRMS CONSULTANT): Impression: Patient complains of bilateral lower extremity [...] stockings given to patient to fill at [facility]. -Patient to follow-up as needed. Nonsmoker 08/29/2024 Restless legs 04/18/2024 Moderate persistent asthma without complication 03/16/2024 Mediastinal lymphadenopathy 01/14/2024 Multiple pulmonary nodules 01/14/2024 Chronic fatigue 01/14/2024 BMI 32.0-32.9,adult 01/14/2024 Encounters Date Type Department Care Team Description 09/26/2024 6:29 PM ORACLE HRMS CONSULTANT - 09/26/2024 11:59 PM ORACLE HRMS CONSULTANT Hospital Encounter [facility] [address] [place] [address] Discharge Disposition: Discharge to home or self care 09/26/2024 2:40 PM ORACLE HRMS CONSULTANT Office Visit [facility] [place] [address] [address] Sesar Durham MD Fungal infection (Primary Dx); Encounter for screening examination for sexually transmitted disease; Multiple pulmonary nodules; Mediastinal lymphadenopathy 09/14/2024 7:51 AM ORACLE HRMS CONSULTANT - 09/14/2024 11:59 PM ORACLE HRMS CONSULTANT Hospital Encounter [facility] [address] [place] [address] Sesar Durham MD Mediastinal lymphadenopathy Discharge Disposition: Discharge to home or self care from Last 3 Months Surgical History Surgery Date Site/Laterality Comments ENDOMETRIAL ABLATION TUBAL LIGATION BRONCHOSCOPY 08/02/2023 - 08/01/2024 x2 Medical History Medical History Date Comments Obesity Pulmonary nodules Mediastinal lymphadenopathy Food intolerance Asthma Social History Tobacco Use Types Packs/Day Years [...] on file Legal Sex Female 1:40 PM ORACLE HRMS CONSULTANT Gender Identity Not on file Sexual Orientation Not on file Obstetrics History Last Filed Vital Signs Vital Sign Reading Time Taken Comments Blood Pressure 131/73 09/26/2024 2:21 PM ORACLE HRMS CONSULTANT Pulse 71 09/26/2024 2:21 PM ORACLE HRMS CONSULTANT Temperature 36.6 C (97.9 F) 09/26/2024 2:21 PM ORACLE HRMS CONSULTANT Respiratory Rate 18 08/29/2024 8:37 AM ORACLE HRMS CONSULTANT Oxygen Saturation 100% 09/26/2024 2:21 PM ORACLE HRMS CONSULTANT Inhaled Oxygen Concentration - - Weight 85.9 kg (189 lb 4.8 oz) 09/26/2024 2:21 P M ORACLE HRMS CONSULTANT Height 160 cm (5' 2.99 ) 09/26/2024 2:21 PM ORACLE HRMS CONSULTANT Body Mass Index 33.54 09/26/2024 2:21 PM ORACLE HRMS CONSULTANT Plan of Treatment Health Maintenance Due Date Last Done Comments Breast Cancer Screening-Mammogram 1974 Cervical Cancer Screening 1974 Colon Cancer Screening-Colonoscopy 1974 Depression Screening 1974 Hepatitis C Screening 1974 DTaP/Tdap/Td Vaccine (1 - Tdap) 1985 Hepatitis B Screening 1992 Regular Well Visit/Exam 18-64 1992 Pneumococcal vaccine <65 (1 of 2 - PCV) 1993 Covid-19 Vaccine (4 - season) 2024 06/05/2021, 10/22/2020, 10/01/2020 Zoster Vaccine (1 of 2) 2024 Influenza Vaccine (Season Ended) 2025 Procedures Procedure Name Priority Date/Time Associated Diagnosis Comments EGFR Routine 09/26/2024 2:46 PM ORACLE HRMS CONSULTANT Fungal infection DIFFERENTIAL AUTO Routine 09/26/2024 2:4 6 PM ORACLE HRMS CONSULTANT Fungal infection CBC WITH AUTO DIFFERENTIAL Routine 09/26/2024 2:46 PM ORACLE HRMS CONSULTANT Fungal infection COMPREHENSIVE METABOLIC PANEL Routine 09/26/2024 2:46 PM ORACLE HRMS CONSULTANT Fungal infection HIV 1/2 ANTIBODY PLUS P24 ANTIGEN Routine 09/26/2024 2:46 PM ORACLE HRMS CONSULTANT Fungal infection CRYPTOCOCCAL ANTIGEN, SERUM Routine 09/26/2024 2:44 PM ORACLE HRMS CONSULTANT Fungal infection CT CHEST W CONTRAST Schedule Routine, Read Routine (OP Routine) 09/14/2024 8:29 AM ORACLE HRMS CONSULTANT Mediastinal lymphadenopathy from Last 3 Months Results * eGFR (09/26/2024 2:46 PM ORACLE HRMS CONSULTANT) eGFR 88 >=60 mL/min/1. 73 m2 Comment: [...] of Race in Diagnosing Kidney Disease, JASN 202). The CKD-EPI equation should not be used for patients with unstable renal function and has not been validated in children and those over 70. Current interpretive data was last reviewed 2021. Blood 09/26/2024 2:46 PM ORACLE HRMS CONSULTANT 09/26/2024 7:45 PM ORACLE HRMS CONSULTANT us Sesar Durham MD LAB BLOOD ORDERABLES Final Result [facility] Department [place] [address] * Differential, auto (09/26/2024 2:46 PM ORACLE HRMS CONSULTANT) Neutrophil abs 3.2 1.5 - 6.5 K/cumm Imm gran abs 0.0 0.0 - 0.1 K/cumm [facility] Lymphocyte abs 2.4 0.8 - 3.3 K/cumm [facility] Monocyte abs 0.5 0.2 - 0.8 K/cumm [facility] Eosinophil abs 0.1 0.0 - 0.5 K/cumm [facility] Basophil abs 0.1 0.0 - 0.1 K/cumm [facility] Neutrophil pct 50.1 % [facility] Comment: Interpretive Data Percent cell count reference ranges are not reported, since discordance with absolute values may lead to misinterpretation of CBC data. Current Interpretive Data was last revised on 2017. Imm gran pct 0.2 % [facility] Comment: Interpretive Data Percent cell count reference ranges are not reported, since discordance with absolute values may lead to misinterpretation of CBC data. Current Interpretive Data was last revised on 2017. Lymphocyte pct 37.9 % [facility] Comment: Interpretive Data Percent cell count reference ranges are not reported, since discordance with absolute values may lead to misinterpretation of CBC data. Current Interpretive Data was last revised on 2017. Monocyte pct 8.6 % [facility] Comment: Interpretive Data Percent cell count reference ranges are not reported, since discordance with absolute values may lead to misinterpretation of CBC data. Current Interpretive Data was last revised on 2017. Eosinophil pct 2.2 % [facility] Comment: Interpretive Data Percent cell count reference ranges are not reported, since discordance with absolute values may lead to misinterpretation of CBC data. Current Interpretive Data was last revised on 2017. Basophil pct 1.0 % [facility] Comment: Interpretive Data Percent cell count reference ranges are not reported, since discordance with absolute values may lead to misinterpretation of CBC data. Current Interpretive Data was last revised on 2017. Blood 09/26/2024 2:46 PM ORACLE HRMS CONSULTANT 09/26/2024 7:45 PM ORACLE HRMS CONSULTANT Sesar Durham MD LAB BLOOD ORDERABLES Final Result Performing Organization Address [facility] [place] [address] * HIV 1/2 Antibody plus p24 Antigen Blood (09/26/2024 2:46 PM ORACLE HRMS CONSULTANT) [facility] HIV 1/2 ab + p24 ag Nonreactive Nonreactive Comment:Nonreactive for HIV- 1 antigen and HIV-1/HIV-2 antibodies. No laboratory evidence of HIV infection. If acute HIV infection is suspected, consider testing for HIV-1 RNA. Current interpretive data was last revised on 22. Blood 09/26/2024 2:46 PM ORACLE HRMS CONSULTANT 09/26/2024 7:45 PM ORACLE HRMS CONSULTANT Sesar Durham MD LAB MICROBIOLOGY - GENERAL ORDERABLES Final Result Performing Organization Address [facility] [place] [address] * (ABNORMAL) CBC with auto differential (09/26/2024 2:46 PM ORACLE HRMS CONSULTANT) [facility] WBC 6.3 3.8 - 9.9 K/cumm Hgb 12.5 11.9 - 15.5 g/dL [facility] Hct 38.8 35.6 - 45.5 % [facility] Plt 297 150 - 400 K/cumm [facility] MPV 11.2 9.1 - 12.3 fL [facility] RBC 4.34 3.90 - 5.20 M/cumm [facility] MCV 89.4 81.3 - 96.4 fL [facility] MCH 28.8 27.1 - 33.3 pg [facility] MCHC 32.2(L) 32.3 - 35.7 g/dL [facility] RDW CV 13.4 11.1 - 14.9 % [facility] RDW SD 44.1 35.7 - 48.1 fL [facility] NRBC abs 0.00 0.00 - 0.01 K/cumm [facility] Blood 09/26/2024 2:46 PM ORACLE HRMS CONSULTANT 09/26/2024 7:45 PM ORACLE HRMS CONSULTANT us Sesar Durham MD LAB BLOOD ORDERABLES Final Result [facility] Department [place] [address] * (ABNORMAL) Comprehensive metabolic panel (09/26/2024 2:46 PM ORACLE HRMS CONSULTANT) Sodium 144 135 - 145 mmol/L Potassium, pl 4.3 3.3 - 4.9 mmol/L [facility] Chloride 105 97 - 110 mmol/L [facility] CO2 29 22 - 32 mmol/L [facility] Anion gap 10 2 - 15 mmol/L [facility] BUN 11 6 - 25 mg/dL [facility] Creatinine 0.81 0.60 - 1.10 mg/dL [facility] Glucose 58(L) 70 - 199 mg/dL [facility] Comment: Interpretive Data Fasting glucose >/= [...] classification and Diagnosis of Diabetes Diabetes Care 202; 46: S19-S40. Current interpretive data was last revised 2022. Calcium 9.2 8.5 - 10.3 mg/dL [facility] Bilirubin, total <0.2 0.1 - 1.2 mg/dL [facility] Comment:Reviewed Protein, pl 7.4 6.5 - 8.5 g/dL [facility] Albumin 4.0 3.5 - 5.0 g/dL [facility] Alk phos 93 40 - 130 Units/L [facility] ALT 59(H) 7 - 45 Units/L [facility] Comment:Repeated and Verifie d AST 44 10 - 45 Units/L [facility] Blood 09/26/2024 2:46 PM ORACLE HRMS CONSULTANT 09/26/2024 7:45 PM ORACLE HRMS CONSULTANT Sesar Durham MD LAB BLOOD ORDERABLES Final Result Performing Organization Address City/[facility]/ZIP Co de Phone Number [facility] Department [place] [address] * Cryptococcal Antigen, Serum Blood (09/26/2024 2:44 PM ORACLE HRMS CONSULTANT) Cryptococcus ag, Serum Negative Negative Comment: The [...] last revised 2018. Blood 09/26/2024 2:44 PM ORACLE HRMS CONSULTANT 09/26/2024 8:01 PM ORACLE HRMS CONSULTANT Sesar Durham MD LAB MICROBIOLOGY - GENERAL ORDERABLES Final Result [facility] Department [place] [address] * CT chest with contrast (09/14/2024 8:29 AM ORACLE HRMS CONSULTANT) Anatomical Region Laterality Modality Body N/A Computed Tomogra phy 09/14/2024 9:02 AM ORACLE HRMS CONSULTANT Impressions 09/14/2024 10:37 AM ORACLE HRMS CONSULTANT 1. No change in mediastinal lymphadenopathy other [...] Simón Pepe M.D. Narrative 09/14/2024 10:37 AM ORACLE HRMS CONSULTANT EXAMINATION: CT CHEST W CONTRAST HISTORY: 49-year-old [...] Re sult from Last 3 Months Insurance [employer] [facility] [employer] Address: [address] [place] [address] [employer] [facility] [employer] Address: [facility] [id number] [place] [address] [facility] [employer] Address: [facility] [address] [place] [address] Care Teams Assignment Editor Relationship Specialty Start Date End Date Elliott Shea MD [address] [place] [address] PCP - General Family Practice 07/20/24 Elliott Shea MD [address] [place] [address] Family Practice 07/20/24 Maryjo Damon MD [address] [place] [address] Consulting Physician Pulmonary Disease 03/17/24 Sesar Durham MD [address] [place] [address] Consulting Physician Infectious Diseases 07/11/24
--- OUTSIDE RECORDS SUMMARY | 2024-12-07 10:20 | XMS_ITS | Clinical Summary ---
Author Organization [facility] [employer] Address [address] [place] [place] [address] Care Team Providers Care Tawer Name Role Phone Shun Browning MD Primary Care Provider [phone] Source Comments [facility],non-owned Affiliates and Associated Physician Practices is amultiple site organization consisting of ambulatory clinics and hospital sitesin [place], [place], [place] and [place]. This disclosure is being madepursuant to the Care Everywhere program and may not contain all information available regarding this patient. Last updated 18.[facility] [employer] Medications * Be aware that medications may not be up to date on this document. Alwaysverify current medications with the patient. lisinopril-hydro CHLOROthiazide (PRINZIDE; ZESTORETIC) 20-12.5 MG tablet TK 1 T PO D 1 12/03/2017 Active Active Problems No known active problems Family History Medical History Relation Name Comments Diabetes - Type 2 Mother Hypertension Mother Relation Name Status Comments Mother Social History Tobacco Use Types Packs/Day Years Used Date Smoking Tobacco: Never Smokeless Tobacco: Never Alcohol Use Standard Drinks/Week Comments No 0 (1 standard drink = 0.6 oz pur e alcohol) Comments Unknown Sex and Gender Information Value Date Recorded Sex Assigned at Not on file Legal Sex Female 6:25 PM PRIMARY CARE MD Gender Identity Not on file Sexual Orientation Not on file Last Filed Vital Signs Vital Sign Reading Time Taken Comments Blood Pressure 159/96 12/28/2017 8:36 AM CDT Pulse 67 12/28/2017 8:36 AM CDT Temperature 36.2 C (97.2 F) 12/28/2017 8:36 AM CDT Respiratory Rate - - Oxygen Saturation 99% 12/28/2017 8:36 AM CDT Inhaled Oxygen Concentration - - Weight 117 kg (258 lb) 12/28/2017 8:36 AM CDT Height 160 cm (5' 3 ) 12/28/2017 8:36 AM CDT Body Mass Index 45.7 12/28/2017 8:36 AM CDT Plan of Treatment Health Maintenance Due Date Last Done Comments COLOGUARD (AGES 45-75) - COL ON CA SCREENING 1974 COLON MONITORING 1974 COLONOSCOPY - COLON CA SCREENING 1974 CT COLONOGRAPHY - COLON CA SCREENING 1974 Colorectal Cancer Screening 1974 FIT - COLON CA SCREENING 1974 FLEX SIG - COLON CA SCREENING 1974 LIPID TESTING 1974 MAMMOGRAM 1974 HIV SCREENING 1989 HEPATITIS C SCREENING 04/12/1992 DTAP/TDAP/TD VACCINES (1 - Tdap) 1993 HEPATITIS B VACCINE (1 of 3 - 19+ 3-dose series) 1993 SCREENING FOR DIABETES 12/28/2017 COVID-19 VACCINE (1 - 2023-2 5 season) 2024 PNEUMOCOCCAL VACCINE 50+ (1 of 1 - PCV) 2024 ZOSTER VACCINE (1 of 2) 2024 DEPRESSION SCREENING 08/02/2024 INFLUENZA VACCINE (Season Ended) 2025 HIB VACCINE Aged Out No longer eligi ble based on patient's age to complete this topic HPV VACCINE Aged Out No longer eligi ble based on patient's age to complete this topic MENINGOCOCCAL (Group B) VACC INE SHARED DECISION-MAKING Aged Out No longer eligibl e based on patient's age to complete this topic MENINGOCOCCAL GROUPS A/C/Y/W VACCINE Aged Out No longer eligible b ased on patient's age to complete this topic Insurance ERR[employer] Member Subscriber Plan / Payer (Ef fective 2018-Present) Name:Juarez Shore Relation to Subscriber:Spouse Name:DEVON SHORE Subscriber ID:Not on file (Home) Address: [id number] [place] [address] Payer ID:[id number] (NAIC) Type:PPO Address: [address] [place] [id number] [employer] Care Teams Tawer Relationship Specialty Start Date End Date Shun Browning MD [address] [facility] [address] [place] [address] PCP - General 08/19/08
--- OUTSIDE RECORDS SUMMARY | 2024-12-07 10:20 | XMS_ITS | Encounter Summary ---
Author Organization [facility] Healthcare Address [address] [place] [address] Care Team Providers Care Java Lead Architect Name Role Phone Elliott Shea MD Primary Care Provider [phone] Elliott Shea MD Primary Care Provider [phone] Elliott Shea MD Unavailable [phone] Maryjo Damon MD Unavailable [phone] Sesar Durham MD Unavailable [phone] Encounter Details Date Type Department Care Team (Late st Contact Info) Description 04/19/2024 Orders Only [facility] PreAdmission Testing [address] [place] [address] Joy Mauro, RN Social History Tobacco Use Types Packs/Day Years Used Date Smoking Tobacco: Never Smokeless Tobacco: Never AUDIT-C Answer Date Recorded Frequency of Alcohol Consumption Not on file 04/19/2024 Q2: How many drinks containi ng alcohol do you have on a typical day when you are drinking? Patient does not drink Frequency of Binge Drinking Not on file 04/02 Personal Safety Answer Date Recorded Getting School Help Needed Not on file 10/15 Comments No Sex and Gender Information Value Date Recorded Sex Assigned at Not on file Legal Sex Female 1:40 PM METAL MIXER Gender Identity Not on file Sexual Orientation Not on file documented as of this encounter Functional Status documented as of this encounter Plan of Treatment Not on file documented as of this encounter Visit Diagnoses Not on filedocumented in this encounter Care Teams Java Lead Architect Relationship Specialty Start Date End Date Elliott Shea MD PCP - General [facility] Practice 02/16/24 07/19/24 Elliott Shea MD [address] [place], [place] [id number] PCP - [facility] Practice 07/20/24 Elliott Shea MD [facility] Practice 07/20/24 Maryjo Damon MD [address] [place] [address] Consulting Physician Pulmonary Disease 03/17/24 Sesar Durham MD [address] [place] [address] Consulting Physician Infectious Diseases 07/11/24 documented as of this encounter
[2024-12-07 10:54] LABS: Hematocrit 41.9 % (37.0-47.0); Hemoglobin 13.4 g/dL (12.0-15.0); Mean Corpuscular Hemoglobin 28.5 pg (26-34); Mean Platelet Volume 10.8 fl (7.4-10.4); Platelet Count Result 248 k/mm3 (150-375); Red Blood Count 4.71 M/mm3 (4.2-5.4); Red Cell Distribution Width 13.4 % (11.5-14.5); White Blood Count 5.3 K/mm3 (4.5-10.0)
[2024-12-07 11:07] LABS: Alanine Aminotransferase 17 U/L (6-35); Albumin Level 4.3 g/dL (3.5-5.1); Alkaline Phosphatase 61 U/L (38-126); Anion Gap 6 mmol/L (4-12); Aspartate Amino Transferase 22 U/L (14-36); Bilirubin,Total 0.5 mg/dL (0.2-1.3); Blood Urea Nitrogen 7 mg/dL (7-17); Calcium 9.5 mg/dL (8.4-10.2); Carbon Dioxide 30 mmol/L (22-30); Chloride 106 mmol/L (98-107); Cholesterol 170 mg/dL (0-200); Estimated Glomerular Filt Rate > 60; Glucose 88 mg/dL (65-110); HDL Direct 54 mg/dL; Potassium 4.3 mmol/L (3.4-5.0); Sodium 142 mmol/L (137-145); Triglycerides 85 mg/dL (<150)
[2024-12-07 11:08] LABS: Iron 116 ug/dL (37-170)
[2024-12-07 11:17] LABS: Percent Iron Saturation 34 % (20-50)
[2024-12-07 11:18] LABS: LDL Cholesterol Direct 82 mg/dL
[2024-12-07 11:42] LABS: Ferritin 8.45 ng/mL (11.1-264)
== END 2024-12-07 10:04 | disposition home or self-care (01) ==
LOC: ANHLAB 10:06
PROVIDERS: PCP Family Medicine; Visit Provider Family Medicine
DX: Z00.00 Encounter for general adult medical examination without abnormal findings (principal); D64.9 Anemia, unspecified; G25.81 Restless legs syndrome; J43.9 Emphysema, unspecified; J98.4 Other disorders of lung; I10 Essential (primary) hypertension; E66.9 Obesity, unspecified; E55.9 Vitamin D deficiency, unspecified; R91.8 Other nonspecific abnormal finding of lung field
CPT/HCPCS: 36415; 80053; 80061; 82728; 83540; 83550; 85027

== ENCOUNTER 2025-01-07 11:56 | Emergency (ER) | payer OTHER, BC, SELFPAY ==
--- NOTE | ~2025-01-07 | XR_ITS ---
EXAM: XR hip LT 2V w AP pelvis, XR femur LT min 2V DATE: 01/07/2025 15:10 HISTORY: lateral hip pain, no injury . COMPARISON: X-ray pelvis and right hip 05/26/2024; CT cap 09/16/2023. FINDINGS: Normal mineralization. No fracture or dislocation. Left iliac wing and right acetabular ro of bone islands. No suspicious lytic or blastic lesion. Mild lumbar degenerative disc disease. Mild b ilateral hip and left knee osteoarthritis. Pelvic enthesopathy. Pelvic phleboliths. Quadriceps enthes opathy No erosion or periosteal change. Soft tissues within normal limits. IMPRESSION: No acute osseous finding in the pelvis or left hip. Reviewed, dictated and finalized at location K. IMPRESSION: No acute osseous finding in the pelvis or left hip.
[2025-01-07 11:57] VITALS: BP 154/99; PULSE 70; RESP 19; TEMP 36.4; O2SAT 98
--- OUTSIDE RECORDS SUMMARY | 2025-01-07 11:58 | XMS_ITS | Clinical Summary ---
Author Organization [facility] Address [address] [facility] [place] [address] Care Team Providers Care Oracle Brm Developer Name Role Phone Elliott Shea MD Primary Care Provider [phone] Allergies No known active allergies Medications LOMAIRA [...] 7:25 AM CDT Height 160 cm (5' 3) 11/23/2023 7:25 AM CDT Body Mass Index [...] Advance Directives For more information, please contact: [phone] * Full Code (Latest Code Status on [...] 12:53 PM 01/24/2019 4:55 PM Care Teams Oracle Brm Developer Relationship Specialty Start Date End Date Elliott Shea MD [address] [place] [address] PCP - General Family Practice 10/22/23
--- OUTSIDE RECORDS SUMMARY | 2025-01-07 11:58 | XMS_ITS | Encounter Summary ---
Author Organization [facility] Healthcare Address [address] [place] [address] Care Team Providers Care Banking Paralegal Name Role Phone Elliott Shea MD Primary Care Provider [phone] Elliott Shea MD Primary Care Provider [phone] Elliott Shea MD Unavailable [phone] Maryjo Damon MD Unavailable [phone] Sesar Durham MD Unavailable [phone] Encounter Details Date Type Department Care Team (Late st Contact Info) Description 04/19/2024 Orders Only [facility] PreAdmission Testing [address] [place] [address] Joy Mauro, RN Social History Tobacco Use [...] on file Legal Sex Female 1:40 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 Gender Identity Not on file Sexual Orientation Not on file documented as of this encounter Functional Status documented as of this encounter Plan of Treatment Not on file documented as of this encounter Visit Diagnoses Not on filedocumented in this encounter Care Teams Banking Paralegal Relationship Specialty Start Date End Date Elliott Shea MD PCP - General [facility] Practice 02/16/24 07/19/24 Elliott Shea MD [address] [place], [place] [id number] PCP - [facility] Practice 07/20/24 Elliott Shea MD [facility] Practice 07/20/24 Maryjo Damon MD [address] [place] [address] Consulting Physician Pulmonary Disease 03/17/24 Sesar Durham MD [address] [place] [address] Consulting Physician Infectious Diseases 07/11/24 documented as of this encounter
--- OUTSIDE RECORDS SUMMARY | 2025-01-07 11:58 | XMS_ITS | Referral Summary ---
Author Organization [facility] Address [address] [place] [address] Care Team Providers Care Director Of Real Estate Name Role Phone Elliott Shea MD Primary Care Provider [phone] Elliott Shea MD Unavailable [phone] Maryjo Damon MD Unavailable [phone] Sesar Durham MD Unavailable [phone] Allergies No known active allergies Medications cyanocobalamin [...] 09/07/2024 Assessment & Plan (09/07/2024 2:33 PM POLICE OFFICER): Impression: Patient complains of bilateral lower extremity [...] stockings given to patient to fill at [place] [facility]. -Patient to follow-up as needed. Nonsmoker [...] on file Legal Sex Female 1:40 PM POLICE OFFICER Gender Identity Not on file Sexual Orientation Not on file Last Filed Vital Signs Vital Sign Reading Time Taken Comments Blood Pressure 131/73 09/26/2024 2:21 PM POLICE OFFICER Pulse 71 09/26/2024 2:21 PM POLICE OFFICER Temperature 36.6 C (97.9 F) 09/26/2024 2:21 PM POLICE OFFICER Respiratory Rate 18 08/29/2024 8:37 AM POLICE OFFICER Oxygen Saturation 100% 09/26/2024 2:21 PM POLICE OFFICER Inhaled Oxygen Concentration - - Weight 85.9 kg (189 lb 4.8 oz) 09/26/2024 2:21 P M POLICE OFFICER Height 160 cm (5' 2.99) 09/26/2024 2:21 PM POLICE OFFICER Body Mass Index 33.54 09/26/2024 2:21 PM POLICE OFFICER Plan of Treatment Not on file Insurance [place] [facility] [employer] PLANS Address: [facility] [address] [place] [address] [place] [employer] [facility] [employer] Address: [facility] [address] [place] [address] [facility] [employer] Address: [facility] [address] [place] [address] Care Teams Director Of Real Estate Relationship Specialty Start Date End Date Elliott Shea MD [address] [place] [address] PCP - General Family Practice 07/20/24 Elliott Shea MD [address] [place] [address] Family Practice 07/20/24 Maryjo Damon MD [address] [place] [address] Consulting Physician Pulmonary Disease 03/17/24 Sesar Durham MD [address] [place] [address] Consulting Physician Infectious Diseases 07/11/24
--- OUTSIDE RECORDS SUMMARY | 2025-01-07 11:58 | XMS_ITS | Clinical Summary ---
Author Organization [facility] Center Address [address] [place] [address] Care Team Providers Care Associate Professor Plant Pathology Name Role Phone Elliott Shea MD Primary Care Provider [phone] Elliott Shea MD Unavailable [phone] Maryjo Damon MD Unavailable [phone] Sesar Durham MD Unavailable [phone] Allergies No known active allergies Medications [...] 09/07/2024 Assessment & Plan (09/07/2024 2:33 PM NAPHTHALENE OPERATOR): Impression: Patient complains of bilateral lower extremity [...] stockings given to patient to fill at [facility]. -Patient to follow-up as needed. Nonsmoker 08/29/2024 Restless legs 04/18/2024 Moderate persistent asthma without complication 03/16/2024 Mediastinal lymphadenopathy 01/14/2024 Multiple pulmonary nodules 01/14/2024 Chronic fatigue 01/14/2024 BMI 32.0-32.9,adult 01/14/2024 Surgical History Surgery Date Site/Laterality Comments ENDOMETRIAL [...] on file Legal Sex Female 1:40 PM NAPHTHALENE OPERATOR Gender Identity Not on file Sexual Orientation Not on file Obstetrics History Last Filed Vital Signs Vital Sign Reading Time Taken Comments Blood Pressure 131/73 09/26/2024 2:21 PM NAPHTHALENE OPERATOR Pulse 71 09/26/2024 2:21 PM NAPHTHALENE OPERATOR Temperature 36.6 C (97.9 F) 09/26/2024 2:21 PM NAPHTHALENE OPERATOR Respiratory Rate 18 08/29/2024 8:37 AM NAPHTHALENE OPERATOR Oxygen Saturation 100% 09/26/2024 2:21 PM NAPHTHALENE OPERATOR Inhaled Oxygen Concentration - - Weight 85.9 kg (189 lb 4.8 oz) 09/26/2024 2:21 P M NAPHTHALENE OPERATOR Height 160 cm (5' 2.99) 09/26/2024 2:21 PM NAPHTHALENE OPERATOR Body Mass Index 33.54 09/26/2024 2:21 PM NAPHTHALENE OPERATOR Plan of Treatment Health Maintenance Due Date [...] 2) 2024 Influenza Vaccine (Season Ended) 2025 Insurance [facility] [employer] [place] [facility] FORMERLY [facility] EMPLOYEE HEALTH PLANS Address: [address] [place] [address] [employer] [place] [facility] CIGNA [employer] [facility] EMPLOYEE HEALTH PLANS Address: [address] [place] [address] [facility] [employer]PL[employer]EE HE[employer] PLANS Address: [address] [place] [address] Care Teams Associate Professor Plant Pathology Relationship Specialty Start Date End Date Elliott Shea MD [address] [place] [address] PCP - General Family Practice 07/20/24 Elliott Shea MD [address] [place] [address] Family Practice 07/20/24 Maryjo Damon MD [address] [place] [address] Consulting Physician Pulmonary Disease 03/17/24 Sesar Durham MD [address] [place] [address] Consulting Physician Infectious Diseases 07/11/24
--- OUTSIDE RECORDS SUMMARY | 2025-01-07 11:58 | XMS_ITS | Clinical Summary ---
Author Organization [facility] Address [address] [place] [address] Phone Care Team Providers Care Building Certifier Name Role Phone Jordan Javier MD Primary Care Provider [phone] Allergies No known active allergies Medications lisinopril-hydro [...] 9:00 PM CDT Height 160 cm (5' 3) 01/15/2017 9:00 PM CDT Body Mass Index [...] patient's age to complete this topic Insurance [facility] MEDICAID [facility] Care Teams Building Certifier Relationship Specialty Start Date End Date Jordan Javier MD [address] [facility] [address] [place] [address] PCP - General Internal Medicine 01/15/17
--- OUTSIDE RECORDS SUMMARY | 2025-01-07 11:58 | XMS_ITS | Clinical Summary ---
Author Organization [facility] [employer] Address [address] [place] [address] Care Team Providers Care Business Management Specialist Name Role Phone Shun Browning MD Primary Care Provider [phone] Source Comments [facility],non-owned Affiliates and Associated Physician Practices is amultiple site organization consisting of ambulatory clinics and hospital sitesin [place], [place], [place] and [place]. This disclosure is being madepursuant to the Care Everywhere program and may not contain all information available regarding this patient. 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 [facility] [address] [place] [address] Payer ID:[id number] (NAIC) Type:PPO Address: [address] [place] [id number] [facility] Care Teams Business Management Specialist Relationship Specialty Start Date End Date Shun Browning MD [address] [facility] [address] [place] [address] PCP - General 08/19/08
--- OUTSIDE RECORDS SUMMARY | 2025-01-07 11:58 | XMS_ITS | CONTINUITY OF CARE DOCUMENT ---
Author Name brandy nava Address Unknown Organization [facility] Address [address] [place] [address] Phone [phone] Care Team Providers Care Measurement Technician Name Role Phone brandy nava Unavailable Unavailable INSURANCE PROVIDERS Payer name Policy type / Coverage type [employer] party ID [id number] MEDICAID (2) Medicaid [id number]
--- OUTSIDE RECORDS SUMMARY | 2025-01-07 11:58 | XMS_ITS | Continuity of Care Document ---
Author Organization [facility] Address [address] [facility] [place] [address] Phone Care Team Providers Care Sales Development Coordinator Name Role Phone Carroll Packer MD Unavailable Unavailable Allergies, Adverse Reactions, Alerts Substance Reaction Status Criticality No Known Allergies Active No Inform ation Medications Medication Instructions Dosage Effective Dates (start - stop) Status Comments folic acid 400 mcg tablet take 1 tablet by oral route every day 0.4 MG - Active Ventolin HFA 90 mcg/actuation aerosol inhaler inhale 2 puff by inhalation route every 4 - 6 hours as needed as needed - Active PRN for sob prednisone 20 mg tablet take 2 Tablet by oral route every day 40 MG - Active lisinopril 20 mg-hydrochlorothia zide 12.5 mg tablet [...] Diagnoses Date Provider Providers Copied on Encounter [facility], [address] [facility] [place], [address], [place] tel:[phone] [facility] No Information 9 Ochoa Singh [address], [place], [place], [address] , [place]. tel:[phone] OFFICE/OUTPA TIENT VISIT, EST [facility], [address], [place], [place], [address], [place] tel:[phone] [facility] folic1 (chief complaint) lung (chief complaint) neck pain1 (chief complaint) Body mass index (BMI) 45.0-49.9, adultFolate deficiencySarcoidos is of lungShortness of breath 9 Ochoa Singh [address], [place], [place], [address] , [place]. tel:[phone] Referring Provider: Ralph Cervantes [address], [place], [place], [address]. tel:[phone] PREV VISIT, EST, AGE 40-64 [facility], [address], [place], [place], [address], [place] tel:[phone] [facility] Physical (chief complaint) Encounter for general adult medical exam w abnormal findingsFolate deficiencyEssential (primary) hypertensionSarcoid osis of lungPain in unspecified handCervicalgia 8 Ochoa Singh [address], [place], [place], [address] , [place]. tel:[phone] Referring Provider: Ralph Cervantes [address], [place], [place], [address]. tel:[phone] PREV VISIT, EST, AGE 40-64 [facility], [address], [place], [place], [address], [place] tel:[phone] [facility] Medicine Physical (chief complaint) Encounter for general adult medical exam w abnormal findingsEssential (primary) hypertensionFolate deficiencySolitary lung noduleBody mass index (BMI) 45.0-49.9, adult Mar-0 8-201 [address], [place], [place], [address] , [place]. tel:[phone] Referring Provider: Ralph Cervantes [address], [place], [place], [address]. tel:[phone] OFFICE/OUTPA TIENT VISIT, EST [facility], [address], [place], [place], [address], [place] tel:[phone] [facility] HTN (chief complaint) folate1 (chief complaint) skin1 (chief complaint) Body mass index (BMI) 45.0-49.9, adultEssential (primary) hypertensionFolate deficiencyVitamin D deficiency, unspecified 8 Ochoa Hodges. [address], [place], [place], [address] , [place]. [phone] Referring Provider: Ralph Cervantes [address] [facility] [address], [place], [place], [address]. tel:[phone] PREV VISIT, NEW, AGE 40-64 [facility], [facility] [address] [place], [address], [place] tel:[phone] [facility] Physical (chief complaint) Encounter for general adult medical exam w abnormal findingsEssential (primary) hypertensionSolitar y lung noduleCellulitis of abdominal wall 8 Ochoa Hod[address]. [address], [place], [place], [address] , [place]. [phone] Referring Provider: Ralph Cervantes [address] [facility], [place], [place], [address]. tel:[phone] Family History Family Member Type Diagnosis Age [...] VIEWS ordered Referral Referred To: Beto Sykes [facility] [address] [place], [place] [id number] Ordered: Referrals: Allopathic & Osteopathic Physicians : Surgery. Beto Sykes. Evaluate and treat ordered Referral Ordered: CT THORAX W/O DYE ordered Referral Ordered: Raphael Casey -Allopathic & Osteopathic Physicians : Surgery (related to Body mass index (BMI) 45.0-49.9, adult) ordered Referral Referred To: Raphael Casey [address] [address] [place], [place], [id number] Ordered: Referrals: Allopathic & Osteopathic Physicians : Surgery. Raphael Casey. Evaluate and treat ordered Referral Ordered: Willie Campbell -Allopathic & Osteopathic Physicians : Surgery (related to Cellulitis of abdominal wall) ordered Referral Referred To: Willie Campbell [address] [facility]
[address] [id number] Ordered: Referrals: Allopathic & Osteopathic Physicians : [...] did not go to bariatric surgery in [place] and she told me she is getting [...] Dr. matos and also plastic surgeon in [facility] for lipo suction but they told her [...]
--- OUTSIDE RECORDS SUMMARY | 2025-01-07 14:08 | XMS_ITS | Continuity of Care Document ---
Author Organization [facility] Address [address] [place] [address] Phone Care Team Providers Care Painting Contractor Name Role Phone Carroll Packer MD Unavailable [...] Date Provider Providers Copied on Encounter [facility], [address] [facility] [place], [place], [address], [place] tel:[phone] [facility] No Information 9 Ochoa Singh [address], [place], [place], [address] , [place]. tel:[phone] OFFICE/OUTPA TIENT VISIT, EST [facility], [address], [place], [place], [address], [place] tel:[phone] [facility] folic1 (chief complaint) lung (chief complaint) neck pain1 (chief complaint) Body mass index (BMI) 45.0-49.9, adultFolate deficiencySarcoidos is of lungShortness of breath 9 Ochoa Singh [address], [place], [place], [address] , [place]. tel:[phone] Referring Provider: Ralph Cervantes [address], [place], [place], [address]. tel:[phone] PREV VISIT, EST, AGE 40-64 [facility], [address], [place], [place], [address], [place] tel:[phone] [facility] Physical (chief complaint) Encounter for general adult medical exam w abnormal findingsFolate deficiencyEssential (primary) hypertensionSarcoid osis of lungPain in unspecified handCervicalgia 8 Ochoa Singh [address], [place], [place], [address] , [place]. tel:[phone] Referring Provider: Ralph Cervantes [address], [place], [place], [address]. tel:[phone] PREV VISIT, EST, AGE 40-64 [facility], [address], [place], [place], [address], [place] tel:[phone] [facility] Medicine Physical (chief complaint) Encounter for general adult medical exam w abnormal findingsEssential (primary) hypertensionFolate deficiencySolitary lung noduleBody mass index (BMI) 45.0-49.9, adult Mar-0 8-201 [address], [place], [place], [address] , [place]. tel:[phone] Referring Provider: Ralph Cervantes [address], [place], [place], [address]. tel:[phone] OFFICE/OUTPA TIENT VISIT, EST [facility], [address], [place], [place], [address], [place] tel:[phone] [facility] HTN (chief complaint) folate1 (chief complaint) skin1 (chief complaint) Body mass index (BMI) 45.0-49.9, adultEssential (primary) hypertensionFolate deficiencyVitamin D deficiency, unspecified 8 Ochoa [address]. [address] [facility] [address], [place], [place], [address] , [place]. [phone] Referring Provider: Ralph Cervantes [address] [facility] [address], [place], [place], [address]. tel:[phone] PREV VISIT, NEW, AGE 40-64 [facility], [facility] [address] [place], [address], [place] tel:[phone] [facility] Physical (chief complaint) Encounter for general adult medical exam w abnormal findingsEssential (primary) hypertensionSolitar y lung noduleCellulitis of abdominal wall 8 Ochoa Hod[address]. [address], [place], [place], [address] , [place]. [phone] Referring Provider: Ralph Cervantes [address] [facility], [place], [place], [address]. tel:[phone] Family History Family Member Type Diagnosis Age At Onset Father Problem (finding) Alive and well Mother Problem (finding) Alive and well Brother Problem (finding) Alive and well Payers Payer name Insurance type Covered democrat ID Authoriza tion(s) No Information Social History [...] mpleted Goal Special diet education compl eted Referral Ordered: Beto Sykes -Allopathic & Osteopathic Physicians : Surgery (related to Pain in unspecified hand) ordered Referral Ordered: CERVICAL SPINE XRAY 7 VIEWS ordered Referral Referred To: Beto Sykes [facility] [address] [place], [place] [id number] Ordered: Referrals: Allopathic & Osteopathic Physicians : Surgery. Beto Sykes. Evaluate and treat ordered Referral Ordered: CT THORAX W/O DYE ordered Referral Ordered: Raphael Casey -Allopathic & Osteopathic Physicians : Surgery (related to Body mass index (BMI) 45.0-49.9, adult) ordered Referral Referred To: Raphael Casey [address] [address] [place], [place], [address] Ordered: Referrals: Allopathic & Osteopathic Physicians : Surgery. Raphael Casey. Evaluate and treat ordered Referral Ordered: Willie Campbell -Allopathic & Osteopathic Physicians : Surgery (related to Cellulitis of abdominal wall) ordered Referral Referred To: Willie Campbell [address] [facility]
[address] [id number] Ordered: Referrals: Allopathic & Osteopathic Physicians : Surgery. Willie Campbell. Evaluate and treat ordered Referral Ordered: MAMMOGRAM, SCREENING ordered History Of Present Illness Encounter Date Complaint History Of Prese nt Illness folic1 Pt has low folic acid. Pt is folic supplement. pt feels more energy neck pain1 Pt has neck pain and bilateral hand and wrist pain. Pt has mild hand numbness Pt has not do neck x ray or make appointment with Dr. Sykes yet. Pt denies worsening symptoms lung Pt has pulmonary sarcoid and frequent [...] or bedrest. pt denies any calf pain Physical Pt needs annual physical. Pt has [...] did not go to bariatric surgery in [place] and she told me she is getting on [employer] and she will try to do bariatric surgery locally. Pt has been using nystatin topical and she is doing ok around the abdominal skin area without any infection. Pt denies any other complaints HTN Pt has HTN. Pt t akes lisinopril/hctz and her BP is stable. folate1 Pt has low folat e and low D skin1 Pt has recurrent skin infection around lower abdomen due to obese abdomen. Pt went to see Dr. matos and also plastic surgeon in [facility] for lipo suction but they told her she is too overall obese for local treatment. Physical Pt needs annual physical. Pt has [...] complaints Instructions Date Instruction Additional Infor steffany Special diet education Related t o Body mass index (BMI) 45.0-49.9, adult Increase physical activity Relat ed to Sarcoidosis of lung Weight management Related to Day coidosis of lung Special diet education Related t [...] o Body mass index (BMI) 45.0-49.9, adult Prescribed dietary intake Relate d to Body mass index (BMI) 45.0- 49.9, adult Increase activity. Related to Es sential (primary) hypertension Follow a low sodium diet. Relate d to Essential (primary) hypertension Special diet education Related t o Body mass index (BMI) 45.0-49.9, adult Increase physical activity Relat ed to Encounter for general adult medical exam w abnormal findings Weight management Related to Enc ounter for general adult medical exam w abnormal findings Assessments Type Assessment Date No Information
--- OUTSIDE RECORDS SUMMARY | 2025-01-07 14:09 | XMS_ITS | Clinical Summary ---
Author Organization [facility] Address [address] [place] [address] Care Team Providers Care Shipping And Receiving Clerk Name Role Phone Elliott Shea MD Primary Care Provider [phone] Elliott Shea MD Unavailable [phone] Maryjo Damon MD Unavailable [phone] Sesar Durham MD Unavailable [phone] Allergies No known active allergies Medications [...] 09/07/2024 Assessment & Plan (09/07/2024 2:33 PM COAL CUTTING MACHINE OPERATOR): Impression: Patient complains of bilateral lower [...] stockings given to patient to fill at [facility]. -Patient to follow-up as needed. Nonsmoker [...] on file Legal Sex Female 1:40 PM COAL CUTTING MACHINE OPERATOR Gender Identity Not on file Sexual Orientation Not on file Obstetrics History Last Filed Vital Signs Vital Sign Reading Time Taken Comments Blood Pressure 131/73 09/26/2024 2:21 PM COAL CUTTING MACHINE OPERATOR Pulse 71 09/26/2024 2:21 PM COAL CUTTING MACHINE OPERATOR Temperature 36.6 C (97.9 F) 09/26/2024 2:21 PM COAL CUTTING MACHINE OPERATOR Respiratory Rate 18 08/29/2024 8:37 AM COAL CUTTING MACHINE OPERATOR Oxygen Saturation 100% 09/26/2024 2:21 PM COAL CUTTING MACHINE OPERATOR Inhaled Oxygen Concentration - - Weight 85.9 kg (189 lb 4.8 oz) 09/26/2024 2:21 P M COAL CUTTING MACHINE OPERATOR Height 160 cm (5' 2.99) 09/26/2024 2:21 PM COAL CUTTING MACHINE OPERATOR Body Mass Index 33.54 09/26/2024 2:21 PM COAL CUTTING MACHINE OPERATOR Plan of Treatment Health Maintenance Due [...] 2024 Influenza Vaccine (Season Ended) 2025 Insurance [facility] [place] [employer] OTHER Address: [address] [place] [address] [facility] [employer] Address: [address] [place] [address] [place] [facility] CIGNA CIGNA [facility] [employer] Address: [address] [place] [address] [facility] [employer] Address: [address] [place] [address] Care Teams Shipping And Receiving Clerk Relationship Specialty Start Date End Date Elliott Shea MD [address] [place] [address] PCP - General Family Practice 07/20/24 Elliott Shea MD [address] [place] [address] Family Practice 07/20/24 Maryjo Damon MD [address] [place] [address] Consulting Physician Pulmonary Disease 03/17/24 Sesar Durham MD [address] [place] [address] Consulting Physician Infectious Diseases 07/11/24
--- OUTSIDE RECORDS SUMMARY | 2025-01-07 14:09 | XMS_ITS | Clinical Summary ---
Author Organization [facility] Address [address] [facility] [place] [address] Care Team Providers Care Director Of Mobile Marketing Name Role Phone Elliott Shea MD Primary Care Provider [phone] Allergies No known active allergies Medications LOMAIRA [...] Advance Directives For more information, please contact: [phone] * Full Code (Latest Code Status on [...] 12:53 PM 01/24/2019 4:55 PM Care Teams Director Of Mobile Marketing Relationship Specialty Start Date End Date Elliott Shea MD [address] [place] [address] PCP - General Family Practice 10/22/23
--- OUTSIDE RECORDS SUMMARY | 2025-01-07 14:09 | XMS_ITS | Clinical Summary ---
Author Organization [facility] Address [address] [place] [address] Phone Care Team Providers Care Civil Process Server Name Role Phone Jordan Javier MD Primary Care Provider [phone] Allergies No known active allergies Medications lisinopril-hydro [...] patient's age to complete this topic Insurance [facility] MEDICAID [facility] Care Teams Civil Process Server Relationship Specialty Start Date End Date Jordan Javier MD [address] [facility] [address] [place] [address] PCP - General Internal Medicine 01/15/17
--- OUTSIDE RECORDS SUMMARY | 2025-01-07 14:09 | XMS_ITS | Encounter Summary ---
Author Organization [facility] Address [address] [place] [address] Care Team Providers Care Fish And Wildlife Biologist Name Role Phone Elliott Shea MD Primary Care Provider [phone] Elliott Shea MD Primary Care Provider [phone] Elliott Shea MD Unavailable [phone] Maryjo Damon MD Unavailable [phone] Sesar Durham MD Unavailable [phone] Encounter Details Date Type Department Care Team (Late st Contact Info) Description 04/19/2024 Orders Only [facility] PreAdmission Testing [address] [place] [address] Joy Mauro, RN Social History Tobacco Use [...] on file Legal Sex Female 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 Gender Identity Not on file Sexual Orientation Not on file documented as of this encounter Functional Status documented as of this encounter Plan of Treatment Not on file documented as of this encounter Visit Diagnoses Not on filedocumented in this encounter Care Teams Fish And Wildlife Biologist Relationship Specialty Start Date End Date Elliott Shea MD PCP - General [facility] Practice 02/16/24 07/19/24 Elliott Shea MD [address] [place], [place] [address] PCP - [facility] Practice 07/20/24 Elliott Shea MD [facility] Practice 07/20/24 Maryjo Damon MD [address] [place] [address] Consulting Physician Pulmonary Disease 03/17/24 Sesar Durham MD [address] [place] [address] Consulting Physician Infectious Diseases 07/11/24 documented as of this encounter
--- OUTSIDE RECORDS SUMMARY | 2025-01-07 14:09 | XMS_ITS | CONTINUITY OF CARE DOCUMENT ---
Author Name brandy nava Address Unknown Organization [facility] Address [address] [facility] [facility] [facility] [address] [place] [address] Phone [phone] Care Team Providers Care Director Of Outpatient Services Name Role Phone brandy nava Unavailable Unavailable INSURANCE PROVIDERS Payer name Policy type / Coverage type [place] red democrat ID [id number] MEDICAID (2) Medicaid [id number]
--- OUTSIDE RECORDS SUMMARY | 2025-01-07 14:09 | XMS_ITS | Referral Summary ---
Author Organization [facility] at the [facility] Address [address] [place] [address] Care Team Providers Care Pipelines Superintendent Name Role Phone Elliott Shea MD Primary Care Provider [phone] Elliott Shea MD Unavailable [phone] Maryjo Damon MD Unavailable [phone] Sesar Durham MD Unavailable [phone] Allergies No known active allergies Medications cyanocobalamin [...] 09/07/2024 Assessment & Plan (09/07/2024 2:33 PM FLAKE OR SHRED ROLL OPERATOR): Impression: Patient complains of bilateral lower [...] stockings given to patient to fill at [facility]. -Patient to follow-up as needed. Nonsmoker [...] on file Legal Sex Female 1:40 PM FLAKE OR SHRED ROLL OPERATOR Gender Identity Not on file Sexual Orientation Not on file Last Filed Vital Signs Vital Sign Reading Time Taken Comments Blood Pressure 131/73 09/26/2024 2:21 PM FLAKE OR SHRED ROLL OPERATOR Pulse 71 09/26/2024 2:21 PM FLAKE OR SHRED ROLL OPERATOR Temperature 36.6 C (97.9 F) 09/26/2024 2:21 PM FLAKE OR SHRED ROLL OPERATOR Respiratory Rate 18 08/29/2024 8:37 AM FLAKE OR SHRED ROLL OPERATOR Oxygen Saturation 100% 09/26/2024 2:21 PM FLAKE OR SHRED ROLL OPERATOR Inhaled Oxygen Concentration - - Weight 85.9 kg (189 lb 4.8 oz) 09/26/2024 2:21 P M FLAKE OR SHRED ROLL OPERATOR Height 160 cm (5' 2.99) 09/26/2024 2:21 PM FLAKE OR SHRED ROLL OPERATOR Body Mass Index 33.54 09/26/2024 2:21 PM FLAKE OR SHRED ROLL OPERATOR Plan of Treatment Not on file Insurance [employer] [place] [employer] [place] [facility] [employer] PL[employer] Address: [facility] [address] [place] [address] [employer] [place] [employer] [place] [employer] [facility] [employer] Address: [facility] [address] [place] [address] [facility] [employer] [facility] [employer] Address: [facility] [address] [place] [address] Care Teams Pipelines Superintendent Relationship Specialty Start Date End Date Elliott Shea MD [address] [place] [address] PCP - General Family Practice 07/20/24 Elliott Shea MD [address] [place] [address] Family Practice 07/20/24 Maryjo Damon MD [address] [place] [address] Consulting Physician Pulmonary Disease 03/17/24 Sesar Durham MD [address] [place] [address] Consulting Physician Infectious Diseases 07/11/24
--- OUTSIDE RECORDS SUMMARY | 2025-01-07 14:09 | XMS_ITS | Clinical Summary ---
Author Organization [facility] [employer] Address [address] [place] [address] Care Team Providers Care Stacker Driver Name Role Phone Shun Browning MD Primary Care Provider Source Comments [facility],non-owned Affiliates and Associated Physician Practices is amultiple site organization consisting of ambulatory clinics and hospital sitesin [place], [place], [place] and [place]. This disclosure is being madepursuant to the Care Everywhere program and may not contain all information available regarding this patient. Last updated 18.[facility] [employer] Medications * Be aware that medications may [...] on file Legal Sex Female 6:25 PM INSOLE ROUNDER Gender Identity Not on file Sexual Orientation [...] Subscriber ID:Not on file (Home) Address: [address] [place] [address] Payer ID:[id number] (NAIC) Type:PPO Address: [address] [place] [id number] [facility] Care Teams Stacker Driver Relationship Specialty Start Date End Date Shun Browning MD [address] [facility] [address] [place] [address] PCP - General 08/19/08
--- NOTE | 2025-01-07 14:56 | ED_ITS ---
HPI - Extremity Injury (Lower) General Chief Complaint: Extremity Injury, Lower Stated Complaint: left sided hip pain Time Seen by Provider: 01/07/25 14:01 History of Present Illness HPI Narrative: 49-year-old female presents to the emergency department for atraumatic left- sided hip/buttock the past 2 days. Patient states the pain originates in her buttock and lateral aspect of the hip and moves along the lateral aspect of the thigh to the distal femur. She denies injury or trauma. States she has a remote history of a similar pain that self-resolved. She denies any back pain, weakness to her leg, numbness. She does report intermittent tingling that can occur along the distribution of the pain when she lays on her right side. She denies lower extremity edema, calf pain or history of VTE. Patient has a history of multiple GI surgeries and therefore is unable to take NSAIDs. Related Data Home Medications ?Medication ?Instructions ?Recorded ?Confirmed ?Last Taken ?Type multivitamin (Daily Multi-Vitamin 2 tablet PO DAILY 12/08/19 03/08/24 04/20/22 History tablet) mecobalamin (vitamin B12) 5,000 5,000 mcg PO EVERY OTHER DAY 02/12/21 03/08/24 04/20/22 History mcg disintegrating tablet Allergies Allergy/AdvReac Type Severity Reaction Status Date / Time No Known Allergies Allergy Verified 07/06/24 11:08 Review of Systems Review of Systems: All systems reviewed & are unremarkable except as noted in HPI and below PMFSH Past Medical History Medical History Vaginitis Stress incontinence in female Uterine fibroid Diabetes Internal hemorrhoid, bleeding Degenerative joint disease of knee Medial meniscus tear Yeast infection of the skin Left knee pain Encounter for long-term (current) use of other medications Abdominal pannus Symptomatic abdominal apron Right foot pain Chest wall pain Encounter for surgical aftercare following surgery on the digestive system Residual hemorrhoidal skin tag Anal pruritus Anal fissure Rectal bleeding Tinea corporis Restless legs syndrome Body mass index (bmi) 37.0-37.9, adult Chronic fatigue Chronic right shoulder pain Essential (primary) hypertension Hypersomnia Mixed restrictive and obstructive lung disease Overweight (11/30/16) Sarcoid Unspecified hemorrhoids Surgical History Surgical History Status post panniculectomy History of tubal ligation (~2007) History of dilation and curettage (04/23/11) H/O gastric sleeve (03/08/19) History of endometrial ablation (05/07/11) History of 1991 1993 2007 H/O hemorrhoidectomy Family History Family History Father Hypertension Mother Hypertension ASD (atrial septal defect) COPD (chronic obstructive pulmonary disease) Sibling Patient's sister is in good health Patient's brother is in good health Seizure Other Lung cancer Heart disease Grandparent Hypertension paternal grandmother maternal grandfather Other Diabetes mellitus Family history of malignant neoplasm Social History Social History Smoking status: Never smoker Second hand tobacco smoke exposure: Yes Alcohol intake: current Alcohol use details: Special Occasions Substance use: never Substance use type: marijuana Lack of Transportation: YES Lack of Food: Often True Current Housing: I Do Not Have Housing Concerned About Future Housing: Decline to Answer Difficulty Paying Gas/Electric Bills: YES Difficulty Paying for Meds: YES Currently Unemployed: No Education: High School Diploma/GED Difficulty w/ Childcare or Family Care: No Living arrangements: with family 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 HEAD: Normocephalic, atraumatic. EYES: EOMI. ENT: Nares clear, no rhinorrhea or epistaxis. Mucous membranes moist. NECK: Supple. BACK: No midline thoracolumbar spinous tenderness, crepitus, step-offs or deformities. No overlying skin changes. CHEST: Clear to auscultation. No respiratory distress. HEART: Regular rate and rhythm. No murmur heard. Normal peripheral pulses. EXTREMITIES: LLE: Mild tenderness over the piriformis on palpation, tenderness to light palpation along the lateral aspect of the hip and lateral aspect of the thigh. No overlying skin changes throughout. No deformity. Full range of motion of hip and knee. Strength 5/5 throughout. Sensation intact throughout. DP pulse 2 +. Negative Homans sign. No edema. Extremities pink, warm and dry. SKIN: Warm, dry, no rash. NEURO: No focal deficits. Alert and oriented x3 Course Vital Signs Vital signs: Vital Signs Temperature 97.6 F 01/07/25 11:57 Pulse Rate 70 01/07/25 11:57 Respiratory Rate 19 01/07/25 11:57 Blood Pressure 154/99 H 01/07/25 11:57 Pulse Oximetry 98 01/07/25 11:57 Oxygen Delivery Room Air 01/07/25 11:57 Temperature 97.6 F 01/07/25 11:57 Pulse Rate 70 01/07/25 11:57 Respiratory Rate 19 01/07/25 11:57 Blood Pressure 154/99 H 01/07/25 11:57 Pulse Oximetry 98 01/07/25 11:57 Oxygen Delivery Room Air 01/07/25 11:57 MDM - Extremity Injury (Lower) MDM Narrative Medical decision making narrative: 49-year-old female presents to emergency department for left buttock, lateral hip and lateral thigh pain for the past 2 days. No injury or trauma. Vitals with hypertension, otherwise unremarkable. She is afebrile and nontoxic appearing. Exam is significant for tenderness over the left piriformis, lateral aspect the hip and along the ITB band. She is neurovascularly intact. No overlying skin changes or deformity. She has full range of motion of her hip and knee. There is no tenderness to her thoracic or lumbar spine. X-rays show no acute osseous findings. Patient updated on results. Discussed differential diagnosis including piriformis syndrome, IT band syndrome, meralgia paresthetica, hip bursitis. Unfortunately patient cannot take NSAIDs due to previous gastric surgeries. She was given Flexeril, Tylenol, Decadron and lidocaine patch in the ED with improvement. Will send Flexeril, Tylenol lidocaine patches to the pharmacy. Advised follow-up with PCP, she has an appointment in 4 days which I encouraged her to attend. Discussed strict ED return precautions. She is agreeable with the plan verbalized understanding. Discharged in stable condition. Discharge Plan Discharge Clinical Impression: Acute pain of left hip Patient Disposition: Home Condition: Stable Instructions: Antibiotic Form, Hip Pain (ED) Additional Instructions: You were evaluated in the emergency department for left leg pain. Your x-rays are reassuring. Your pain may be due to bursitis versus IT band syndrome versus piriformis syndrome and other musculoskeletal ?source as discussed. Please take medications as directed and follow-up closely with her primary care provider. Return to the emergency department if you develop any new or worsening symptoms. Patient Language: Frisian Prescriptions: New cyclobenzaprine 10 mg tablet 10 mg PO TID PRN (Reason: muscle spasm) Qty: 14 0RF lidocaine 5 % adhesive patch,medicated 1 patch topical DAILY Qty: 15 0RF Rx Instructions: leave on most painful area for up to 12 hrs. do not use more than 1 patch in a 24-hour period. acetaminophen 500 mg capsule 500 mg PO Q6H PRN (Reason: pain) Qty: 14 0RF No Action sulfamethoxazole-trimethoprim 800-160 mg tablet 1 tablet PO Q12H 5 Days Qty: 10 0RF mupirocin 2 % ointment 1 applic topical BID 7 Days Qty: 22 0RF multivitamin [Daily Multi-Vitamin] Tablet 2 tablet PO DAILY mecobalamin (vitamin B12) 5,000 mcg tablet,disintegrating 5,000 mcg PO EVERY OTHER DAY gabapentin 100 mg capsule 100 mg PO BID Qty: 60 1RF estradiol 0.01 % (0.1 mg/gram) cream 1 g vaginal 3XW Qty: 42.5 3RF acetaminophen 500 mg capsule 500 mg PO QID PRN (Reason: pain) Qty: 20 0RF cyclobenzaprine 10 mg tablet 10 mg PO TID PRN (Reason: muscle spasm) Qty: 20 0RF cholecalciferol (vitamin D3) 1,250 mcg (50,000 unit) capsule 1,250 mcg PO WEEKLY Qty: 14 1RF (DME) pen needle, diabetic [Ultra-Thin II Ins Pen [place]] 29 gauge x 1/2 needle See Rx Instructions .Route Qty: 100 1RF Rx Instructions: inject once daily As directed Wegovy 1 mg/0.5 mL pen injector 1 mg subcut WEEKLY Qty: 2 0RF Rx Instructions: administer weeks 9 through 12 of therapy Wegovy 1.7 mg/0.75 mL pen injector 1.7 mg subcut WEEKLY Qty: 3 0RF Rx Instructions: administer weeks 13 through 16 of therapy Wegovy 2.4 mg/0.75 mL pen injector 2.4 mg subcut WEEKLY Qty: 3 5RF fluconazole 150 mg tablet 150 mg PO ONCE Qty: 1 1RF Rx Instructions: as a single dose Follow-up/Referrals: Elliott Shea MD [Primary Care Provider] -
[2025-01-07] MEDS: LIDOCAINE 5% PATCH 1 PATCH TRANSDERM (15:09)
[2025-01-07] MEDS: dexAMETHasone SOD PHOS INJ 10 MG/ML 1 ML VIAL IM (15:11)
[2025-01-07] MEDS: CYCLOBENZAPRINE HCL 10 MG TABLET PO (15:13)
[2025-01-07] MEDS: ACETAMINOPHEN 500 MG TABLET 1000 MG PO (15:14)
== END 2025-01-07 15:46 | disposition home or self-care (01) ==
PROVIDERS: Emergency Provider Physician Assistant; PCP Family Medicine
DX: M25.552 Pain in left hip (principal); I10 Essential (primary) hypertension
CPT/HCPCS: 73502; 73552; 96372; 99284; A9270; J1100

== ENCOUNTER 2025-02-14 19:52 | Emergency (ER) | payer OTHER, BC, SELFPAY ==
[2025-02-14 19:53] VITALS: BP 145/79; PULSE 67; RESP 14; TEMP 36.5; O2SAT 96
--- OUTSIDE RECORDS SUMMARY | 2025-02-14 19:54 | XMS_ITS | Clinical Summary ---
Author Organization [facility] [employer] Address [address] [facility] [place] [address] Care Team Providers Care Doubling Machine Operator Name Role Phone Shun Browning MD Primary Care Provider Source Comments [facility],non-owned Affiliates and Associated Physician Practices is amultiple site organization consisting of ambulatory clinics and hospital sitesin [place], [place], [place] and [place]. This disclosure is being madepursuant to the Care Everywhere program and may not contain all information available regarding this patient. 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
--- OUTSIDE RECORDS SUMMARY | 2025-02-14 19:54 | XMS_ITS | Clinical Summary ---
Author Organization [facility] Address [address] [place] [address] Phone Care Team Providers Care Piercing Machine Operator Name Role Phone Jordan Javier MD Primary Care Provider [phone] Allergies No known active allergies Medications lisinopril-hydro [...] patient's age to complete this topic Insurance [facility] MEDICAID [facility] Care Teams Piercing Machine Operator Relationship Specialty Start Date End Date Jordan Javier MD [address] [facility] [address] [place] [address] PCP - General Internal Medicine 01/15/17
--- OUTSIDE RECORDS SUMMARY | 2025-02-14 19:54 | XMS_ITS | Clinical Summary ---
Author Organization [facility] Address [address] [place] [address] Care Team Providers Care Rubber And Pounder Name Role Phone Elliott Shea MD Primary Care Provider [phone] Allergies No known active allergies Medications LOMAIRA [...] index of 40.0-49.9 01/05/2019 Lung nodule 04/18/2018 Family History Medical History Relation Name Comments [...] Flex Sig/CT Colonography Q 5 years 2019 ZOSTER VACCINE (1 of 2) 2024 INFLUENZA VACCINE (#1) [address] [place] [address] BCBS BLUE ACCESS/TRUE BLUE PPO Advance Directives For more information, please contact: [phone] * Full Code (Latest Code Status on [...] 12:53 PM 01/24/2019 4:55 PM Care Teams Rubber And Pounder Relationship Specialty Start Date End Date Elliott Shea MD [address] [place] [address] PCP - General Family Practice 10/22/23
--- OUTSIDE RECORDS SUMMARY | 2025-02-14 19:54 | XMS_ITS | Clinical Summary ---
Author Organization [facility] Address [address] [place] [address] Care Team Providers Care Carbon Printer Name Role Phone Elliott Shea MD Primary Care Provider [phone] Elliott Shea MD Unavailable [phone] Maryjo Damon MD Unavailable [phone] Sesar Durham MD Unavailable [phone] Allergies No known active allergies Medications cyanocobalamin [...] 09/07/2024 Assessment & Plan (09/07/2024 2:33 PM BULK FILLER): Impression: Patient complains of bilateral lower extremity [...] stockings given to patient to fill at [facility]. -Patient to follow-up as needed. Nonsmoker [...] on file Legal Sex Female 1:40 PM BULK FILLER Gender Identity Not on file Sexual Orientation Not on file Obstetrics History Last Filed Vital Signs Vital Sign Reading Time Taken Comments Blood Pressure 131/73 09/26/2024 2:21 PM BULK FILLER Pulse 71 09/26/2024 2:21 PM BULK FILLER Temperature 36.6 C (97.9 F) 09/26/2024 2:21 PM BULK FILLER Respiratory Rate 18 08/29/2024 8:37 AM BULK FILLER Oxygen Saturation 100% 09/26/2024 2:21 PM BULK FILLER Inhaled Oxygen Concentration - - Weight 85.9 kg (189 lb 4.8 oz) 09/26/2024 2:21 P M BULK FILLER Height 160 cm (5' 2.99) 09/26/2024 2:21 PM BULK FILLER Body Mass Index 33.54 09/26/2024 2:21 PM BULK FILLER Plan of Treatment Health Maintenance Due Date [...] Vaccine (1 of 2) 2024 Influenza Vaccine (#1) 2025 Insurance [facility] [employer] [place] [facility] [employer]EE [employer] Address: [address] [place] [address] [employer] [place] [facility] CIGNA [employer] [facility] [employer] Address: [address] [place] [address] [facility] [employer] Address: [address] [place] [address] Care Teams Carbon Printer Relationship Specialty Start Date End Date Elliott Shea MD [address] [place] [address] PCP - General Family Practice 07/20/24 Elliott Shea MD [address] [place] [address] Family Practice 07/20/24 Maryjo Damon MD [address] [place] [address] Consulting Physician Pulmonary Disease 03/17/24 Sesar Durham MD [address] [place] [address] Consulting Physician Infectious Diseases 07/11/24
--- OUTSIDE RECORDS SUMMARY | 2025-02-14 19:54 | XMS_ITS | Referral Summary ---
Author Organization [facility] at the [facility] Address [address] [place] [address] Care Team Providers Care Administration Manager Name Role Phone Elliott Shea MD Primary Care Provider [phone] Elliott Shea MD Unavailable [phone] Maryjo Damon MD Unavailable [phone] Sesar Durham MD Unavailable [phone] Allergies No known active allergies Medications cyanocobalamin [...] 09/07/2024 Assessment & Plan (09/07/2024 2:33 PM RUBBER TIRE AND TUBES SUPERVISOR): Impression: Patient complains of bilateral lower extremity [...] stockings given to patient to fill at [place] pharmacy. -Patient to follow-up as needed. Nonsmoker [...] on file Legal Sex Female 1:40 PM RUBBER TIRE AND TUBES SUPERVISOR Gender Identity Not on file Sexual Orientation Not on file Last Filed Vital Signs Vital Sign Reading Time Taken Comments Blood Pressure 131/73 09/26/2024 2:21 PM RUBBER TIRE AND TUBES SUPERVISOR Pulse 71 09/26/2024 2:21 PM RUBBER TIRE AND TUBES SUPERVISOR Temperature 36.6 C (97.9 F) 09/26/2024 2:21 PM RUBBER TIRE AND TUBES SUPERVISOR Respiratory Rate 18 08/29/2024 8:37 AM RUBBER TIRE AND TUBES SUPERVISOR Oxygen Saturation 100% 09/26/2024 2:21 PM RUBBER TIRE AND TUBES SUPERVISOR Inhaled Oxygen Concentration - - Weight 85.9 kg (189 lb 4.8 oz) 09/26/2024 2:21 P M RUBBER TIRE AND TUBES SUPERVISOR Height 160 cm (5' 2.99) 09/26/2024 2:21 PM RUBBER TIRE AND TUBES SUPERVISOR Body Mass Index 33.54 09/26/2024 2:21 PM RUBBER TIRE AND TUBES SUPERVISOR Plan of Treatment Not on file Insurance [employer] [place] [employer] [place] [facility] EMPL[employer]EE HEALTH PLANS Address: [id number] [place] [address] [employer] [place] [employer] [place] [employer] [facility] [employer] PL[employer] Address: [address] [place] [address] [facility] [employer] Address: [address] [place] [address] Care Teams Administration Manager Relationship Specialty Start Date End Date Elliott Shea MD [address] [place] [address] PCP - General Family Practice 07/20/24 Elliott Shea MD [address] [place] [address] Family Practice 07/20/24 Maryjo Damon MD [address] [place] [address] Consulting Physician Pulmonary Disease 03/17/24 Sesar Durham MD [address] [place] [address] Consulting Physician Infectious Diseases 07/11/24
--- OUTSIDE RECORDS SUMMARY | 2025-02-14 19:54 | XMS_ITS | Encounter Summary ---
Author Organization [facility] Address [address] [place] [address] Care Team Providers Care Director Corporate Communications Name Role Phone Elliott Shea MD Primary Care Provider [phone] Elliott Shea MD Primary Care Provider [phone] Elliott Shea MD Unavailable [phone] Maryjo Damon MD Unavailable [phone] Sesar Durham MD Unavailable [phone] Encounter Details Date Type Department Care Team (Late st Contact Info) Description 04/19/2024 Orders Only [facility] PreAdmission Testing [address] [place] [address] Joy Mauro, RN Social History Tobacco Use [...] on file Legal 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 Gender Identity Not on file Sexual Orientation Not on file documented as of this encounter Functional Status documented as of this encounter Plan of Treatment Not on file documented as of this encounter Visit Diagnoses Not on filedocumented in this encounter Care Teams Director Corporate Communications Relationship Specialty Start Date End Date Elliott Shea MD PCP - General [facility] 02/16/24 07/19/24 Elliott Shea MD [address] [place], [place] [id number] PCP - [facility] 07/20/24 Elliott Shea MD [facility] 07/20/24 Maryjo Damon MD [address] [place] [address] Consulting Physician Pulmonary Disease 03/17/24 Sesar Durham MD [address] [place] [address] Consulting Physician Infectious Diseases 07/11/24 documented as of this encounter
--- OUTSIDE RECORDS SUMMARY | 2025-02-14 19:54 | XMS_ITS | Continuity of Care Document ---
Author Organization [facility] Address [address] [facility] [place] [address] Phone Care Team Providers Care Etl Application Developer Name Role Phone Carroll Packer MD Unavailable [...] Diagnoses Date Provider Providers Copied on Encounter [facility], [address] [facility] [place], [address], [place] tel:[phone] [facility] No Information 9 Ochoa Singh [address], [address], [place], [place], [address] , [place]. tel:[phone] OFFICE/OUTPA TIENT VISIT, EST [facility], [address], [place], [place], [address], [place] tel:[phone] [facility] folic1 (chief complaint) lung (chief complaint) neck pain1 (chief complaint) Body mass index (BMI) 45.0-49.9, adultFolate deficiencySarcoidos is of lungShortness of breath 9 Ochoa Singh [address], [address], [place], [place], [address] , [place]. tel:[phone] Referring Provider: Ralph Cervantes [address], [place], [place], [address]. tel:[phone] PREV VISIT, EST, AGE 40-64 [facility], [address], [place], [place], [address], [place] tel:[phone] [facility] Physical (chief complaint) Encounter for general adult medical exam w abnormal findingsFolate deficiencyEssential (primary) hypertensionSarcoid osis of lungPain in unspecified handCervicalgia 8 Ochoa Singh [address], [place], [place], [address] , [place]. tel:[phone] Referring Provider: Ralph Cervantes [address], [place], [place], [address]. tel:[phone] PREV VISIT, EST, AGE 40-64 [facility], [address], [place], [place], [address], [place] tel:[phone] [facility] Medicine Physical (chief complaint) Encounter for general adult medical exam w abnormal findingsEssential (primary) hypertensionFolate deficiencySolitary lung noduleBody mass index (BMI) 45.0-49.9, adult Mar-0 8-201 8 Ochoa Ros[address], [place], [place], [address] , [place]. tel:[phone] Referring Provider: Ralph Cervantes [address], [place], [place], [address]. tel:[phone] OFFICE/OUTPA TIENT VISIT, EST [facility], [address], [place], [place], [address], [place] tel:[phone] [facility] HTN (chief complaint) folate1 (chief complaint) skin1 (chief complaint) Body mass index (BMI) 45.0-49.9, adultEssential (primary) hypertensionFolate deficiencyVitamin D deficiency, unspecified 8 Ochoa Hodges. [address], [place], [place], [address] , [place]. [phone] Referring Provider: Ralph Cervantes [address] [facility] [address], [place], [place], [address]. tel:[phone] PREV VISIT, NEW, AGE 40-64 [facility], [facility] [address] [place], [address], [place] tel:[phone] [facility] Physical (chief complaint) Encounter for general adult medical exam w abnormal findingsEssential (primary) hypertensionSolitar y lung noduleCellulitis of abdominal wall 8 Ochoa Hod[address]. [address], [place], [place], [address] , [place]. [phone] Referring Provider: Ralph Cervantes [address] [facility], [place], [place], [address]. tel:[phone] Family History Family Member Type Diagnosis Age [...] VIEWS ordered Referral Referred To: Beto Sykes [place] [address] [place] [address] [place], [place] [id number] Ordered: Referrals: Allopathic & Osteopathic Physicians : Surgery. Beto Sykes. Evaluate and treat ordered Referral Ordered: CT THORAX W/O DYE ordered Referral Ordered: Raphael Casey -Allopathic & Osteopathic Physicians : Surgery (related to Body mass index (BMI) 45.0-49.9, adult) ordered Referral Referred To: Raphael Casey [address] [address] [place], [place], [id number] Ordered: Referrals: Allopathic & Osteopathic Physicians : Surgery. Raphael Casey. Evaluate and treat ordered Referral Ordered: Willie Campbell -Allopathic & Osteopathic Physicians : Surgery (related to Cellulitis of abdominal wall) ordered Referral Referred To: Willie Campbell [address] [facility]
[address] [id number] Ordered: Referrals: Allopathic & Osteopathic Physicians : [...] did not go to bariatric surgery in [place] and she told me she is getting [...] Dr. matos and [facility] but they told [...] general adult medical exam w abnormal findings Follow a low sodium diet. Relate d to Essential (primary) hypertension Increase activity. Related to Es sential (primary) hypertension Prescribed dietary intake Relate d [...]
--- OUTSIDE RECORDS SUMMARY | 2025-02-14 23:23 | XMS_ITS | Encounter Summary ---
Author Organization [facility] Healthcare Address [address] [place] [address] Care Team Providers Care Upper And Bottom Lacer Hand Name Role Phone Elliott Shea MD Primary Care Provider [phone] Elliott Shea MD Primary Care Provider [phone] Elliott Shea MD Unavailable [phone] Maryjo Damon MD Unavailable [phone] Sesar [place] MD Unavailable [phone] Encounter Details Date Type Department Care Team (Late st Contact Info) Description 04/19/2024 Orders Only [facility] PreAdmission Testing [address] [place] [address] Joy Mauro, RN Social History [...] on file 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 Gender Identity Not on file Sexual Orientation Not on file documented as of this encounter Functional Status documented as of this encounter Plan of Treatment Not on file documented as of this encounter Visit Diagnoses Not on filedocumented in this encounter Care Teams Upper And Bottom Lacer Hand Relationship Specialty Start Date End Date Elliott Shea MD PCP - General [facility] Practice 02/16/24 07/19/24 Elliott Shea MD [address] [place], [place] [address] PCP - [facility] Practice 07/20/24 Elliott Shea MD [facility] Practice 07/20/24 Maryjo Damon MD [address] [place] [address] Consulting Physician Pulmonary Disease 03/17/24 Sesar [place] MD [address] [place] [address] Consulting Physician Infectious Diseases 07/11/24 documented as of this encounter
--- OUTSIDE RECORDS SUMMARY | 2025-02-14 23:23 | XMS_ITS | Clinical Summary ---
Author Organization [facility] Address [address] [place] [address] Care Team Providers Care Frame Feeder Name Role Phone Elliott Shea MD Primary Care Provider [phone] Allergies No known active allergies Medications LOMAIRA [...] VACCINE (#1) [address] [place] [address] BCBS BLUE ACCESS/TRUE BLUE PPO Advance Directives For more information, please contact: [phone] * Full Code (Latest Code Status on [...] 12:53 PM 01/24/2019 4:55 PM Care Teams Frame Feeder Relationship Specialty Start Date End Date Elliott Shea MD [address] [place] [address] PCP - General Family Practice 10/22/23
--- OUTSIDE RECORDS SUMMARY | 2025-02-14 23:23 | XMS_ITS | Continuity of Care Document ---
Author Organization [facility] Address [address] [facility] [place] [address] Phone Care Team Providers Care Stapler Machine Name Role Phone Carroll Packer MD Unavailable [...] Diagnoses Date Provider Providers Copied on Encounter [facility], [address] [facility] [place], [address], [place] tel:[phone] [facility] No Information 9 Ochoa Singh [address], [address], [place], [place], [address] , [place]. tel:[phone] OFFICE/OUTPA TIENT VISIT, EST [facility], [address], [place], [place], [address], [place] tel:[phone] [facility] folic1 (chief complaint) lung (chief complaint) neck pain1 (chief complaint) Body mass index (BMI) 45.0-49.9, adultFolate deficiencySarcoidos is of lungShortness of breath 9 Ochoa Singh [address], [place], [place], [address] , [place]. tel:[phone] Referring Provider: Ralph Cervantes [address], [place], [place], [address]. tel:[phone] PREV VISIT, EST, AGE 40-64 [facility], [address], [place], [place], [address], [place] tel:[phone] [facility] Physical (chief complaint) Encounter for general adult medical exam w abnormal findingsFolate deficiencyEssential (primary) hypertensionSarcoid osis of lungPain in unspecified handCervicalgia 8 Ochoa Singh [address], [place], [place], [address] , [place]. tel:[phone] Referring Provider: Ralph Cervantes [address], [place], [place], [address]. tel:[phone] PREV VISIT, EST, AGE 40-64 [facility], [address], [place], [place], [address], [place] tel:[phone] [facility] Medicine Physical (chief complaint) Encounter for general adult medical exam w abnormal findingsEssential (primary) hypertensionFolate deficiencySolitary lung noduleBody mass index (BMI) 45.0-49.9, adult Mar-0 8-201 [address], [place], [place], [address] , [place]. tel:[phone] Referring Provider: Ralph Cervantes [address], [place], [place], [address]. tel:[phone] OFFICE/OUTPA TIENT VISIT, EST [facility], [address], [place], [place], [address], [place] tel:[phone] [facility] HTN (chief complaint) folate1 (chief complaint) skin1 (chief complaint) Body mass index (BMI) 45.0-49.9, adultEssential (primary) hypertensionFolate deficiencyVitamin D deficiency, unspecified 8 Ochoa Hod[address]. [address] [facility] [address], [place], [place], [address] , [place]. [phone] Referring Provider: Ralph Cervantes [address] [facility] [address], [place], [place], [address]. tel:[phone] PREV VISIT, NEW, AGE 40-64 [facility], [facility] [address] [place], [address], [place] tel:[phone] [facility] Physical (chief complaint) Encounter for general adult medical exam w abnormal findingsEssential (primary) hypertensionSolitar y lung noduleCellulitis of abdominal wall 8 Ochoa Hodges. [address], [place], [place], [address] , [place]. [phone] Referring Provider: Ralph Cervantes [address] [facility], [place], [place], [address]. tel:[phone] Family History Family Member Type Diagnosis Age [...] VIEWS ordered Referral Referred To: Beto Sykes [facility] [address] [place] [address] [place], [place] [id number] Ordered: Referrals: Allopathic & Osteopathic Physicians : Surgery. Beto Sykes. Evaluate and treat ordered Referral Ordered: CT THORAX W/O DYE ordered Referral Ordered: Raphael Casey -Allopathic & Osteopathic Physicians : Surgery (related to Body mass index (BMI) 45.0-49.9, adult) ordered Referral Referred To: Raphael Casey [address] [address] [place], [place], [id number] Ordered: Referrals: Allopathic & Osteopathic Physicians : Surgery. Raphael Casey. Evaluate and treat ordered Referral Ordered: Willie Campbell -Allopathic & Osteopathic Physicians : Surgery (related to Cellulitis of abdominal wall) ordered Referral Referred To: Willie Campbell [address] [facility]
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
--- OUTSIDE RECORDS SUMMARY | 2025-02-14 23:23 | XMS_ITS | Referral Summary ---
Author Organization [facility] Center Address [address] [place] [address] Care Team Providers Care Scientist Propagator Name Role Phone Elliott Shea MD Primary Care Provider [phone] Elliott Shea MD Unavailable [phone] Maryjo Damon MD Unavailable [phone] Sesar [place] MD Unavailable [phone] Allergies No known active allergies Medications cyanocobalamin [...] 09/07/2024 Assessment & Plan (09/07/2024 2:33 PM SALES SERVICE ROUTE MANAGER): Impression: Patient complains of bilateral lower extremity [...] stockings given to patient to fill at [facility]. -Patient to follow-up as needed. Nonsmoker [...] on file Legal Sex Female 1:40 PM SALES SERVICE ROUTE MANAGER Gender Identity Not on file Sexual Orientation Not on file Last Filed Vital Signs Vital Sign Reading Time Taken Comments Blood Pressure 131/73 09/26/2024 2:21 PM SALES SERVICE ROUTE MANAGER Pulse 71 09/26/2024 2:21 PM SALES SERVICE ROUTE MANAGER Temperature 36.6 C (97.9 F) 09/26/2024 2:21 PM SALES SERVICE ROUTE MANAGER Respiratory Rate 18 08/29/2024 8:37 AM SALES SERVICE ROUTE MANAGER Oxygen Saturation 100% 09/26/2024 2:21 PM SALES SERVICE ROUTE MANAGER Inhaled Oxygen Concentration - - Weight 85.9 kg (189 lb 4.8 oz) 09/26/2024 2:21 P M SALES SERVICE ROUTE MANAGER Height 160 cm (5' 2.99) 09/26/2024 2:21 PM SALES SERVICE ROUTE MANAGER Body Mass Index 33.54 09/26/2024 2:21 PM SALES SERVICE ROUTE MANAGER Plan of Treatment Not on file Insurance [place] [facility] [place] [facility] [place]IGNA Care Teams Scientist Propagator Relationship Specialty Start Date End Date Elliott Shea MD [address] [place] [address] PCP - General Family Practice 07/20/24 Elliott Shea MD [address] [place] [address] Family Practice 07/20/24 Maryjo Damon MD [address] [place] [address] Consulting Physician Pulmonary Disease 03/17/24 Sesar [place] MD [address] [place] [address] Consulting Physician Infectious Diseases 07/11/24
--- OUTSIDE RECORDS SUMMARY | 2025-02-14 23:23 | XMS_ITS | Clinical Summary ---
Author Organization [facility] Address [address] [facility] [place] [address] Care Team Providers Care Teacher Resource Name Role Phone Shun Browning MD Primary Care Provider [phone] Source Comments [facility],non-owned Affiliates and Associated Physician Practices is amultiple site organization consisting of ambulatory clinics and hospital sitesin [place], [place], [place] and [place]. This disclosure is being madepursuant to the Care Everywhere program and may not contain all information available regarding this patient. Last updated 18.[facility] Medications * Be aware that medications may [...] on file Legal Sex Female 6:25 PM COAT CHECK ATTENDANT Gender Identity Not on file Sexual Orientation [...] Subscriber ID:Not on file (Home) Address: [address] [facility] [address] [place] [address] Payer ID:[id number] (NAIC) Type:PPO Address: [address] [place] [id number] [facility] Care Teams Teacher Resource Relationship Specialty Start Date End Date Shun Browning MD [address] [facility] [address] [place] [address] PCP - General 08/19/08
--- OUTSIDE RECORDS SUMMARY | 2025-02-14 23:23 | XMS_ITS | Clinical Summary ---
Author Organization [facility] Address [address] [place] [address] Care Team Providers Care Hair Boiler Operator Name Role Phone Elliott Shea MD Primary Care Provider [phone] Elliott Shea MD Unavailable [phone] Maryjo Damon MD Unavailable [phone] Sesar [place] MD Unavailable [phone] Allergies No known active allergies Medications [...] 09/07/2024 Assessment & Plan (09/07/2024 2:33 PM HYPNOTHERAPIST): Impression: Patient complains of bilateral lower extremity [...] stockings given to patient to fill at [facility]. -Patient to follow-up as needed. Nonsmoker [...] on file Legal Sex Female 1:40 PM HYPNOTHERAPIST Gender Identity Not on file Sexual Orientation Not on file Obstetrics History Last Filed Vital Signs Vital Sign Reading Time Taken Comments Blood Pressure 131/73 09/26/2024 2:21 PM HYPNOTHERAPIST Pulse 71 09/26/2024 2:21 PM HYPNOTHERAPIST Temperature 36.6 C (97.9 F) 09/26/2024 2:21 PM HYPNOTHERAPIST Respiratory Rate 18 08/29/2024 8:37 AM HYPNOTHERAPIST Oxygen Saturation 100% 09/26/2024 2:21 PM HYPNOTHERAPIST Inhaled Oxygen Concentration - - Weight 85.9 kg (189 lb 4.8 oz) 09/26/2024 2:21 P M HYPNOTHERAPIST Height 160 cm (5' 2.99) 09/26/2024 2:21 PM HYPNOTHERAPIST Body Mass Index 33.54 09/26/2024 2:21 PM HYPNOTHERAPIST Plan of Treatment Health Maintenance Due Date [...] 2) 2024 Influenza Vaccine (#1) 2025 Insurance [facility] [employer] [place] [facility] [employer] Address: [address] [place] [address] [employer] [place] [facility] CIGNA CIGNA [employer] Address: [address] [place] [address] [facility] FOR[facility] [employer] Address: [address] [place] [address] Care Teams Hair Boiler Operator Relationship Specialty Start Date End Date Elliott Shea MD [address] [place] [address] PCP - General Family Practice 07/20/24 Elliott Shea MD [address] [place] [address] Family Practice 07/20/24 Maryjo Damon MD [address] [place] [address] Consulting Physician Pulmonary Disease 03/17/24 Sesar [place] MD [address] [place] [address] Consulting Physician Infectious Diseases 07/11/24
--- OUTSIDE RECORDS SUMMARY | 2025-02-14 23:23 | XMS_ITS | Clinical Summary ---
Author Organization [facility] Address [address] [place] [address] Phone Care Team Providers Care Bulb Grader Name Role Phone Jordan Javier MD Primary Care Provider [phone] Allergies No known active allergies Medications lisinopril-hydro [...] patient's age to complete this topic Insurance [facility] MEDICAID [facility] Care Teams Bulb Grader Relationship Specialty Start Date End Date Jordan Javier MD [address] [facility] [address] [place] [address] PCP - General Internal Medicine 01/15/17
== END 2025-02-14 23:28 | disposition left against medical advice (07) ==
LOC: ANHED 23:21
PROVIDERS: PCP Family Medicine
DX: M25.562 Pain in left knee (principal)
CPT/HCPCS: 99199

== ENCOUNTER 2025-03-06 07:52 | Emergency (ER) | payer OTHER, BC, SELFPAY ==
--- NOTE | ~2025-03-06 | XR_ITS ---
EXAMINATION: XR chest 2V DATE: 03/06/2025 08:34 INDICATION: Mid chest pain TECHNIQUE: PA and lateral views of the chest were obtained. COMPARISON: Chest radiograph dated 09/16/[address] dated 11/16/2023 FINDINGS: Again seen is asymmetric anteriorly directed which corresponds to a spiculated mass anterior to the b ronchus intermedius on the prior CT which raises concern for malignancy but with subsequent endobronc hial biopsy reportedly consistent with granulomatous disease. Bandlike opacity project over the anter ior mid lung on the lateral projection, likely on the right and would favor discoid atelectasis over pneumonia. No other airspace opacities, pulmonary edema, pleural effusion or pneumothorax. Heart size is normal. IMPRESSION: 1. Bandlike opacity in the anterior right midlung zone and favor atelectasis over pneumonia. 2. Chronic right hilar mass with reported prior endobronchial biopsy consistent with granulomatous di sease. Reviewed, dictated and finalized at location A. IMPRESSION: 1. Bandlike opacity in the anterior right midlung zone and favor atelectasis ov er pneumonia. 2. Chronic right hilar mass with reported prior endobronchial biopsy consistent with granulomatous disease.
[2025-03-06 07:54] VITALS: BP 142/85; TEMP 36.4
--- NOTE | 2025-03-06 07:54 | ECG_ITS ---
Test Date: 2025-03-06 08:03:56 Measurements Intervals Isola Rate: 60 P: 31 MD: 144 QRS: 29 QRSD: 103 T: 8 QT: 412 QTc: 412 Interpretive Statements SINUS RHYTHM WITH SINUS ARRHYTHMIA NORMAL ECG No previous ECG available for comparison Electronically Signed On 03-06-2025 08:41:29 CDT by Rayray Ruffin D.O.
--- OUTSIDE RECORDS SUMMARY | 2025-03-06 07:57 | XMS_ITS | Encounter Summary ---
Author Organization [facility] Healthcare Address [address] [place] [address] Care Team Providers Care Tetryl Blender Operator Name Role Phone Elliott Shea MD Primary Care Provider [phone] Elliott Shea MD Primary Care Provider [phone] Elliott Shea MD Unavailable [phone] Maryjo Damon MD Unavailable [phone] Sesar [place] MD Unavailable [phone] Encounter Details Date Type Department Care Team (Late st Contact Info) Description 04/19/2024 Orders Only [facility] PreAdmission Testing [address] [place] [address] Joy Mauro, RN Social History [...] on file Legal Sex Female 1:40 PM CITY DRIVER Gender Identity Not on file Sexual Orientation Not on file documented as of this encounter Functional Status documented as of this encounter Plan of Treatment Not on file documented as of this encounter Visit Diagnoses Not on filedocumented in this encounter Care Teams Tetryl Blender Operator Relationship Specialty Start Date End Date Elliott Shea MD PCP - General [facility] Practice 02/16/24 07/19/24 Elliott Shea MD [address], [place] [address] PCP - [facility] Practice 07/20/24 Elliott Shea MD [facility] Practice 07/20/24 Maryjo Damon MD [address] [place] [address] Consulting Physician Pulmonary Disease 03/17/24 Sesar [place] MD [address] [place] [address] Consulting Physician Infectious Diseases 07/11/24 documented as of this encounter
--- OUTSIDE RECORDS SUMMARY | 2025-03-06 07:57 | XMS_ITS | Clinical Summary ---
Author Organization [facility] Address [address] [facility] [place] [address] Care Team Providers Care Logger Driving Horses Name Role Phone Elliott Shea MD Primary Care Provider [phone] Allergies No known active allergies Medications LOMAIRA [...] VACCINE (#1) [address] [place] [address] BCBS BLUE ACCESS/TRUE BLUE PPO Advance Directives For more information, please contact: [phone] * Full Code (Latest Code Status on [...] 12:53 PM 01/24/2019 4:55 PM Care Teams Logger Driving Horses Relationship Specialty Start Date End Date Elliott Shea MD [address] [place] [address] PCP - General Family Practice 10/22/23
--- OUTSIDE RECORDS SUMMARY | 2025-03-06 07:57 | XMS_ITS | Continuity of Care Document ---
Author Organization [facility] Address [address] [place] [facility] [address] Phone Care Team Providers Care Retail Grocer Name Role Phone Carroll Packer MD Unavailable [...] Diagnoses Date Provider Providers Copied on Encounter [facility], [address] [facility] [place], [id number], [place] tel:[phone] [facility] No Information 9 Ochoa Singh [address], [address], [place], [place], [address] , [place]. tel:[phone] OFFICE/OUTPA TIENT VISIT, EST [facility], [address], [place], [place], [address], [place] tel:[phone] [facility] folic1 (chief complaint) lung (chief complaint) neck pain1 (chief complaint) Body mass index (BMI) 45.0-49.9, adultFolate deficiencySarcoidos is of lungShortness of breath 9 Ochoa Singh [address], [address], [place], [place], [address] , [place]. tel:[phone] Referring Provider: Ralph Cervantes [address], [place], [place], [address]. tel:[phone] PREV VISIT, EST, AGE 40-64 [facility], [address], [place], [place], [address], [place] tel:[phone] [facility] Physical (chief complaint) Encounter for general adult medical exam w abnormal findingsFolate deficiencyEssential (primary) hypertensionSarcoid osis of lungPain in unspecified handCervicalgia 8 Ochoa Singh [address], [place], [place], [address] , [place]. tel:[phone] Referring Provider: Ralph Cervantes [address], [place], [place], [address]. tel:[phone] PREV VISIT, EST, AGE 40-64 [facility], [address], [place], [place], [address], [place] tel:[phone] [facility] Medicine Physical (chief complaint) Encounter for general adult medical exam w abnormal findingsEssential (primary) hypertensionFolate deficiencySolitary lung noduleBody mass index (BMI) 45.0-49.9, adult Mar-0 8-201 [address] O[address], [place], [place], [address] , [place]. tel:[phone] Referring Provider: Ralph Cervantes [address], [place], [place], [address]. tel:[phone] OFFICE/OUTPA TIENT VISIT, EST [facility], [address], [place], [address], [place] tel:[phone] [facility] HTN (chief complaint) folate1 (chief complaint) skin1 (chief complaint) Body mass index (BMI) 45.0-49.9, adultEssential (primary) hypertensionFolate deficiencyVitamin D deficiency, unspecified 8 Ochoa Hodges. [address], [place], [place], [address] , [place]. [phone] Referring Provider: Ralph Cervantes [address] [facility] [address], [place], [place], [address]. tel:[phone] PREV VISIT, NEW, AGE 40-64 [facility], [facility] [address] [place], [address], [place] tel:[phone] [facility] Physical (chief complaint) Encounter for general adult medical exam w abnormal findingsEssential (primary) hypertensionSolitar y lung noduleCellulitis of abdominal wall 8 Ochoa [address]. [address], [place], [place], [address] , [place]. [phone] Referring Provider: Ralph Crevantes [address] [facility], [place], [place], [address]. tel:[phone] Family History Family Member Type Diagnosis Age [...] to Pain in unspecified hand) ordered Referral Referred To: Beto Sykes [facility] [address] [place], [place] [id number] Ordered: Referrals: Allopathic & Osteopathic Physicians : Surgery. Beto Sykes. Evaluate and treat ordered Referral Ordered: CERVICAL SPINE XRAY 7 VIEWS ordered Referral Ordered: CT THORAX W/O DYE ordered Referral Ordered: Raphael Casey -Allopathic & Osteopathic Physicians : Surgery (related to Body mass index (BMI) 45.0-49.9, adult) ordered Referral Referred To: Raphael Casey [address] [address] [place], [place], [id number] Ordered: Referrals: Allopathic & Osteopathic Physicians : Surgery. Raphael Casey. Evaluate and treat ordered Referral Ordered: Willie Campbell -Allopathic & Osteopathic Physicians : Surgery (related to Cellulitis of abdominal wall) ordered Referral Ordered: MAMMOGRAM, SCREENING ordered Referral [facility] To: [facility] [address] [facility]
[address] [id number] Ordered: Referrals: Allopathic & Osteopathic Physicians : Surgery. Willie Campbell. Evaluate and treat ordered History Of Present Illness Encounter Date [...] did not go to bariatric surgery in [place] and she told me she is getting [...] Dr. matos and also plastic surgeon in [facility] for lipo suction but they told [...]
--- OUTSIDE RECORDS SUMMARY | 2025-03-06 07:57 | XMS_ITS | Referral Summary ---
Author Organization [facility] Address [address] [place] [address] Care Team Providers Care Brazing Furnace Feeder Name Role Phone Elliott Shea MD Primary Care Provider [phone] Elliott Shea MD Unavailable [phone] Maryjo Damon MD Unavailable [phone] Sesar Durham MD Unavailable [phone] Allergies No known active allergies Medications cyanocobalamin [...] 09/07/2024 Assessment & Plan (09/07/2024 2:33 PM FREIGHT BREAKER): Impression: Patient complains of bilateral lower extremity [...] stockings given to patient to fill at [facility]. -Patient to follow-up as needed. Nonsmoker [...] on file Legal Sex Female 1:40 PM FREIGHT BREAKER Gender Identity Not on file Sexual Orientation Not on file Last Filed Vital Signs Vital Sign Reading Time Taken Comments Blood Pressure 131/73 09/26/2024 2:21 PM FREIGHT BREAKER Pulse 71 09/26/2024 2:21 PM FREIGHT BREAKER Temperature 36.6 C (97.9 F) 09/26/2024 2:21 PM FREIGHT BREAKER Respiratory Rate 18 08/29/2024 8:37 AM FREIGHT BREAKER Oxygen Saturation 100% 09/26/2024 2:21 PM FREIGHT BREAKER Inhaled Oxygen Concentration - - Weight 85.9 kg (189 lb 4.8 oz) 09/26/2024 2:21 P M FREIGHT BREAKER Height 160 cm (5' 2.99) 09/26/2024 2:21 PM FREIGHT BREAKER Body Mass Index 33.54 09/26/2024 2:21 PM FREIGHT BREAKER Plan of Treatment Not on file Insurance [employer] [place] [employer] [facility] EMPLOYEE HEALTH PLANS Address: [facility] [id number] [place] [address] [employer] [place] [employer] [place] [employer] [facility] [employer] HE[employer] PLANS Address: [facility] [address] [place] [address] [facility] [employer] [facility] [employer] Address: [facility] [address] [place] [address] Care Teams Brazing Furnace Feeder Relationship Specialty Start Date End Date Elliott Shea MD [address] [place] [address] PCP - General Family Practice 07/20/24 Elliott Shea MD [address] [place] [address] Family Practice 07/20/24 Maryjo Damon MD [address] [place] [address] Consulting Physician Pulmonary Disease 03/17/24 Sesar Durham MD [address] [place] [address] Consulting Physician Infectious Diseases 07/11/24
--- OUTSIDE RECORDS SUMMARY | 2025-03-06 07:57 | XMS_ITS | Clinical Summary ---
Author Organization [facility] Address [address] [place] [address] Phone Care Team Providers Care Sifter Operator Name Role Phone Jordan Javier MD Primary Care Provider [phone] Allergies No known active allergies Medications lisinopril-hydro [...] Cervical Cancer Screening (CCS) 2004 HPV/Cotest 2004 Cologuard 2019 Colonoscopy 2019 Colorectal Cancer Screening 2019 Immunochemical Fecal Occult Blood 2019 SARS-COV-2 Immunization (1 - 2023- season) 2024 Pneumococcal Immunization (5 0+ years) (1 of 1 - PCV) 2024 Zoster Immunization (1 of 2) 2024 Influenza Immunization (#1) 2025 Respiratory Syncytial Virus (RSV) Immunization (Adult) (1 - 1-dose 75+ series) 2049 Human Papillomavirus (HPV) Immunization Aged Out No longer eligible b ased on patient's age to complete this topic Meningococcal Immunization (ACWY) Aged Out No longer eligible based on patient's age to complete this topic Rotavirus Immunization Aged Out No lo nger eligible based on patient's age to complete this topic Insurance [facility] MEDICAID [facility] Care Teams Sifter Operator Relationship Specialty Start Date End Date Jordan Javier MD [address] [facility] [address] [place] [address] PCP - General Internal Medicine 01/15/17
--- OUTSIDE RECORDS SUMMARY | 2025-03-06 07:57 | XMS_ITS | Clinical Summary ---
Author Organization [facility] Address [address] [facility] [place] [address] Care Team Providers Care Caustic Room Operator Name Role Phone Shun Browning MD Primary Care Provider [phone] Source Comments [facility],non-owned Affiliates and Associated Physician Practices is amultiple site organization consisting of ambulatory clinics and hospital sitesin [place], [place] and [place]. This disclosure is being madepursuant to the Care Everywhere program and may not contain all information available regarding this patient. Last updated 18.[facility] Medications * Be aware that medications may [...] on file Legal Sex Female 6:25 PM CRIMINAL JUSTICE SOCIAL WORKER Gender Identity Not on file Sexual Orientation [...] Subscriber ID:Not on file (Home) Address: [address] [facility] [address] [place] [address] Payer ID:[id number] (NAIC) Type:PPO Address: [address] [place] [id number] [facility] Care Teams Caustic Room Operator Relationship Specialty Start Date End Date Shun Browning MD [address] [facility] [address] [place] [address] PCP - General 08/19/08
--- OUTSIDE RECORDS SUMMARY | 2025-03-06 07:57 | XMS_ITS | Clinical Summary ---
Author Organization [facility] Address [address] [place] [address] Care Team Providers Care Eligibility Analyst Name Role Phone Elliott Shea MD Primary Care Provider [phone] Elliott Shea MD Unavailable [phone] Maryjo Damon MD Unavailable [phone] Sesar Durham MD Unavailable [phone] Allergies No known active allergies Medications cyanocobalamin [...] 09/07/2024 Assessment & Plan (09/07/2024 2:33 PM OIL SEPARATOR): Impression: Patient complains of bilateral lower extremity [...] stockings given to patient to fill at [facility]. -Patient to follow-up as needed. Nonsmoker [...] on file Legal Sex Female 1:40 PM OIL SEPARATOR Gender Identity Not on file Sexual Orientation Not on file Obstetrics History Last Filed Vital Signs Vital Sign Reading Time Taken Comments Blood Pressure 131/73 09/26/2024 2:21 PM OIL SEPARATOR Pulse 71 09/26/2024 2:21 PM OIL SEPARATOR Temperature 36.6 C (97.9 F) 09/26/2024 2:21 PM OIL SEPARATOR Respiratory Rate 18 08/29/2024 8:37 AM OIL SEPARATOR Oxygen Saturation 100% 09/26/2024 2:21 PM OIL SEPARATOR Inhaled Oxygen Concentration - - Weight 85.9 kg (189 lb 4.8 oz) 09/26/2024 2:21 P M OIL SEPARATOR Height 160 cm (5' 2.99) 09/26/2024 2:21 PM OIL SEPARATOR Body Mass Index 33.54 09/26/2024 2:21 PM OIL SEPARATOR Plan of Treatment Health Maintenance Due Date [...] 2) 2024 Influenza Vaccine (#1) 2025 Insurance [facility] [employer] [place] [facility] [employer] [place] [facility] CIGNA CIGNA [facility] Care Teams Eligibility Analyst Relationship Specialty Start Date End Date Elliott Shea MD [address] [place] [address] PCP - General Family Practice 07/20/24 Elliott Shea MD [address] [place] [address] Family Practice 07/20/24 Maryjo Damon MD [address] [place] [address] Consulting Physician Pulmonary Disease 03/17/24 Sesar Durham MD [address] [place] [address] Consulting Physician Infectious Diseases 07/11/24
[2025-03-06 08:01] VITALS: BP 142/85; PULSE 54; RESP 18; TEMP 36.4; O2SAT 100
[2025-03-06 08:24] LABS: Hematocrit 40.2 % (37.0-47.0); Hemoglobin 13.1 g/dL (12.0-15.0); Immature Granulocyte Percent A 0.0 % (0-0.5); Lymphocytes Absolute Auto 1.57 K/mm3 (0.9-3.2); Mean Corpuscular HGB Conc 32.6 g/dl (32-36); Mean Corpuscular Hemoglobin 29.6 pg (26-34); Mean Corpuscular Volume 90.7 fl (80-100); Nucleated Red Blood Cells Absolute Auto 0.000 K/mm3 (0.0-0.012); Nucleated Red Blood Cells Perc 0.0 % (0.0-0.2); Platelet Count Result 256 k/mm3 (150-375); Red Blood Count 4.43 M/mm3 (4.2-5.4); White Blood Count 4.4 K/mm3 (4.5-10.0)
[2025-03-06 08:35] LABS: INR 1.0; Prothrombin Time 12.9 Seconds (11.1-14.7)
[2025-03-06 08:36] LABS: Partial Thromboplastin Time 31.7 Seconds (22.3-36.8)
[2025-03-06] MEDS: ASPIRIN 81 MG CHEWABLE TABLET 324 MG PO (08:38)
--- OUTSIDE RECORDS SUMMARY | 2025-03-06 08:40 | XMS_ITS | Encounter Summary ---
Author Organization [facility] Address [address] [place] [address] Care Team Providers Care Animal Stunner Name Role Phone Elliott Shea MD Primary Care Provider [phone] Elliott Shea MD Primary Care Provider [phone] Elliott Shea MD Unavailable [phone] Maryjo Damon MD Unavailable [phone] Sesar Durham MD Unavailable [phone] Encounter Details Date Type Department Care Team (Late st Contact Info) Description 04/19/2024 Orders Only [facility] Testing [address] [place] [address] Joy Mauro, RN Social History [...] on file Legal Sex Female 1:40 PM UAT TESTER Gender Identity Not on file Sexual Orientation Not on file documented as of this encounter Functional Status documented as of this encounter Plan of Treatment Not on file documented as of this encounter Visit Diagnoses Not on filedocumented in this encounter Care Teams Animal Stunner Relationship Specialty Start Date End Date Elliott Shea MD PCP - General [facility] Practice 02/16/24 07/19/24 Elliott Shea MD [address] [place], [place] [address] PCP - [facility] Practice 07/20/24 Elliott Shea MD [facility] Practice 07/20/24 Maryjo Damon MD [address] [place] [address] Consulting Physician Pulmonary Disease 03/17/24 Sesar Durham MD [address] [place] [address] Consulting Physician Infectious Diseases 07/11/24 documented as of this encounter
--- OUTSIDE RECORDS SUMMARY | 2025-03-06 08:40 | XMS_ITS | Referral Summary ---
Author Organization [facility] Address [address] [place] [address] Care Team Providers Care Tool And Die Manager Name Role Phone Elliott Shea MD Primary Care Provider [phone] Elliott Shea MD Unavailable [phone] Maryjo Damon MD Unavailable [phone] Sesar Durham MD Unavailable [phone] Allergies No known active allergies Medications [...] 09/07/2024 Assessment & Plan (09/07/2024 2:33 PM RETORT FORKER): Impression: Patient complains of bilateral lower extremity [...] stockings given to patient to fill at [facility]. -Patient to follow-up as needed. Nonsmoker [...] on file Legal Sex Female 1:40 PM RETORT FORKER Gender Identity Not on file Sexual Orientation Not on file Last Filed Vital Signs Vital Sign Reading Time Taken Comments Blood Pressure 131/73 09/26/2024 2:21 PM RETORT FORKER Pulse 71 09/26/2024 2:21 PM RETORT FORKER Temperature 36.6 C (97.9 F) 09/26/2024 2:21 PM RETORT FORKER Respiratory Rate 18 08/29/2024 8:37 AM RETORT FORKER Oxygen Saturation 100% 09/26/2024 2:21 PM RETORT FORKER Inhaled Oxygen Concentration - - Weight 85.9 kg (189 lb 4.8 oz) 09/26/2024 2:21 P M RETORT FORKER Height 160 cm (5' 2.99) 09/26/2024 2:21 PM RETORT FORKER Body Mass Index 33.54 09/26/2024 2:21 PM RETORT FORKER Plan of Treatment Not on file Insurance [employer] [place] [employer] [place] [facility] EMPL[employer]EE HE[employer] PL[employer] Address: [facility] [address] [place] [address] [employer] [place] [employer] [place] [employer] [facility] [employer] Address: [facility] [address] [place] [address] [facility] [employer] [facility] [employer] Address: [facility] [address] [place] [address] Care Teams Tool And Die Manager Relationship Specialty Start Date End Date Elliott Shea MD [address] [place] [address] PCP - General Family Practice 07/20/24 Elliott Shea MD [address] [place] [address] Family Practice 07/20/24 Maryjo Damon MD [address] [place] [address] Consulting Physician Pulmonary Disease 03/17/24 Sesar Durhma MD [address] [place] [address] Consulting Physician Infectious Diseases 07/11/24
--- OUTSIDE RECORDS SUMMARY | 2025-03-06 08:40 | XMS_ITS | Clinical Summary ---
Author Organization [facility] Address [address] [facility] [place] [address] Care Team Providers Care Chief Scientist Name Role Phone Shun Browning MD Primary Care Provider Source Comments [facility],non-owned Affiliates and Associated Physician Practices is amultiple site organization consisting of ambulatory clinics and hospital sitesin [place], [place] and [place]. This disclosure is being madepursuant to the Care Everywhere program and may not contain all information available regarding this patient. Last updated 18.[facility] Medications * Be aware that medications may [...] file Legal Sex Female 6:25 PM SENIOR FINANCIAL ANALYST Gender Identity Not on file Sexual Orientation [...] ID:Not on file (Home) Address: [address] [place] [address] Payer ID:[id number] (NAIC) Type:PPO Address: [address] [place] [id number] [facility] Care Teams Chief Scientist Relationship Specialty Start Date End Date Shun Browning MD [address] [facility] [address] [place] [address] PCP - General 08/19/08
--- OUTSIDE RECORDS SUMMARY | 2025-03-06 08:41 | XMS_ITS | Clinical Summary ---
Author Organization [facility] Address [address] [facility] [address] Care Team Providers Care Grade And Center Marker Name Role Phone Elliott Shea MD Primary Care Provider [phone] Allergies No known active allergies Medications LOMAIRA [...] VACCINE (#1) [address] [place] [address] BCBS BLUE ACCESS/TRUE BLUE PPO Advance Directives For more information, please contact: [phone] * Full Code (Latest Code Status on [...] 12:53 PM 01/24/2019 4:55 PM Care Teams Grade And Center Marker Relationship Specialty Start Date End Date Elliott Shea MD [address] [place] [address] PCP - General Family Practice 10/22/23
--- OUTSIDE RECORDS SUMMARY | 2025-03-06 08:41 | XMS_ITS | Clinical Summary ---
Author Organization [facility] Address [address] [place] [address] Phone Care Team Providers Care Fishing Tackle Repairer Name Role Phone Jordan Javier MD Primary Care Provider [phone] Allergies No known active allergies Medications lisinopril-hydro [...] patient's age to complete this topic Insurance [facility] MEDICAID [employer] Care Teams Fishing Tackle Repairer Relationship Specialty Start Date End Date Jordan Javier MD [address] [facility] [address] [place] [address] PCP - General Internal Medicine 01/15/17
--- OUTSIDE RECORDS SUMMARY | 2025-03-06 08:41 | XMS_ITS | Clinical Summary ---
Author Organization [facility] Address [address] [place] [address] Care Team Providers Care Combination Presser Name Role Phone Elliott Shea MD Primary Care Provider [phone] Elliott Shea MD Unavailable [phone] Maryjo Damon MD Unavailable [phone] Sesar Durham MD Unavailable [phone] Allergies No known active allergies Medications [...] 09/07/2024 Assessment & Plan (09/07/2024 2:33 PM TIER LIFT TRUCK OPERATOR): Impression: Patient complains of bilateral lower [...] stockings given to patient to fill at [facility]. -Patient to follow-up as needed. Nonsmoker [...] on file Legal Sex Female 1:40 PM TIER LIFT TRUCK OPERATOR Gender Identity Not on file Sexual Orientation Not on file Obstetrics History Last Filed Vital Signs Vital Sign Reading Time Taken Comments Blood Pressure 131/73 09/26/2024 2:21 PM TIER LIFT TRUCK OPERATOR Pulse 71 09/26/2024 2:21 PM TIER LIFT TRUCK OPERATOR Temperature 36.6 C (97.9 F) 09/26/2024 2:21 PM TIER LIFT TRUCK OPERATOR Respiratory Rate 18 08/29/2024 8:37 AM TIER LIFT TRUCK OPERATOR Oxygen Saturation 100% 09/26/2024 2:21 PM TIER LIFT TRUCK OPERATOR Inhaled Oxygen Concentration - - Weight 85.9 kg (189 lb 4.8 oz) 09/26/2024 2:21 P M TIER LIFT TRUCK OPERATOR Height 160 cm (5' 2.99) 09/26/2024 2:21 PM TIER LIFT TRUCK OPERATOR Body Mass Index 33.54 09/26/2024 2:21 PM TIER LIFT TRUCK OPERATOR Plan of Treatment Health Maintenance Due [...] 2024 Influenza Vaccine (#1) 2025 Insurance [facility] [employer] [facility] [employer] [facility] CIGNA CIGNA [facility] Care Teams Combination Presser Relationship Specialty Start Date End Date Elliott Shea MD [address] [place] [address] PCP - General Family Practice 07/20/24 Elliott Shea MD [address] [place] [address] Family Practice 07/20/24 Maryjo Damon MD [address] [place] [address] Consulting Physician Pulmonary Disease 03/17/24 Sesar Durham MD [address] [place] [address] Consulting Physician Infectious Diseases 07/11/24
--- OUTSIDE RECORDS SUMMARY | 2025-03-06 08:41 | XMS_ITS | Continuity of Care Document ---
Author Organization [facility] Address [address] [facility] [place] [address] Phone Care Team Providers Care Pulling Machine Operator Name Role Phone Carroll Packer MD Unavailable [...] Diagnoses Date Provider Providers Copied on Encounter [facility], [address] [facility] [place], [id number], [place] tel:[phone] [facility] No Information 9 Ochoa Singh [address], [address], [place], [place], [address] , [place]. tel:[phone] OFFICE/OUTPA TIENT VISIT, EST [facility], [address], [place], [place], [address], [place] tel:[phone] [facility] folic1 (chief complaint) lung (chief complaint) neck pain1 (chief complaint) Body mass index (BMI) 45.0-49.9, adultFolate deficiencySarcoidos is of lungShortness of breath 9 Ochoa Singh [address], [address], [place], [place], [address] , [place]. tel:[phone] Referring Provider: Ralph Cervantes [address], [place], [place], [address]. tel:[phone] PREV VISIT, EST, AGE 40-64 [facility], [address], [place], [place], [address], [place] tel:[phone] [facility] Physical (chief complaint) Encounter for general adult medical exam w abnormal findingsFolate deficiencyEssential (primary) hypertensionSarcoid osis of lungPain in unspecified handCervicalgia 8 Ochoa Singh [address], [address], [place], [place], [address] , [place]. tel:[phone] Referring Provider: Ralph Cervantes [address], [place], [place], [address]. tel:[phone] PREV VISIT, EST, AGE 40-64 [facility], [address], [place], [place], [address], [place] tel:[phone] [facility] Physical (chief complaint) Encounter for general adult medical exam w abnormal findingsEssential (primary) hypertensionFolate deficiencySolitary lung noduleBody mass index (BMI) 45.0-49.9, adult Mar-0 8-201 [address], [place], [place], [address] , [place]. tel:[phone] Referring Provider: Ralph Cervantes [address], [place], [place], [address]. tel:[phone] OFFICE/OUTPA TIENT VISIT, EST [facility], [address], [place], [place], [address], [place] tel:[phone] [facility] HTN (chief complaint) folate1 (chief complaint) skin1 (chief complaint) Body mass index (BMI) 45.0-49.9, adultEssential (primary) hypertensionFolate deficiencyVitamin D deficiency, unspecified 8 Ochoa Hodges. [address] [facility] [address], [place], [place], [address] , [place]. [phone] Referring Provider: Ralph Cervantes [address] [facility] [address], [place], [place], [address]. tel:[phone] PREV VISIT, NEW, AGE 40-64 [facility], [facility] [address] [place], [address], [place] tel:[phone] [facility] Physical (chief complaint) Encounter for general adult medical exam w abnormal findingsEssential (primary) hypertensionSolitar y lung noduleCellulitis of abdominal wall 8 Ochoa Hodges. [address], [place], [place], [address] , [place]. [phone] Referring Provider: Ralph Cervantes [address] [facility], [place], [place], [address]. tel:[phone] Family History Family Member Type Diagnosis Age At Onset Father Problem (finding) Alive and well Mother Problem (finding) Alive and well Brother Problem (finding) Alive and well Payers Payer name Insurance type Covered constitution party ID Authoriza tion(s) No Information Social History [...] VIEWS ordered Referral Referred To: Beto Sykes [facility] [address] [place], [place] [id number] Ordered: Referrals: Allopathic & Osteopathic Physicians : Surgery. Beto Sykes. Evaluate and treat ordered Referral Ordered: CT THORAX W/O DYE ordered Referral Ordered: Raphael Casey -[facility] Phys[facility] : Surgery (related to Body mass index (BMI) 45.0-49.9, adult) ordered Referral Referred To: Raphael Casey [address] [address] [place], [place], [id number] Ordered: Referrals: Allopathic & Osteopathic Physicians : Surgery. Raphael Casey. Evaluate and treat ordered Referral Ordered: Willie Campbell -[facility] : Surgery (related to Cellulitis of abdominal wall) ordered Referral Referred To: Willie Campbell [address] [facility]
[address] [phone] Ordered: Referrals: Allopathic & Osteopathic Physicians : [...] did not go to bariatric surgery [place] and she told me she is getting [...] Dr. matos and also plastic surgeon in [facility] for [facility]o suction but they told [...]
[2025-03-06 08:57] LABS: Alanine Aminotransferase 19 U/L (6-35); Albumin Level 4.4 g/dL (3.5-5.1); Alkaline Phosphatase 61 U/L (38-126); Anion Gap 9 mmol/L (4-12); Aspartate Amino Transferase 27 U/L (14-36); Bilirubin,Total 0.4 mg/dL (0.2-1.3); Blood Urea Nitrogen 7 mg/dL (7-17); Calcium 9.4 mg/dL (8.4-10.2); Carbon Dioxide 24 mmol/L (22-30); Chloride 106 mmol/L (98-107); Estimated CRCL calculation 89 ml/min; Estimated Glomerular Filt Rate > 60; Glucose 76 mg/dL (65-110); Lipase 77 U/L (23-300); Potassium 4.0 mmol/L (3.4-5.0); Sodium 139 mmol/L (137-145); Total Protein 7.9 g/dL (6.3-8.2)
[2025-03-06 09:04] LABS: Troponin I < 0.012 ng/mL (0.000-0.034)
--- NOTE | 2025-03-06 09:21 | ED_ITS ---
HPI - Chest Pain General Chief Complaint: Chest Pain Stated Complaint: chest pain Time Seen by Provider: 03/06/25 08:03 Source: patient Mode of arrival: ambulatory Limitations: no limitations History of Present Illness HPI narrative: 49-year-old with a history of diabetes presents to the ER with a complaint of 1 day history of right-sided chest pain constant in nature at times hurts with a deep breathing and movement. She denies any cough or fever or chills. No previous history of CAD. Related Data Home Medications ?Medication ?Instructions ?Recorded ?Confirmed ?Last Taken ?Type multivitamin (Daily Multi-Vitamin 2 tablet PO DAILY 12/08/19 03/08/24 04/20/22 History tablet) mecobalamin (vitamin B12) 5,000 5,000 mcg PO EVERY OTHER DAY 02/12/21 03/08/24 04/20/22 History mcg disintegrating tablet Allergies Allergy/AdvReac Type Severity Reaction Status Date / Time No Known Allergies Allergy Verified 03/06/25 07:54 Review of Systems 2 Review of Systems: All systems reviewed & are unremarkable except as noted in HPI and below Constitutional: Constitutional: Reports no additional constitutional complaints Eyes: Eyes: Reports no additional eye complaints ENT: Reports system reviewed and no additional complaints, except as documented Cardiovascular: Cardiovascular: Reports as per HPI Respiratory: Respiratory: Reports no additional respiratory complaints Gastrointestinal: Gastrointestinal: Reports no additional gastrointestinal complaints Musculoskeletal: Musculoskeletal: Reports no additional musculoskeletal complaints Integumentary/Breasts: Skin/Breast: Reports system reviewed and no additional complaints, except as docu Neurologic: Reports system reviewed and no additional complaints, except as documented [facility] Past Medical History Medical History Vaginitis Stress incontinence in female Uterine fibroid Diabetes Internal hemorrhoid, bleeding Degenerative joint disease of knee Medial meniscus tear Yeast infection of the skin Left knee pain Encounter for long-term (current) use of other medications Abdominal pannus Symptomatic abdominal apron Right foot pain Chest wall pain Encounter for surgical aftercare following surgery on the digestive system Residual hemorrhoidal skin tag Anal pruritus Anal fissure Rectal bleeding Tinea corporis Restless legs syndrome Body mass index (bmi) 37.0-37.9, adult Chronic fatigue Chronic right shoulder pain Essential (primary) hypertension Hypersomnia Mixed restrictive and obstructive lung disease Overweight (11/30/16) Sarcoid Unspecified hemorrhoids Surgical History Surgical History Status post panniculectomy History of tubal ligation (~2007) History of dilation and curettage (04/23/11) H/O gastric sleeve (03/08/19) History of endometrial ablation (05/07/11) History of 1991 1993 2007 H/O hemorrhoidectomy Family History Family History Father Hypertension Mother Hypertension ASD (atrial septal defect) COPD (chronic obstructive pulmonary disease) Sibling Patient's sister is in good health Patient's brother is in good health Seizure Other Lung cancer Heart disease Grandparent Hypertension paternal grandmother maternal grandfather Other Diabetes mellitus Family history of malignant neoplasm Social History Social History Smoking status: Never smoker Second hand tobacco smoke exposure: Yes Alcohol intake: current Alcohol use details: Special Occasions Substance use: never Substance use type: marijuana Lack of Transportation: YES Lack of Food: Often True Current Housing: I Do Not Have Housing Concerned About Future Housing: Decline to Answer Difficulty Paying Gas/Electric Bills: YES Difficulty Paying for Meds: YES Currently Unemployed: No Education: High School Diploma/GED Difficulty w/ Childcare or Family Care: No Living arrangements: with family 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 HEAD: Normocephalic, atraumatic. EYES: PERRLA and EOMI. ENT: Nares clear, no rhinorrhea or epistaxis. Mucous membranes moist. NECK: Supple. CHEST: Clear to auscultation. No respiratory distress. HEART: Regular rate and rhythm. No murmur heard. Normal peripheral pulses. ABDOMEN: Soft, nontender, nondistended, normal active bowel sounds. EXTREMITIES: Normal range of motion. No edema. SKIN: Warm, dry, no rash. NEURO: No focal deficits. Alert and oriented x3. PSYCH: Normal mood and affect. Course Course Emergency Course: Notified patient about her lab work, EKG and chest x-ray findings. She states she is feeling slightly better. Advised to continue home medications, follow-up with her primary doctor earlier Vital Signs Vital signs: Vital Signs Temperature 36.4 C 03/06/25 07:54 Blood Pressure 142/85 H 03/06/25 07:54 Temperature 36.4 C 03/06/25 08:01 Pulse Rate 54 L 03/06/25 08:01 Respiratory Rate 18 03/06/25 08:01 Blood Pressure 142/85 H 03/06/25 08:01 Pulse Oximetry 100 03/06/25 08:01 Oxygen Delivery Room Air 03/06/25 08:01 MDM - Chest Pain Lab Data 03/06/25 08:13 03/06/25 08:13 Labs: Lab Results 03/06/25 Range/Units 08:13 WBC 4.4 L (4.5-10.0) K/mm3 RBC 4.43 (4.2-5.4) M/mm3 Hgb 13.1 (12.0-15.0) g/dL Hct 40.2 (37.0-47.0) % MCV 90.7 (80-100) fl MCH 29.6 (26-34) pg MCHC 32.6 (32-36) g/dl RDW 13.9 (11.5-14.5) % Plt Count 256 (150-375) k/mm3 MPV 10.3 (7.4-10.4) fl Immature Gran % (Auto) 0.0 (0-0.5) % Neut % (Auto) 53.8 (45.5-73.1) % Lymph % (Auto) 36.1 (18.3-44.2) % [place] % (Auto) 6.9 (2.6-8.5) % Eos % (Auto) 2.3 (0-4.4) % Baso % (Auto) 0.9 (0.2-1.2) % Lymph # (Auto) 1.57 (0.9-3.2) K/mm3 [place] # (Auto) 0.3 (0.1-0.6) K/mm3 Eos # (Auto) 0.1 (0-0.3) K/mm3 Baso # (Auto) 0.0 (0.0-0.1) K/mm3 Abs Immat Gran (auto) 0.00 (0.00-0.031) K/mm3 Absolute Neuts (auto) 2.3 (1.3-6.7) K/mm3 Absolute Nucleated RBC 0.000 (0.0-0.012) K/mm3 Nucleated RBC % 0.0 (0.0-0.2) % PT 12.9 (11.1-14.7) Seconds INR 1.0 APTT 31.7 (22.3-36.8) Seconds Sodium 139 (137-145) mmol/L Potassium 4.0 (3.4-5.0) mmol/L Chloride 106 (98-107) mmol/L Carbon Dioxide 24 (22-30) mmol/L Anion Gap 9 (4-12) mmol/L BUN 7 (7-17) mg/dL Creatinine 0.65 L (0.7-1.0) mg/dL Estim Creat Clear Calc 89 ml/min Estimated GFR > 60 (59 - ) Glucose 76 (65-110) mg/dL Calcium 9.4 (8.4-10.2) mg/dL Total Bilirubin 0.4 (0.2-1.3) mg/dL AST 27 (14-36) U/L ALT 19 (6-35) U/L Alkaline Phosphatase 61 (38-126) U/L Troponin I < 0.012 (0.000-0.034) ng/mL Total Protein 7.9 (6.3-8.2) g/dL Albumin 4.4 (3.5-5.1) g/dL Lipase 77 (23-300) U/L Discharge Plan Discharge Clinical Impression: Chest pain Qualifiers: Chest pain type: unspecified Qualified Code(s): R07.9 - Chest pain, unspecified Patient Disposition: Home Condition: Stable Instructions: Chest Pain (ED) Additional Instructions: Continue home medications, follow-up with your primary doctor Patient Language: Turkmen Prescriptions: No Action sulfamethoxazole-trimethoprim 800-160 mg tablet 1 tablet PO Q12H 5 Days Qty: 10 0RF mupirocin 2 % ointment 1 applic topical BID 7 Days Qty: 22 0RF multivitamin [Daily Multi-Vitamin] Tablet 2 tablet PO DAILY methylprednisolone [Medrol (Anuj)] 4 mg tablets,dose pack See Rx Instructions PO PER PKG DIR Qty: 21 0RF Rx Instructions: PO PER PKG DIR ropinirole 0.25 mg tablet 0.25 mg PO TID PRN (Reason: rls) Qty: 60 0RF mecobalamin (vitamin B12) 5,000 mcg tablet,disintegrating 5,000 mcg PO EVERY OTHER DAY gabapentin 100 mg capsule 100 mg PO BID Qty: 60 1RF estradiol 0.01 % (0.1 mg/gram) cream 1 g vaginal 3XW Qty: 42.5 3RF acetaminophen 500 mg capsule 500 mg PO QID PRN (Reason: pain) Qty: 20 0RF cyclobenzaprine 10 mg tablet 10 mg PO TID PRN (Reason: muscle spasm) Qty: 20 0RF cyclobenzaprine 10 mg tablet 10 mg PO TID PRN (Reason: muscle spasm) Qty: 14 0RF lidocaine 5 % adhesive patch,medicated 1 patch topical DAILY Qty: 15 0RF Rx Instructions: leave on most painful area for up to 12 hrs. do not use more than 1 patch in a 24-hour period. acetaminophen 500 mg capsule 500 mg PO Q6H PRN (Reason: pain) Qty: 14 0RF cholecalciferol (vitamin D3) 1,250 mcg (50,000 unit) capsule 1,250 mcg PO WEEKLY Qty: 14 1RF (DME) pen needle, diabetic [Ultra-Thin II Ins Pen [place]] 29 gauge x 1/2 needle See Rx Instructions .Route Qty: 100 1RF Rx Instructions: inject once daily As directed Wegovy 1 mg/0.5 mL pen injector 1 mg subcut WEEKLY Qty: 2 0RF Rx Instructions: administer weeks 9 through 12 of therapy Wegovy 1.7 mg/0.75 mL pen injector 1.7 mg subcut WEEKLY Qty: 3 0RF Rx Instructions: administer weeks 13 through 16 of therapy Wegovy 2.4 mg/0.75 mL pen injector 2.4 mg subcut WEEKLY Qty: 3 5RF fluconazole 150 mg tablet 150 mg PO ONCE Qty: 1 1RF Rx Instructions: as a single dose Follow-up/Referrals: Elliott Shea MD [Primary Care Provider] - Time of Disposition: 09:24
[2025-03-06 09:53] VITALS: BP 126/66; PULSE 63; RESP 14; O2SAT 99
== END 2025-03-06 09:54 | disposition home or self-care (01) ==
PROVIDERS: Emergency Provider Family Medicine; PCP Family Medicine
DX: R07.9 Chest pain, unspecified (principal); E11.9 Type 2 diabetes mellitus without complications; I10 Essential (primary) hypertension; J44.9 Chronic obstructive pulmonary disease, unspecified; M17.9 Osteoarthritis of knee, unspecified; N39.3 Stress incontinence (female) (male); G25.81 Restless legs syndrome; Z98.84 Bariatric surgery status; Z77.22 Contact with and (suspected) exposure to environmental tobacco smoke (acute) (chronic); Z79.899 Other long term (current) drug therapy
CPT/HCPCS: 36415; 71046; 80053; 83690; 84484; 85025; 85610; 85730; 93005; 99284; A9270